=== PATIENT | male | born 1985 | race Caucasian/White ===

== ENCOUNTER 2017-02-08 09:13 | Observation (INO) | payer OTHER ==
[~2017-02-08] VITALS: Ht 195.6 cm; Wt 113.4 kg
[~2017-02-08 09:13] MED LIST: CALC200T23 PO; HYDR-2758 PO; IBUP-1027 PO; LISI40TA PO; MIRT15TA3 PO; ZIPR60CA2 PO
[2017-02-08] MEDS ORDERED: IV NORMAL SALINE 1000ML BAG 1,000 ML IV ONE ×2 (09:30→16:45)
[2017-02-08] MEDS ORDERED: PANTOPRAZOLE IV PUSH 40 MG VIAL. IVP ONE (09:30)
[2017-02-08] MEDS ORDERED: ONDANSETRON PF 4 MG/2 ML VIAL. IV ONE (09:30)
--- NOTE | 2017-02-08 09:35 | PHYS DOC ---
Past Medical History Past Medical History: Hypertension, Schizophrenia, Other Additional Past Medical Histor: PANCREATITIS, sepsis Past Surgical History: Other Additional Past Surgical Histo: ORAL SURGERY Alcohol Use: Heavy Drug Use: None Adult General Chief Complaint Chief Complaint: ABDOMINAL PAIN HPI HPI Patient is a 31 year old male presents to the emergency department stating that 3 days ago he was drinking beer. He states he develop nausea and vomiting since that time. He states within the last 24 hours he has vomited 10 times clear to green in color. He states for the last 3 days he has vomited 20+ times. He denies fever, chills, diarrhea and UTI symptoms. He does state he is having abdominal pain and discomfort that is different than his normal pancreatitis. Patient states he has hx of pancreatitis. Review of Systems Review of Systems Constitutional: Denies fever or chills [] Eyes: Denies change in visual acuity, redness, or eye pain [] HENT: Denies nasal congestion or sore throat [] Respiratory: Denies cough or shortness of breath [] Cardiovascular: No additional information not addressed in HPI [] GI: abdominal pain, nausea, vomiting, denies bloody stools or diarrhea [] : Denies dysuria or hematuria [] Musculoskeletal: Denies back pain or joint pain [] Integument: Denies rash or skin lesions [] Neurologic: Denies headache, focal weakness or sensory changes [] Endocrine: Denies polyuria or polydipsia [] Current Medications Current Medications Current Medications Medications (Trade) Dose Ordered Sig/Jamey Start Time Stop Time Status Last Admin Dose Admin Info (Do NOT chart on this entry -- for MONITORING) 1 each PRN DAILY PRN 02/08/17 09:45 02/10/17 09:44 Iohexol (Omnipaque 300 Mg/ml) 75 ml 1X ONCE 02/08/17 09:45 02/08/17 09:46 DC 02/08/17 10:04 75 ML Morphine Sulfate 4 mg PRN Q15MIN PRN 02/08/17 09:45 02/08/17 13:13 DC Ondansetron HCl (Zofran) 4 mg 1X ONCE 02/08/17 09:30 02/08/17 09:32 DC 02/08/17 09:54 4 MG Pantoprazole Sodium (Protonix Vial) 40 mg 1X ONCE 02/08/17 09:30 02/08/17 09:32 DC 02/08/17 09:54 40 MG Potassium Chloride (Klor-Con) 20 meq 1X ONCE 02/08/17 11:15 02/08/17 11:16 DC Sodium Chloride 1,000 ml @ 1,000 mls/hr 1X ONCE 02/08/17 09:30 02/08/17 10:29 DC 02/08/17 09:55 1,000 MLS/HR Allergies Allergies Allergies Coded Allergies Type Severity Reaction Last Updated Verified I S O L A T I O N *CONTACT* Allergy Unknown 07/31/15 Yes Penicillins Adverse Reaction Intermediate SEE COMMENT 07/30/15 Yes Physical Exam Physical Exam Constitutional: Well developed, well nourished, no acute distress, non-toxic appearance. [] HENT: Normocephalic, atraumatic, bilateral external ears normal, oropharynx moist, no oral exudates, nose normal. [] Eyes: PERRLA, EOMI, conjunctiva normal, no discharge. [] Neck: Normal range of motion, no tenderness, supple, no stridor. [] Cardiovascular:Heart rate regular rhythm, no murmur [] Lungs & Thorax: Bilateral breath sounds clear to auscultation [] Abdomen: Bowel sounds hypoactive, soft, generalized abdominal tenderness, no masses, no pulsatile masses. No rebound tenderness noted no guarding noted. Skin: Warm, dry, no erythema, no rash. [] Back: No tenderness Extremities: No tenderness, no cyanosis, no clubbing, ROM intact, no edema. [] Neurologic: Alert and oriented X 3, normal motor function, normal sensory function, no focal deficits noted. [] Psychologic: Affect normal, judgement normal, mood normal. [] Current Patient Data Vital Signs Vital Signs Date Time Temp Pulse Resp B/P (MAP) Pulse Ox O2 Delivery O2 Flow Rate FiO2 02/08/17 09:56 87 16 128/88 (101) 98 Room Air 02/08/17 09:25 98.1 98.1 Lab Values Laboratory Tests Test 02/08/17 09:20 02/08/17 09:30 Urine Collection Type Unknown Urine Color Yellow Urine Clarity Clear Urine pH 5.5 Urine Specific [place] 1.015 Urine Protein Negative mg/dL (NEG-TRACE) Urine Glucose (UA) Negative mg/dL (NEG) Urine Ketones (Stick) >=80 mg/dL (NEG) Urine Blood Small (NEG) Urine Nitrite Negative (NEG) Urine Bilirubin Small (NEG) Urine Urobilinogen Dipstick 0.2 mg/dL (0.2 mg/dL) Urine Leukocyte Esterase Negative (NEG) Urine RBC Occ /HPF (0-2) Urine WBC 11-20 /HPF (0-4) Urine Squamous Epithelial Cells Occ /LPF Urine Bacteria Few /HPF (0-FEW) Urine Hyaline Casts Few /HPF Urine Mucus Slight /LPF White Blood Count 8.8 x10^3/uL (4.0-11.0) Red Blood Count 5.68 x10^6/uL (4.30-5.70) Hemoglobin 17.1 g/dL (13.0-17.5) Hematocrit 47.7 % (39.0-53.0) Mean Corpuscular Volume 84 fL (79-100) Mean Corpuscular Hemoglobin 30 pg (25-35) Mean Corpuscular Hemoglobin Concent 36 g/dL (31-37) Red Cell Distribution Width 13.9 % (11.5-14.5) Platelet Count 247 x10^3/uL (140-400) Neutrophils (%) (Auto) 84 % (31-73) H Lymphocytes (%) (Auto) 10 % (24-48) L Monocytes (%) (Auto) 6 % (0-9) Eosinophils (%) (Auto) 0 % (0-3) Basophils (%) (Auto) 1 % (0-3) Neutrophils # (Auto) 7.4 x10^3uL (1.8-7.7) Lymphocytes # (Auto) 0.9 x10^3/uL (1.0-4.8) L Monocytes # (Auto) 0.5 x10^3/uL (0.0-1.1) Eosinophils # (Auto) 0.0 x10^3/uL (0.0-0.7) Basophils # (Auto) 0.1 x10^3/uL (0.0-0.2) Sodium Level 136 mmol/L (136-145) Potassium Level 3.3 mmol/L (3.5-5.1) L Chloride Level 94 mmol/L (98-107) L Carbon Dioxide Level 30 mmol/L (21-32) Anion Gap 12 (6-14) Blood Urea Nitrogen 9 mg/dL (8-26) Creatinine 1.2 mg/dL (0.7-1.3) Estimated GFR (Cockcroft-Gault) 71.1 BUN/Creatinine Ratio 8 (6-20) Glucose Level 145 mg/dL (70-99) H Calcium Level 10.2 mg/dL (8.5-10.1) H Total Bilirubin 2.1 mg/dL (0.2-1.0) H Aspartate Amino Transferase (AST) 35 U/L (15-37) Alanine Aminotransferase (ALT) 48 U/L (16-63) Alkaline Phosphatase 115 U/L (46-116) Total Protein 8.5 g/dL (6.4-8.2) H Albumin 4.7 g/dL (3.4-5.0) Albumin/Globulin Ratio 1.2 (1.0-1.7) Amylase Level 26 U/L (25-115) Lipase 101 U/L (73-393) Laboratory Tests 02/08/17 09:30 Laboratory Tests 02/08/17 09:30 EKG EKG [] Radiology/Procedures Radiology/Procedures [][facility] [address] [place] [address] IMAGING REPORT Signed PATIENT: VICENTE MONTGOMERY ACCOUNT: [id number] : 1985 LOCATION: ER AGE: 31 SEX: M EXAM STATUS: REG ER ORD. PHYSICIAN: NELSON MUÑOZ APRN REASON: abdominal pain and discomfort 3 days hx pancreatitis PROCEDURE: CT ABD PELV W/ IV CONTRST ONLY Indication abdominal pain. Nausea and vomiting. Duration of symptoms 3 days. Axial images through the abdomen and pelvis were obtained. Approximately 75 cc of Omnipaque 300 was administered intravenously. A small amount of contrast is noted in the right colon and rectosigmoid. No oral contrast was administered for this exam. Note is made of a previous examination 07/29/2015. The lung bases are clear. The liver and spleen appear unremarkable. The gallbladder appears grossly normal. No adrenal or renal anomalies are seen and the pancreas appears unremarkable. Acute finding in the abdomen is not seen. The appendix is seen in the right lower quadrant and appears normal. No acute finding is seen in the pelvis. IMPRESSION: No acute finding seen in the abdomen or pelvis DICTATED and SIGNED BY: HAYLEY NICOLE MD DATE: 02/08/17 1029 CC: NELSON MUÑOZ APRN; NO PCP ~ Course & Med Decision Making Course & Med Decision Making Pertinent Labs and Imaging studies reviewed. (See chart for details) Patients K+ 3.3 he will be provided with K+ supplement here in the emergency department. He had no vomiting here in the emergency department. Otherwise CBC, CMP amylase and lipase and CT scan normal. Patient will be sent home with Lorado , phenergan and protonix for pain. Recommended patient followup with primary care provider in 3-5 days. Signs and symptoms to return to the emergency department has been provided. Patient agrees with discharge instructions, treatment regimen and followup recommendations. After providing the patient with discharge instructions a PO challenge was given with patient vomiting. Patient will be placed in the hospital for obs status. Spoke with Dr Rosario in regards to patient being placed in the hospital as observation. [] Dragon Disclaimer Dragon Disclaimer This electronic medical record was generated, in whole or in part, using a voice recognition dictation system. Departure Departure Impression: Primary Impression: Abdominal pain Additional Impression: Intractable vomiting Disposition: ADMITTED INPATIENT Condition: STABLE Referrals: NO PCP (PCP) Patient Instructions: Abdominal Pain (Nonspecific) Problem Qualifiers NELSON MUÑOZ APRN Feb 08, 2017 09:35
[2017-02-08 09:37] LABS: BILIRUBIN,URINE SMALL (NEG); GLUCOSE,URINE NEGATIVE (NEG); NITRITE,URINE NEGATIVE (NEG); PH,URINE 5.5; PROTEIN,URINE NEGATIVE (NEG-TRACE); UROBILINOGEN,URINE 0.2 mg/dL (0.2 mg/dL)
[2017-02-08 09:42] LABS: BASO # 0.1 x10^3/uL (0.0-0.2); BASO % 1 % (0-3); EOS % 0 % (0-3); HEMATOCRIT 47.7 % (39.0-53.0); HEMOGLOBIN 17.1 g/dL (13.0-17.5); LYMPH # 0.9 x10^3/uL (1.0-4.8); LYMPH % 10 % (24-48); MEAN CORPUSCULAR HEMOGLOBIN 30 pg (25-35); MEAN CORPUSCULAR HGB CONC 36 g/dL (31-37); MEAN CORPUSCULAR VOLUME 84 fL (79-100); MONO % 6 % (0-9); NEUT % 84 % (31-73); PLATELET COUNT 247 x10^3/uL (140-400); RED BLOOD COUNT 5.68 x10^6/uL (4.30-5.70); RED CELL DISTRIBUTION WIDTH 13.9 % (11.5-14.5); WHITE BLOOD COUNT 8.8 x10^3/uL (4.0-11.0)
[2017-02-08] MEDS ORDERED: CONTRAST GIVEN MC PRN (09:45)
[2017-02-08] MEDS ORDERED: IOHEXOL 300 MG/ML 75 ML VIAL IV ONE (09:45)
[2017-02-08] MEDS ORDERED: MORPHINE SULFATE 4 MG/ML DISP.SYRIN. IV/SQ PRN (09:45)
--- NOTE | 2017-02-08 09:47 | ACF ---
Admission Forms Criteria VOMITING Clinical Indications for Admission to Inpatient Care ( Place 'X' for any and all applicable criteria): Admission is indicated for 1 or more of the following(1)(2)(3): [ ]I. Complete or partial gastrointestinal obstruction [ ]II. Vomiting due to significant metabolic derangement (eg, severe hypercalcemia, diabetic ketoacidosis) [ ]III. Other cause of vomiting requiring hospitalization (eg, poisoning, increased intracranial pressure) [X]IV. Inpatient admission required rather than observation care because of 1 or more of the following [ ]i) Hemodynamic instability [X]ii) Vomiting that is severe or persistent indicated by 1 or more of the following 1) Numerous episodes of vomiting in past 24hours (eg, every 1 to 2 hours) 2) Suggests severe underlying cause or complication (eg , projectile, feculent, bilious, coffee ground, bloody) 3) Appropriate antiemetic treatment (eg, repeated oral or parenteral dosing) does not sufficiently reduce vomiting within 12 to 24 hours of treatment 4) Treatment regimen necessary to adequately control vomiting requires inpatient level of care (eg, not immediately available in outpatient setting) [ ]iii) Severe electrolyte abnormalities requiring inpatient care [ ]iv) Severe pain requiring acute inpatient management( Continuous or frequent (eg, every 2 to 4 hours) parental analgesics or analgesic regimen that can only be performed or initiated in inpatient setting) [ ]v) High fever or infection requiring inpatient admission as indicated by 1 or more of the following(7)(8): [ ]1) Appropriate outpatient or observation care antimicrobial treatment unavailable, not effective, or not feasible [ ]2) Documented bacteremia [ ]3) Temp >104.9 degrees F (40.5 degrees C) (oral) [ ]4) Temp >103.1 degrees F (39.5 C) (oral) or <96.8 degrees F (36 C) (rectal) that does not respond to all emergency treatment measures [ ]vi) Acute renal failure [ ]vii) IV fluid required rather than oral rehydration to replace significant on going losses (greater than 3 L/m2 per day) [ ]viii) Parenteral nutrition regimen that must be implemented on inpatient basis [ ]ix) Other condition, treatment or monitoring requiring inpatient admission Extended stay beyond goal length of stay may be needed for(1)(4): [ ]a) Severe vomiting [ ]b) Persistent vomiting, vital sign changes, severe electrolyte imbalance , or diagnosed cause of vomiting that requires continued hospitalization (eg, gastrointestinal obstruction , increased intracranial pressure) [ ]c) Surgery to treat identified causes of vomiting (eg, bowel obstruction , intracranial process) [ ]d) Comorbid illness that requires inpatient care (eg, acute heart failure , renal failure) [ ]e) Need for inpatient endoscopy The original [facility] [employer] content created by [employer] has been revised. The portions of the content which have been revised are identified through the use of italic text or in bold, and [facility] has neither reviewed nor approved the modified material. All other unmodified content is copyright [facility] [employer]. Please see references footnoted in the original [facility] [employer] edition 2016 Admission Criteria Met?: Yes BLANCA SCHULTE Feb 08, 2017 09:47
[2017-02-08 09:50] LABS: CALCIUM 10.2 mg/dL (8.5-10.1); CREATININE 1.2 mg/dL (0.7-1.3); GFR 71.1; POTASSIUM 3.3 mmol/L (3.5-5.1)
[2017-02-08 09:51] LABS: RBC,URINE OCC /HPF (0-2)
[2017-02-08 09:52] LABS: BACTERIA,URINE FEW /HPF (0-FEW); SQUAMOUS EPITHELIAL CELL,UR OCC /LPF
[2017-02-08 09:56] LABS: ALBUMIN 4.7 g/dL (3.4-5.0); ALBUMIN/GLOBULIN RATIO 1.2 (1.0-1.7); TOTAL BILIRUBIN 2.1 mg/dL (0.2-1.0); TOTAL PROTEIN 8.5 g/dL (6.4-8.2)
--- NOTE | 2017-02-08 10:39 | RAD ---
Indication abdominal pain. Nausea and vomiting. Duration of symptoms 3 days. Axial images through the abdomen and pelvis were obtained. Approximately 75 cc of Omnipaque 300 was administered intravenously. A small amount of contrast is noted in the right colon and rectosigmoid. No oral contrast was administered for this exam. Note is made of a previous examination 07/29/2015. The lung bases are clear. The liver and spleen appear unremarkable. The gallbladder appears grossly normal. No adrenal or renal anomalies are seen and the pancreas appears unremarkable. Acute finding in the abdomen is not seen. The appendix is seen in the right lower quadrant and appears normal. No acute finding is seen in the pelvis. IMPRESSION: No acute finding seen in the abdomen or pelvis
[2017-02-08] MEDS ORDERED: PANT20TA2 PO (11:15)
[2017-02-08] MEDS ORDERED: ONDA4TAB7 PO (11:15)
[2017-02-08] MEDS ORDERED: POTASSIUM CHLORIDE 20 MEQ TABLET.ER. PO ONE (11:15)
[2017-02-08] MEDS ORDERED: HYDR-971 PO (11:15)
[2017-02-08] MEDS: IV NORMAL SALINE 1000ML BAG 1,000 ML IV SCH ×2 (11:39→15:28)
[2017-02-08] MEDS ORDERED: ONDANSETRON PF 4 MG/2 ML VIAL. IV PRN (11:45)
[2017-02-08] MEDS ORDERED: MORPHINE SULFATE 4 MG/ML DISP.SYRIN. IV PRN (11:45)
[2017-02-08 13:02] VITALS: BP 159/73
[2017-02-08] MEDS: fentaNYL PF VIAL 100 MCG/2 ML VIAL IV PRN ×3 (13:27→22:16)
[2017-02-08] MEDS ORDERED: TRAZ150T49 PO (14:00)
[2017-02-08] MEDS ORDERED: HYDR50TA PO (14:06)
[2017-02-08 15:00] VITALS: BP 150/103
[2017-02-08] MEDS: NICOTINE 21MG PATCH. TD SCH (15:23)
[2017-02-08] MEDS ORDERED: hydrALAZINE 20 MG/ML VIAL. IVP PRN ×2 (16:15→16:45)
--- NOTE | 2017-02-08 16:33 | PDOC1 ---
History and Physical Past Medical History Psych: Schizophrenia Past Surgical History Past Surgical History: No pertinent history Family History Family History: No Significant Social History ALCOHOL: heavy Drugs: None Current Problem List Problem List Problems Medical Problems: (1) Abdominal pain Status: Acute (2) Intractable vomiting Status: Acute Current Medications Current Medications Current Medications Medications (Trade) Dose Ordered Sig/Jamey Start Time Stop Time Status Last Admin Dose Admin Fentanyl Citrate (Fentanyl 2ml Vial) 50 mcg PRN Q4HRS PRN 02/08/17 13:15 02/08/17 13:27 50 MCG Hydralazine HCl (Apresoline) 10 mg PRN Q4HRS PRN 02/08/17 16:15 Info (Do NOT chart on this entry -- for MONITORING) 1 each PRN DAILY PRN 02/08/17 09:45 02/10/17 09:44 Iohexol (Omnipaque 300 Mg/ml) 75 ml 1X ONCE 02/08/17 09:45 02/08/17 09:46 DC 02/08/17 10:04 75 ML Morphine Sulfate 4 mg PRN Q2HR PRN 02/08/17 11:45 02/09/17 11:44 Nicotine (Nicoderm Cq 21mg) 1 patch DAILY 02/08/17 15:30 02/08/17 15:23 1 PATCH Ondansetron HCl (Zofran) 4 mg PRN Q8HRS PRN 02/08/17 11:45 02/09/17 11:44 02/08/17 15:29 4 MG Pantoprazole Sodium (Protonix Vial) 40 mg 1X ONCE 02/08/17 09:30 02/08/17 09:32 DC 02/08/17 09:54 40 MG Potassium Chloride (Klor-Con) 20 meq 1X ONCE 02/08/17 11:15 02/08/17 11:16 DC Sodium Chloride 1,000 ml @ 125 mls/hr Q8H 02/08/17 11:39 02/09/17 11:38 02/08/17 15:28 125 MLS/HR Allergies Allergies Allergies Coded Allergies Type Severity Reaction Last Updated Verified I S O L A T I O N *CONTACT* Allergy Unknown 07/31/15 Yes Penicillins Adverse Reaction Intermediate SEE COMMENT 07/30/15 Yes ROS Review of System CONSTITUTIONAL: No fever or chills EYES: No recent changes SKIN: No rash or itching CARDIOVASCULAR: No chest pain, syncope, palpitations, or edema RESPIRATORY: No SOB or cough GASTROINTESTINAL: nausea, vomiting or abdominal pain NEUROLOGICAL: No headaches or weakness ENDOCRINE: No cold or heat intolerance GENITOURINARY: No urgency or frequency of urination MUSCULOSKELETAL: No back pain or joint pain LYMPHATICS: No enlarged lymph nodes PSYCHIATRIC: No anxiety or depression Physical Exam Physical Exam GEN.: No apparent distress. Alert and oriented. HEENT: Head is normocephalic, atraumatic NECK: Supple. NO jvd LUNGS: Clear to auscultation. Normal airflow HEART: tachycardia. , S1, S2 present. Peripheral pulses intact ABDOMEN: Soft, supra pubic tenderness, BS present. EXTREMITIES: Without any cyanosis. NEUROLOGIC: Normal speech, normal tone PSYCHIATRIC: Normal affect, normal mood. SKIN: No visible. ulcerations Vitals Vitals Vital Signs Date Time Temp Pulse Resp B/P (MAP) Pulse Ox O2 Delivery O2 Flow Rate FiO2 02/08/17 15:00 100.0 107 22 150/103 (119) 96 Room Air 100.0 Labs Labs Laboratory Tests Test 02/08/17 09:20 02/08/17 09:30 Urine Collection Type Unknown Urine Color Yellow Urine Clarity Clear Urine pH 5.5 Urine Specific [place] 1.015 Urine Protein Negative mg/dL (NEG-TRACE) Urine Glucose (UA) Negative mg/dL (NEG) Urine Ketones (Stick) >=80 mg/dL (NEG) Urine Blood Small (NEG) Urine Nitrite Negative (NEG) Urine Bilirubin Small (NEG) Urine Urobilinogen Dipstick 0.2 mg/dL (0.2 mg/dL) Urine Leukocyte Esterase Negative (NEG) Urine RBC Occ /HPF (0-2) Urine WBC 11-20 /HPF (0-4) Urine Squamous Epithelial Cells Occ /LPF Urine Bacteria Few /HPF (0-FEW) Urine Hyaline Casts Few /HPF Urine Mucus Slight /LPF White Blood Count 8.8 x10^3/uL (4.0-11.0) Red Blood Count 5.68 x10^6/uL (4.30-5.70) Hemoglobin 17.1 g/dL (13.0-17.5) Hematocrit 47.7 % (39.0-53.0) Mean Corpuscular Volume 84 fL (79-100) Mean Corpuscular Hemoglobin 30 pg (25-35) Mean Corpuscular Hemoglobin Concent 36 g/dL (31-37) Red Cell Distribution Width 13.9 % (11.5-14.5) Platelet Count 247 x10^3/uL (140-400) Neutrophils (%) (Auto) 84 % (31-73) Lymphocytes (%) (Auto) 10 % (24-48) Monocytes (%) (Auto) 6 % (0-9) Eosinophils (%) (Auto) 0 % (0-3) Basophils (%) (Auto) 1 % (0-3) Neutrophils # (Auto) 7.4 x10^3uL (1.8-7.7) Lymphocytes # (Auto) 0.9 x10^3/uL (1.0-4.8) Monocytes # (Auto) 0.5 x10^3/uL (0.0-1.1) Eosinophils # (Auto) 0.0 x10^3/uL (0.0-0.7) Basophils # (Auto) 0.1 x10^3/uL (0.0-0.2) Sodium Level 136 mmol/L (136-145) Potassium Level 3.3 mmol/L (3.5-5.1) Chloride Level 94 mmol/L (98-107) Carbon Dioxide Level 30 mmol/L (21-32) Anion Gap 12 (6-14) Blood Urea Nitrogen 9 mg/dL (8-26) Creatinine 1.2 mg/dL (0.7-1.3) Estimated GFR (Cockcroft-Gault) 71.1 BUN/Creatinine Ratio 8 (6-20) Glucose Level 145 mg/dL (70-99) Calcium Level 10.2 mg/dL (8.5-10.1) Total Bilirubin 2.1 mg/dL (0.2-1.0) Aspartate Amino Transf (AST/SGOT) 35 U/L (15-37) Alanine Aminotransferase (ALT/SGPT) 48 U/L (16-63) Alkaline Phosphatase 115 U/L (46-116) Total Protein 8.5 g/dL (6.4-8.2) Albumin 4.7 g/dL (3.4-5.0) Albumin/Globulin Ratio 1.2 (1.0-1.7) Amylase Level 26 U/L (25-115) Lipase 101 U/L (73-393) Laboratory Tests Test 02/08/17 09:20 02/08/17 09:30 Urine Collection Type Unknown Urine Color Yellow Urine Clarity Clear Urine pH 5.5 Urine Specific [place] 1.015 Urine Protein Negative mg/dL (NEG-TRACE) Urine Glucose (UA) Negative mg/dL (NEG) Urine Ketones (Stick) >=80 mg/dL (NEG) Urine Blood Small (NEG) Urine Nitrite Negative (NEG) Urine Bilirubin Small (NEG) Urine Urobilinogen Dipstick 0.2 mg/dL (0.2 mg/dL) Urine Leukocyte Esterase Negative (NEG) Urine RBC Occ /HPF (0-2) Urine WBC 11-20 /HPF (0-4) Urine Squamous Epithelial Cells Occ /LPF Urine Bacteria Few /HPF (0-FEW) Urine Hyaline Casts Few /HPF Urine Mucus Slight /LPF White Blood Count 8.8 x10^3/uL (4.0-11.0) Red Blood Count 5.68 x10^6/uL (4.30-5.70) Hemoglobin 17.1 g/dL (13.0-17.5) Hematocrit 47.7 % (39.0-53.0) Mean Corpuscular Volume 84 fL (79-100) Mean Corpuscular Hemoglobin 30 pg (25-35) Mean Corpuscular Hemoglobin Concent 36 g/dL (31-37) Red Cell Distribution Width 13.9 % (11.5-14.5) Platelet Count 247 x10^3/uL (140-400) Neutrophils (%) (Auto) 84 % (31-73) Lymphocytes (%) (Auto) 10 % (24-48) Monocytes (%) (Auto) 6 % (0-9) Eosinophils (%) (Auto) 0 % (0-3) Basophils (%) (Auto) 1 % (0-3) Neutrophils # (Auto) 7.4 x10^3uL (1.8-7.7) Lymphocytes # (Auto) 0.9 x10^3/uL (1.0-4.8) Monocytes # (Auto) 0.5 x10^3/uL (0.0-1.1) Eosinophils # (Auto) 0.0 x10^3/uL (0.0-0.7) Basophils # (Auto) 0.1 x10^3/uL (0.0-0.2) Sodium Level 136 mmol/L (136-145) Potassium Level 3.3 mmol/L (3.5-5.1) Chloride Level 94 mmol/L (98-107) Carbon Dioxide Level 30 mmol/L (21-32) Anion Gap 12 (6-14) Blood Urea Nitrogen 9 mg/dL (8-26) Creatinine 1.2 mg/dL (0.7-1.3) Estimated GFR (Cockcroft-Gault) 71.1 BUN/Creatinine Ratio 8 (6-20) Glucose Level 145 mg/dL (70-99) Calcium Level 10.2 mg/dL (8.5-10.1) Total Bilirubin 2.1 mg/dL (0.2-1.0) Aspartate Amino Transf (AST/SGOT) 35 U/L (15-37) Alanine Aminotransferase (ALT/SGPT) 48 U/L (16-63) Alkaline Phosphatase 115 U/L (46-116) Total Protein 8.5 g/dL (6.4-8.2) Albumin 4.7 g/dL (3.4-5.0) Albumin/Globulin Ratio 1.2 (1.0-1.7) Amylase Level 26 U/L (25-115) Lipase 101 U/L (73-393) VTE Prophylaxis Ordered VTE Prophylaxis Devices: No VTE Pharmacological Prophylaxi: Yes SHIRLEY NAPOLES MD Feb 08, 2017 16:33
[2017-02-08] MEDS ORDERED: ACETAMINOPHEN 325 MG TABLET. PO PRN (16:45)
[2017-02-08] MEDS ORDERED: ALBUTEROL SULFATE 2.5 MG/3 ML NEBU. NEB PRN (16:45)
[2017-02-08] MEDS ORDERED: HYDROcodone/APAP 5/325MG 1 TAB TABLET PO PRN (16:45)
[2017-02-08] MEDS: ENOXAPARIN 40 MG/0.4 ML SYRINGE. SQ SCH (17:00)
[2017-02-08] MEDS ORDERED: VANCOMYCIN PER PHARMACY MC PRN (17:00)
[2017-02-08] MEDS ORDERED: VANCOMYCIN 2 GM in IV NORMAL SALINE 500ML BAG 500 ML IV ONE (17:30)
[2017-02-08 19:48] VITALS: BP 134/85
[2017-02-08] MEDS ORDERED: HALO5TAB PO (22:14)
[2017-02-08] MEDS ORDERED: BENZ2AMP4 PO (22:14)
[2017-02-08] MEDS: ONDANSETRON PF 4 MG/2 ML VIAL. IV PRN (22:16)
[2017-02-08] MEDS ORDERED: BENZTROPINE 2 MG/2 ML AMPUL. IV SCH (22:30)
[2017-02-08] MEDS: HALOPERIDOL 5 MG TABLET. PO SCH (22:49)
[2017-02-08] MEDS ORDERED: traZODone 100 MG TABLET. PO SCH ×2 (23:00)
[2017-02-08] MEDS ORDERED: HALOPERIDOL 5 MG TABLET. PO SCH (23:00)
[2017-02-08] MEDS ORDERED: hydrOXYzine PAMOATE 25 MG CAPSULE PO SCH (23:00)
[2017-02-08 23:08] VITALS: BP 139/87
--- NOTE | 2017-02-08 23:32 | HP ---
ADMIT DATE: 02/08/2017 CHIEF COMPLAINT: Abdominal pain, nausea, and vomiting. HISTORY OF THE PRESENT ILLNESS: A 31-year-old male patient with prior history of alcoholic pancreatitis who presents to the ER with complaints of nausea, vomiting, and abdominal pain. Symptoms started last couple of days, maybe 3 days, ago. The patient was abstaining from alcohol for a while. However, he drank alcohol intermittently for the last one month. He vomited several times yesterday, nearly 10 times. I had seen his vomitus in the hospital. He states his abdominal pain is located just below his umbilicus and denies any radiation, not able to keep anything down. The patient denies any sick contacts or travel history. He is running some fevers in the hospital. PAST MEDICAL HISTORY: Hypertension, schizophrenia, and pancreatitis. SURGICAL HISTORY: Oral surgery. PERSONAL HISTORY: Alcoholism - heavy. FAMILY HISTORY: No GI cancers. REVIEW OF SYSTEMS: Please see my electronic H and P. PHYSICAL EXAMINATION: Please see my electronic H and P. ALLERGIES: PENICILLIN. HOME MEDICATIONS: Reviewed and reconciled. Please see the MRAD. LABORATORY FINDINGS: CBC: WBC is 8.8, hemoglobin 17.1, MCV is 84, and platelets 247. Chemistry: Sodium is 136, potassium is 3.3, chloride is 94, anion gap is 12, creatinine is 1.2, total bilirubin 2.1, AST and ALT 35 and 48. Coagulation Panel: Coagulation panel: PT is 15.8, INR is 1.3. Urine: Leukocyte esterase is negative, ketones present more than 80. Toxicology: Not done. IMAGING STUDIES: CT of the abdomen and pelvis showed no acute findings in the abdomen and pelvis. ASSESSMENT AND PLAN: 1. Acute nausea, vomiting, or abdominal pain. Possible differentials are infectious process versus pancreatitis. 2. History of alcoholism, recurrent. 3. Hypokalemia. 4. History of seizures. 5. Schizophrenia. 6. Excessive alcohol intake. 7. Fevers. PLAN: 1. The patient has been running fevers. I will obtain some blood cultures and start him on IV Rocephin and Flagyl for now. Consult Infectious Disease if the patient continues to show any signs of worsening clinical scenario. 2. I will give 1 L bolus now and continue IV hydration 125 mL per hour. 3. Monitor CBC, BMP, ESR, and CRP. 4. Old records reviewed. The patient has a history of MRSA in the past. 5. Blood cultures have been ordered. 6. CT abdomen did not show any signs of infectious process at this time. 7. Alcohol withdrawal prevention and treatment. 8. N.p.o. 9. P.r.n. hydralazine for hypertension. 10. Potassium has been replaced. 11. Prognosis guarded. Plan was explained to the patient. SHIRLEY NAPOLES MD DR: NEW/shaw JOB#: [id number] / [id number] JOE
[2017-02-09] MEDS: VANCOMYCIN 1.75 GM in IV NORMAL SALINE 500ML BAG 500 ML IV SCH ×2 (00:49→09:36)
[2017-02-09 03:00] VITALS: BP 133/73
[2017-02-09] MEDS: IV NORMAL SALINE 1000ML BAG 1,000 ML IV SCH (05:18)
[2017-02-09] MEDS: ONDANSETRON PF 4 MG/2 ML VIAL. IV PRN ×2 (05:58→12:58)
[2017-02-09 05:59] LABS: BASO % 0 % (0-3); EOS % 2 % (0-3); HEMATOCRIT 40.9 % (39.0-53.0); HEMOGLOBIN 14.3 g/dL (13.0-17.5); LYMPH # 1.6 x10^3/uL (1.0-4.8); LYMPH % 16 % (24-48); MEAN CORPUSCULAR HEMOGLOBIN 30 pg (25-35); MEAN CORPUSCULAR HGB CONC 35 g/dL (31-37); MEAN CORPUSCULAR VOLUME 85 fL (79-100); MONO % 9 % (0-9); NEUT % 73 % (31-73); PLATELET COUNT 204 x10^3/uL (140-400); RED BLOOD COUNT 4.84 x10^6/uL (4.30-5.70); RED CELL DISTRIBUTION WIDTH 13.7 % (11.5-14.5); WHITE BLOOD COUNT 10.5 x10^3/uL (4.0-11.0)
[2017-02-09] MEDS: fentaNYL PF VIAL 100 MCG/2 ML VIAL IV PRN (05:59)
[2017-02-09 06:18] LABS: CALCIUM 8.1 mg/dL (8.5-10.1); CREATININE 0.9 mg/dL (0.7-1.3); GFR 99.1
[2017-02-09 06:32] LABS: POTASSIUM 2.7 mmol/L (3.5-5.1)
[2017-02-09 07:00] VITALS: BP 146/93
[2017-02-09] MEDS: POTASSIUM CHLORIDE 10MEQ 100 ML IV SCH ×4 (07:05→10:00)
[2017-02-09] MEDS: HALOPERIDOL 5 MG TABLET. PO SCH (08:29)
[2017-02-09] MEDS: NICOTINE 21MG PATCH. TD SCH (08:30)
--- NOTE | 2017-02-09 09:33 | PDOC ---
PROGRESS NOTES Chief Complaint Chief Complaint Abd pain N/V/D ASSESSMENT AND PLAN: 1. Abd pain/N/V/D: resolved. ?viral gastroenteritis vs EtOH excess. trial of clear liquids; if tolerated, advance to reg (bland) diet 2, Fever: resolved. hold Abx. 2. Hypolkalemia: replete PO/IV 3. EtOH abuse: no drug screen done in ER. CIWA 4. Hx sz: no on meds at home; ? EtOH related 5. Schizophrenia, paranoid: cont home meds. 6. HTN: restart home meds 7. HAWLEY: excedrin 8. Dispo: home later today if tolerating PO History of Present Illness History of Present Illness feels much better today. sx all resolved. helped himself to some apple juice Vitals Vitals Vital Signs Date Time Temp Pulse Resp B/P (MAP) Pulse Ox O2 Delivery O2 Flow Rate FiO2 02/09/17 07:00 98.4 97 18 146/93 (110) 92 Room Air 98.4 Physical Exam General: Alert, Oriented X3, Cooperative Heart: Regular rate Lungs: Clear Abdomen: Normal bowel sounds, Soft, No tenderness Extremities: No edema Skin: No rashes Labs LABS Laboratory Tests Test 02/08/17 09:30 02/09/17 05:15 White Blood Count 8.8 x10^3/uL (4.0-11.0) 10.5 x10^3/uL (4.0-11.0) Red Blood Count 5.68 x10^6/uL (4.30-5.70) 4.84 x10^6/uL (4.30-5.70) Hemoglobin 17.1 g/dL (13.0-17.5) 14.3 g/dL (13.0-17.5) Hematocrit 47.7 % (39.0-53.0) 40.9 % (39.0-53.0) Mean Corpuscular Volume 84 fL (79-100) 85 fL (79-100) Mean Corpuscular Hemoglobin 30 pg (25-35) 30 pg (25-35) Mean Corpuscular Hemoglobin Concent 36 g/dL (31-37) 35 g/dL (31-37) Red Cell Distribution Width 13.9 % (11.5-14.5) 13.7 % (11.5-14.5) Platelet Count 247 x10^3/uL (140-400) 204 x10^3/uL (140-400) Neutrophils (%) (Auto) 84 % (31-73) 73 % (31-73) Lymphocytes (%) (Auto) 10 % (24-48) 16 % (24-48) Monocytes (%) (Auto) 6 % (0-9) 9 % (0-9) Eosinophils (%) (Auto) 0 % (0-3) 2 % (0-3) Basophils (%) (Auto) 1 % (0-3) 0 % (0-3) Neutrophils # (Auto) 7.4 x10^3uL (1.8-7.7) 7.6 x10^3uL (1.8-7.7) Lymphocytes # (Auto) 0.9 x10^3/uL (1.0-4.8) 1.6 x10^3/uL (1.0-4.8) Monocytes # (Auto) 0.5 x10^3/uL (0.0-1.1) 1.0 x10^3/uL (0.0-1.1) Eosinophils # (Auto) 0.0 x10^3/uL (0.0-0.7) 0.2 x10^3/uL (0.0-0.7) Basophils # (Auto) 0.1 x10^3/uL (0.0-0.2) 0.0 x10^3/uL (0.0-0.2) Sodium Level 136 mmol/L (136-145) 140 mmol/L (136-145) Potassium Level 3.3 mmol/L (3.5-5.1) 2.7 mmol/L (3.5-5.1) Chloride Level 94 mmol/L (98-107) 101 mmol/L (98-107) Carbon Dioxide Level 30 mmol/L (21-32) 32 mmol/L (21-32) Anion Gap 12 (6-14) 7 (6-14) Blood Urea Nitrogen 9 mg/dL (8-26) 7 mg/dL (8-26) Creatinine 1.2 mg/dL (0.7-1.3) 0.9 mg/dL (0.7-1.3) Estimated GFR (Cockcroft-Gault) 71.1 99.1 BUN/Creatinine Ratio 8 (6-20) Glucose Level 145 mg/dL (70-99) 104 mg/dL (70-99) Calcium Level 10.2 mg/dL (8.5-10.1) 8.1 mg/dL (8.5-10.1) Total Bilirubin 2.1 mg/dL (0.2-1.0) Aspartate Amino Transf (AST/SGOT) 35 U/L (15-37) Alanine Aminotransferase (ALT/SGPT) 48 U/L (16-63) Alkaline Phosphatase 115 U/L (46-116) Total Protein 8.5 g/dL (6.4-8.2) Albumin 4.7 g/dL (3.4-5.0) Albumin/Globulin Ratio 1.2 (1.0-1.7) Amylase Level 26 U/L (25-115) Lipase 101 U/L (73-393) FIDELINA MCKNIGHT MD Feb 09, 2017 09:33
[2017-02-09] MEDS: POTASSIUM CHLORIDE 20 MEQ TABLET.ER. PO SCH ×2 (10:00→12:57)
[2017-02-09] MEDS ORDERED: ASA/APAP/CAFFEINE 250/250/65MG TABLET. PO PRN (10:00)
[2017-02-09] MEDS ORDERED: LISINOPRIL 40 MG TABLET. PO SCH (10:30)
[2017-02-09 11:00] VITALS: BP 113/71
[2017-02-09 15:00] VITALS: BP 121/76
[2017-02-09] MEDS ORDERED: ONDA4TAB10 SL (16:11)
[2017-02-09] MEDS: ENOXAPARIN 40 MG/0.4 ML SYRINGE. SQ SCH (16:24)
[2017-02-09] MEDS ORDERED: MIRTAZAPINE 15 MG TABLET PO SCH (21:00)
[2017-02-09] MEDS ORDERED: ZIPRASIDONE 60 MG CAPSULE. PO SCH (21:00)
[2017-02-09] MEDS ORDERED: HYDROXYZINE HCL PO SCH (21:00)
== END 2017-02-09 18:00 | disposition home or self-care (01) ==
LOC: ER 09:13 → 4 NORTH 11:20 → INTOOBSV 11:20 → 4 NORTH 11:57
PROVIDERS: ADMIT Internal Medicine; ATTEND Internal Medicine
DX: R10.9 Unspecified abdominal pain (principal); R11.0 Nausea; R11.10 Vomiting, unspecified; F10.10 Alcohol abuse, uncomplicated; E87.6 Hypokalemia; I10 Essential (primary) hypertension; F20.0 Paranoid schizophrenia; Z87.19 Personal history of other diseases of the digestive system
CPT/HCPCS: 36415; 74177; 80048; 80053; 81001; 82150; 83690; 85027; 87086; 94640; 96361; 96365; 96366; 96367; 96368; 96375; 96376; 99285; C9113; G0378; J0360; J0696; J2405; J3010; J3370; J3480; J7030; J7040; Q0177; Q9967; G0379

== ENCOUNTER 2017-03-10 02:39 | Inpatient (IN) | payer OTHER ==
[2017-03-10] VITALS (8 sets, daily range): BP systolic 141–154; BP diastolic 64–110
[~2017-03-10] VITALS: Ht 195.6 cm; Wt 110.7 kg
[~2017-03-10 02:39] MED LIST changes: +BENZ2AMP4 PO; +HALO5TAB PO; +HYDR-971 PO; +HYDR50TA PO; +ONDA4TAB10 SL; +ONDA4TAB7 PO; +PANT20TA2 PO; +TRAZ150T49 PO
[2017-03-10] MEDS ORDERED: ONDANSETRON PF 4 MG/2 ML VIAL. ONE (03:00)
[2017-03-10] MEDS ORDERED: IV NORMAL SALINE 500ML BAG 500 ML IV ONE (03:00)
[2017-03-10] MEDS: HYDROmorphone 2 MG/ML VIAL IV PRN ×9 (03:09→23:08)
[2017-03-10 03:14] LABS: BASO # 0.1 x10^3/uL (0.0-0.2); BASO % 0 % (0-3); EOS % 0 % (0-3); HEMATOCRIT 51.8 % (39.0-53.0); HEMOGLOBIN 17.6 g/dL (13.0-17.5); LYMPH # 1.5 x10^3/uL (1.0-4.8); LYMPH % 8 % (24-48); MEAN CORPUSCULAR HEMOGLOBIN 29 pg (25-35); MEAN CORPUSCULAR HGB CONC 34 g/dL (31-37); MEAN CORPUSCULAR VOLUME 86 fL (79-100); MONO % 6 % (0-9); NEUT % 85 % (31-73); PLATELET COUNT 205 x10^3/uL (140-400); RED BLOOD COUNT 6.04 x10^6/uL (4.30-5.70); WHITE BLOOD COUNT 17.9 x10^3/uL (4.0-11.0)
[2017-03-10 03:15] LABS: BILIRUBIN,URINE NEGATIVE (NEG); GLUCOSE,URINE NEGATIVE (NEG); NITRITE,URINE NEGATIVE (NEG); PH,URINE 7.5; PROTEIN,URINE NEGATIVE (NEG-TRACE); UROBILINOGEN,URINE 0.2 mg/dL (0.2 mg/dL)
[2017-03-10 03:23] LABS: BARBITURATES NEG (NEG); BENZODIAZEPINES NEG (NEG); CANNABINOIDS POS (NEG); COCAINE NEG (NEG); METHADONE NEG (NEG); OPIATES NEG (NEG); PHENCYCLIDINE NEG (NEG); RBC,URINE OCC /HPF (0-2)
[2017-03-10 03:24] LABS: BACTERIA,URINE 0 /HPF (0-FEW); SQUAMOUS EPITHELIAL CELL,UR OCC /LPF
[2017-03-10 03:30] LABS: CALCIUM 11.2 mg/dL (8.5-10.1); CREATININE 1.3 mg/dL (0.7-1.3); GFR 64.8; POTASSIUM 3.3 mmol/L (3.5-5.1)
[2017-03-10] MEDS ORDERED: ONDANSETRON PF 4 MG/2 ML VIAL. IV ONE (03:30)
[2017-03-10] MEDS ORDERED: ONDANSETRON ODT 4 MG TAB.RAPDIS. PO ONE (03:30)
[2017-03-10] MEDS ORDERED: IV NORMAL SALINE 1000ML BAG 1,000 ML IV ONE ×2 (03:30→04:30)
[2017-03-10 03:31] LABS: ALBUMIN 4.8 g/dL (3.4-5.0); DIRECT BILIRUBIN 0.7 mg/dL (0.0-0.2); TOTAL BILIRUBIN 2.9 mg/dL (0.2-1.0); TOTAL PROTEIN 8.2 g/dL (6.4-8.2)
[2017-03-10] MEDS ORDERED: KETOROLAC 15 MG/ML VIAL. ONE (04:14)
[2017-03-10] MEDS ORDERED: ASPIRIN CHEWABLE 81 MG TABLET. PO ONE (04:30)
[2017-03-10] MEDS ORDERED: KETOROLAC 15 MG/ML VIAL. IV ONE (04:30)
[2017-03-10] MEDS ORDERED: ASPIRIN 325 MG TABLET PO ONE (04:30)
--- NOTE | 2017-03-10 04:55 | PHYS DOC ---
Past Medical History Past Medical History: Hypertension, Pancreatitis, Schizophrenia, Other Additional Past Medical Histor: sepsis Past Surgical History: Other Additional Past Surgical Histo: ORAL SURGERY Additional Information: eCig Alcohol Use: Heavy Drug Use: None Adult General Chief Complaint Chief Complaint: ABDOMINAL PAIN HPI HPI 31-year-old male presenting to the emergency department with left lower quadrant abdominal pain that is sharp moderate intermittent nonradiating and associated with nausea with vomiting. He denies blood in his vomit. It is nonbilious. He denies fevers or chills. He denies chest pain or shortness of breath. Review of systems is negative for fevers chills headache numbness weakness or tingling. All other review of systems is negative unless otherwise noted in history of present illness. ED course: 31-year-old gentleman presenting to the emergency department today with left lower quadrant abdominal pain. Afebrile here in the emergency department with tachycardia. Likely secondary to dehydration. IV fluids nausea and pain medication administered. Labs sent. White blood cell count elevated. Urinalysis unremarkable. Total bilirubin elevated along with alkaline phosphatase and mild elevation in ALT and AST. Troponin elevated just above the reference range of normal. Lipase elevated. On reexamination the patient's symptoms had improved mildly. Given his lab abnormalities patient was then admitted for further evaluation workup and care including GI consultation. Patient was placed nothing by mouth and IV fluids administered. Review of Systems Review of Systems SEE ABOVE. Current Medications Current Medications Current Medications Medications (Trade) Dose Ordered Sig/Jamey Start Time Stop Time Status Last Admin Dose Admin Hydromorphone HCl (Dilaudid) 0.5 mg PRN Q30MIN PRN 03/10/17 03:00 03/10/17 09:14 DC 03/10/17 09:14 0.5 MG Ketorolac Tromethamine (Toradol) 15 mg STK-MED ONCE 03/10/17 04:14 03/10/17 04:15 DC Ondansetron HCl (Zofran Odt) 4 mg 1X ONCE 03/10/17 03:30 03/10/17 03:31 DC 03/10/17 03:08 4 MG Ondansetron HCl (Zofran) 4 mg 1X ONCE 03/10/17 03:30 03/10/17 03:31 DC 03/10/17 03:09 4 MG Sodium Chloride 1,000 ml @ 1,000 mls/hr 1X ONCE 03/10/17 03:30 03/10/17 04:29 DC 03/10/17 03:08 1,000 MLS/HR Allergies Allergies Allergies Coded Allergies Type Severity Reaction Last Updated Verified I S O L A T I O N *CONTACT* Allergy Unknown 07/31/15 Yes Penicillins Adverse Reaction Intermediate SEE COMMENT 07/30/15 Yes Physical Exam Physical Exam SEE ABOVE Constitutional: Well developed, well nourished, no acute distress, non-toxic appearance. [] HENT: Normocephalic, atraumatic, bilateral external ears normal, oropharynx moist, no oral exudates, nose normal. [] Eyes: PERRLA, EOMI, conjunctiva normal, no discharge. Neck: Normal range of motion, no tenderness, supple, no stridor. [] Cardiovascular:Heart rate regular rhythm, no murmur [] Lungs & Thorax: Bilateral breath sounds clear to auscultation [] Abdomen: Abdomen is soft and nontender. No rebound tenderness or guarding is present. Negative Drew sign. Negative McBurney's point. Skin: Warm, dry, no erythema, no rash. [] Back: No tenderness, no CVA tenderness. Extremities: No tenderness, no cyanosis, no clubbing, ROM intact, no edema. Neurologic: Alert and oriented X 3, normal motor function, normal sensory function, no focal deficits noted. Psychologic: Affect normal, judgement normal, mood normal. Current Patient Data Vital Signs Vital Signs Date Time Temp Pulse Resp B/P (MAP) Pulse Ox O2 Delivery O2 Flow Rate FiO2 03/10/17 04:08 108 20 163/104 (123) 97 Room Air 03/10/17 03:00 97.8 97.8 Lab Values Laboratory Tests Test 03/10/17 03:00 03/10/17 03:04 Urine Collection Type Unknown Urine Color [place] Urine Clarity Cloudy Urine pH 7.5 Urine Specific [place] 1.020 Urine Protein Negative mg/dL (NEG-TRACE) Urine Glucose (UA) Negative mg/dL (NEG) Urine Ketones (Stick) Trace mg/dL (NEG) Urine Blood Negative (NEG) Urine Nitrite Negative (NEG) Urine Bilirubin Negative (NEG) Urine Urobilinogen Dipstick 0.2 mg/dL (0.2 mg/dL) Urine Leukocyte Esterase Trace (NEG) Urine RBC Occ /HPF (0-2) Urine WBC 11-20 /HPF (0-4) Urine Squamous Epithelial Cells Occ /LPF Urine Amorphous Sediment Present /HPF Urine Bacteria 0 /HPF (0-FEW) Urine Hyaline Casts Few /HPF Urine Mucus Mod /LPF Urine Opiates Screen Neg (NEG) Urine Methadone Screen Neg (NEG) Urine Barbiturates Neg (NEG) Urine Phencyclidine Screen Neg (NEG) Urine Amphetamine/Methamphetamine Neg (NEG) Urine Benzodiazepines Screen Neg (NEG) Urine Cocaine Screen Neg (NEG) Urine Cannabinoids Screen Pos (NEG) Urine Ethyl Alcohol Neg (NEG) White Blood Count 17.9 x10^3/uL (4.0-11.0) H Red Blood Count 6.04 x10^6/uL (4.30-5.70) H Hemoglobin 17.6 g/dL (13.0-17.5) H Hematocrit 51.8 % (39.0-53.0) Mean Corpuscular Volume 86 fL (79-100) Mean Corpuscular Hemoglobin 29 pg (25-35) Mean Corpuscular Hemoglobin Concent 34 g/dL (31-37) Red Cell Distribution Width 14.0 % (11.5-14.5) Platelet Count 205 x10^3/uL (140-400) Neutrophils (%) (Auto) 85 % (31-73) H Lymphocytes (%) (Auto) 8 % (24-48) L Monocytes (%) (Auto) 6 % (0-9) Eosinophils (%) (Auto) 0 % (0-3) Basophils (%) (Auto) 0 % (0-3) Neutrophils # (Auto) 15.2 x10^3uL (1.8-7.7) H Lymphocytes # (Auto) 1.5 x10^3/uL (1.0-4.8) Monocytes # (Auto) 1.1 x10^3/uL (0.0-1.1) Eosinophils # (Auto) 0.0 x10^3/uL (0.0-0.7) Basophils # (Auto) 0.1 x10^3/uL (0.0-0.2) Segmented Neutrophils % 86 % (35-66) H Band Neutrophils % 1 % (0-9) Lymphocytes % 11 % (24-48) L Monocytes % 2 % (0-10) Platelet Estimate Adequate (ADEQUATE) Sodium Level 135 mmol/L (136-145) L Potassium Level 3.3 mmol/L (3.5-5.1) L Chloride Level 88 mmol/L (98-107) L Carbon Dioxide Level 28 mmol/L (21-32) Anion Gap 19 (6-14) H Blood Urea Nitrogen 8 mg/dL (8-26) Creatinine 1.3 mg/dL (0.7-1.3) Estimated GFR (Cockcroft-Gault) 64.8 Glucose Level 219 mg/dL (70-99) H Calcium Level 11.2 mg/dL (8.5-10.1) H Magnesium Level 1.7 mg/dL (1.8-2.4) L Total Bilirubin 2.9 mg/dL (0.2-1.0) H Direct Bilirubin 0.7 mg/dL (0.0-0.2) H Aspartate Amino Transferase (AST) 89 U/L (15-37) H Alanine Aminotransferase (ALT) 122 U/L (16-63) H Alkaline Phosphatase 125 U/L (46-116) H Troponin I Quantitative 0.074 ng/mL (0.000-0.055) Total Protein 8.2 g/dL (6.4-8.2) Albumin 4.8 g/dL (3.4-5.0) Lipase 941 U/L (73-393) H Ethyl Alcohol Level < 10 mg/dL (0-10) Laboratory Tests 03/10/17 03:04 Laboratory Tests 03/10/17 03:04 EKG EKG [] Radiology/Procedures Radiology/Procedures [] Course & Med Decision Making Course & Med Decision Making Pertinent Labs and Imaging studies reviewed. (See chart for details) [] Dragon Disclaimer Dragon Disclaimer This electronic medical record was generated, in whole or in part, using a voice recognition dictation system. Departure Departure Impression: Primary Impression: Abdominal pain Additional Impression: Pancreatitis Disposition: 09 ADMITTED INPATIENT Admitting Physician: Agustin Rosario Condition: STABLE Referrals: NO PCP (PCP) Problem Qualifiers CHRIS HUERTA MD Mar 10, 2017 04:55
[2017-03-10 05:17] LABS: PLT ESTIMATE ADEQUATE (ADEQUATE)
--- NOTE | 2017-03-10 05:44 | RAD ---
INDICATION: epigastric pain abd pain COMPARISON: April 07, 2016 TECHNIQUE: Grayscale and color ultrasound images obtained through the abdomen. FINDINGS: Aorta/IVC: Poorly visualized Pancreas: Obscured. Liver: Echogenic. Gallbladder: Somewhat distended with fold in lumen. No definite stones seen. Common Bile Duct: 5 mm Right Kidney: No hydronephrosis. IMPRESSION: Liver is echogenic. Nonspecific but can be seen with fatty infiltration. The gallbladder is distended measuring up to 10 cm but no definite gallstones are seen. Electronically signed by: Pradeep Goldman MD (03/10/2017 5:40 AM) [facility]
[2017-03-10] MEDS: fentaNYL PF VIAL 100 MCG/2 ML VIAL IV PRN ×3 (06:23→11:19)
[2017-03-10] MEDS ORDERED: BENZ1TAB5 PO (06:49)
[2017-03-10] MEDS ORDERED: TRAZ150T49 PO (06:49)
--- NOTE | 2017-03-10 09:28 | PDOC2 ---
GI CONSULT Reason For Consult: Pancreatitis, transaminitis HPI: HPI: 31 y/o male admitted through the ER. LLQ and upper back pain began yesterday, similar to previous episodes of pancreatitis which have been attributed to alcohol. He continues to drink heavily, 10-12 beers 3-4 times weekly. He was drinking on this occasion before pain began. Associated w/ n/v. No hematemesis , hematochezia, melena. No diarrhea or constipation. Daily acid reflux, takes Tums. Occasional NSAID (ibuprofen) use - not daily. No previous EGD or colonoscopy. Significant labs: WBC 17.9, bili 2.9, AST 89, ALT 122, Alk Phos 125, lipase 941 , troponin 0.074. Abd US showed echogenic liver w/ distended gallbladder (w/o stones). CT A/P on 02/08/17 (for slightly different symptoms, normal lipase at that time) was unrevealing. Hepatitis serology was negative in 2014. Has been kept NPO, cardiology has been asked to see. PMH: PMH: HTN, alcoholic pancreatitis, schizophrenia, anxiety/depression, suicide attempt , previous sepsis w/ seizure, HPV, rib fractures FH: Family History: No pertinent hx (denies GI cancers, pancreatitis) Social History: Smoke: <1 pack per day (e cigarette) ALCOHOL: heavy (10-12 beers 3-4 times weekly) Drugs: Marijuana ROS: GEN: Denies fevers, chills, sweats HEENT: Denies blurred vision, sore throat CV: Denies chest pain RESP: Denies shortness of air, cough GI: Per HPI : Denies hematuria, dysuria ENDO: Denies weight changes NEURO: Denies confusion, dizziness MSK: Denies weakness, joint pain/swelling SKIN: Denies jaundice, pruritus Vitals: Vitals: Vital Signs Date Time Temp Pulse Resp B/P (MAP) Pulse Ox O2 Delivery O2 Flow Rate FiO2 03/10/17 08:15 18 03/10/17 07:45 97 Room Air 03/10/17 07:00 97.7 102 144/104 (117) 97.7 Labs: Labs: Laboratory Tests Test 03/10/17 03:00 03/10/17 03:04 Urine Collection Type Unknown Urine Color [place] Urine Clarity Cloudy Urine pH 7.5 Urine Specific [place] 1.020 Urine Protein Negative mg/dL (NEG-TRACE) Urine Glucose (UA) Negative mg/dL (NEG) Urine Ketones (Stick) Trace mg/dL (NEG) Urine Blood Negative (NEG) Urine Nitrite Negative (NEG) Urine Bilirubin Negative (NEG) Urine Urobilinogen Dipstick 0.2 mg/dL (0.2 mg/dL) Urine Leukocyte Esterase Trace (NEG) Urine RBC Occ /HPF (0-2) Urine WBC 11-20 /HPF (0-4) Urine Squamous Epithelial Cells Occ /LPF Urine Amorphous Sediment Present /HPF Urine Bacteria 0 /HPF (0-FEW) Urine Hyaline Casts Few /HPF Urine Mucus Mod /LPF Urine Opiates Screen Neg (NEG) Urine Methadone Screen Neg (NEG) Urine Barbiturates Neg (NEG) Urine Phencyclidine Screen Neg (NEG) Urine Amphetamine/Methamphetamine Neg (NEG) Urine Benzodiazepines Screen Neg (NEG) Urine Cocaine Screen Neg (NEG) Urine Cannabinoids Screen Pos (NEG) Urine Ethyl Alcohol Neg (NEG) White Blood Count 17.9 x10^3/uL (4.0-11.0) Red Blood Count 6.04 x10^6/uL (4.30-5.70) Hemoglobin 17.6 g/dL (13.0-17.5) Hematocrit 51.8 % (39.0-53.0) Mean Corpuscular Volume 86 fL (79-100) Mean Corpuscular Hemoglobin 29 pg (25-35) Mean Corpuscular Hemoglobin Concent 34 g/dL (31-37) Red Cell Distribution Width 14.0 % (11.5-14.5) Platelet Count 205 x10^3/uL (140-400) Neutrophils (%) (Auto) 85 % (31-73) Lymphocytes (%) (Auto) 8 % (24-48) Monocytes (%) (Auto) 6 % (0-9) Eosinophils (%) (Auto) 0 % (0-3) Basophils (%) (Auto) 0 % (0-3) Neutrophils # (Auto) 15.2 x10^3uL (1.8-7.7) Lymphocytes # (Auto) 1.5 x10^3/uL (1.0-4.8) Monocytes # (Auto) 1.1 x10^3/uL (0.0-1.1) Eosinophils # (Auto) 0.0 x10^3/uL (0.0-0.7) Basophils # (Auto) 0.1 x10^3/uL (0.0-0.2) Segmented Neutrophils % 86 % (35-66) Band Neutrophils % 1 % (0-9) Lymphocytes % 11 % (24-48) Monocytes % 2 % (0-10) Platelet Estimate Adequate (ADEQUATE) Sodium Level 135 mmol/L (136-145) Potassium Level 3.3 mmol/L (3.5-5.1) Chloride Level 88 mmol/L (98-107) Carbon Dioxide Level 28 mmol/L (21-32) Anion Gap 19 (6-14) Blood Urea Nitrogen 8 mg/dL (8-26) Creatinine 1.3 mg/dL (0.7-1.3) Estimated GFR (Cockcroft-Gault) 64.8 Glucose Level 219 mg/dL (70-99) Calcium Level 11.2 mg/dL (8.5-10.1) Total Bilirubin 2.9 mg/dL (0.2-1.0) Direct Bilirubin 0.7 mg/dL (0.0-0.2) Aspartate Amino Transf (AST/SGOT) 89 U/L (15-37) Alanine Aminotransferase (ALT/SGPT) 122 U/L (16-63) Alkaline Phosphatase 125 U/L (46-116) Troponin I Quantitative 0.074 ng/mL (0.000-0.055) Total Protein 8.2 g/dL (6.4-8.2) Albumin 4.8 g/dL (3.4-5.0) Lipase 941 U/L (73-393) Ethyl Alcohol Level < 10 mg/dL (0-10) Allergies: Coded Allergies: I S O L A T I O N *CONTACT* (Verified Allergy, Unknown, 07/31/15) mrsa + Penicillins (Verified Adverse Reaction, Intermediate, SEE COMMENT, ) Discussed allergies with Dr Sullivan: patient nor any family member has ever had Penicillin per discussion with pt's father. Pt tolerated Cefepime. Medications: Current Medications Medications (Trade) Dose Ordered Sig/Jamey Route PRN Reason Start Time Stop Time Status Last Admin Dose Admin Sodium Chloride 500 ml @ 500 mls/hr 1X ONCE IV 03/10/17 03:00 03/10/17 03:59 DC 03/10/17 04:00 Sodium Chloride 1,000 ml @ 1,000 mls/hr 1X ONCE IV 03/10/17 03:30 03/10/17 04:29 DC 03/10/17 03:08 Ondansetron HCl (Zofran Odt) 4 mg 1X ONCE PO 03/10/17 03:30 03/10/17 03:31 DC 03/10/17 03:08 Hydromorphone HCl (Dilaudid) 0.5 mg PRN Q30MIN PRN IV SEVERE PAIN 03/10/17 03:00 03/10/17 03:45 Ondansetron HCl (Zofran) 4 mg 1X ONCE IV 03/10/17 03:30 03/10/17 03:31 DC 03/10/17 03:09 Ketorolac Tromethamine (Toradol) 15 mg 1X ONCE IV 03/10/17 04:30 03/10/17 04:31 DC 03/10/17 04:20 Sodium Chloride 1,000 ml @ 100 mls/hr 1X ONCE IV 03/10/17 04:30 03/10/17 14:29 03/10/17 07:45 Aspirin (Children'S Aspirin) 324 mg 1X ONCE PO 03/10/17 04:30 03/10/17 04:31 DC 03/10/17 04:21 Fentanyl Citrate (Fentanyl 2ml Vial) 50 mcg PRN Q1HR PRN IV SEVERE PAIN 03/10/17 04:30 03/11/17 04:29 03/10/17 07:45 Imaging: Imaging: RUQ US 03/10/17 IMPRESSION: Liver is echogenic. Nonspecific but can be seen with fatty infiltration. The gallbladder is distended measuring up to 10 cm but no definite gallstones are seen. CT A/P 02/08/17 IMPRESSION: No acute finding seen in the abdomen or pelvis, unremarkable pancreas. PE: GEN: NAD HEENT: Atraumatic, PERRL LUNGS: clear anteriorly HEART: tachycardic ABD: BS+, LLQ tenderness EXTREMITY: No edema SKIN: No rashes, no jaundice NEURO/PSYCH: A & O 3 A/P: A/P: Abd pain w/ n/v, alcohol abuse, elevated lipase and LFTs, h/o alcoholic pancreatitis -pain (LLQ/back) recurred yesterday, likely precipitated by drinking alcohol -reports 5-6 previous episodes of pancreatitis -distended gallbladder on US, no stones, last CT in 01/2017 w/ unremarkable pancreas -note Hepatitis panel negative in 2014 GERD -daily symptoms, takes Tums only -no previous EGD -occasional NSAID use Tachycardia, elevated troponin -cardiology asked to see Leukocytosis -- Continue medical therapy/NPO for what seems to be recurrent alcoholic pancreatitis. Consider PIPIDA scan at some point. Will add H2 maria eugenia (IV PPI on backorder/unavailable) considering daily GERD symptoms. Await cardiology eval. Abstinence from alcohol encouraged. JIMMY CLAY Mar 10, 2017 09:28
--- NOTE | 2017-03-10 10:49 | EKG ---
[facility] [address] [place] [address] Test Date: 2017-03-10 Test Time: 04:09:44 Pat Name: VICENTE MONTGOMERY Department: Room: 211 1 Gender: M Senior Electrical Controls Engineer: : 1985 Requested By: SHIRLEY NAPOLES Order Number: [id number] Reading MD: Winsome Reid Measurements Intervals [place] Rate: 109 P: 69 CA: 168 QRS: 51 QRSD: 86 T: 39 QT: 378 QTc: 511 Interpretive Statements SINUS TACHYCARDIA QRS(T) CONTOUR ABNORMALITY CONSIDER ANTEROSEPTAL MYOCARDIAL DAMAGE Electronically Signed On 03-13-2017 21:18:38 CDT by Winsome Reid
--- NOTE | 2017-03-10 11:57 | PDOC2 ---
CARDIAC CONSULT DATE OF CONSULT Date of Consult DATE: 03/10/17 TIME: 11:38 REASON FOR CONSULT Reason for Consult: Elevated troponin REFERRING PHYSICIAN Referring Physician: Dr. Serrano SOURCE Source: Chart review, Patient HISTORY OF PRESENT ILLNESS HISTORY OF PRESENT ILLNESS This is a 31 yo male, with a history of HTN, pancreatitis, and schizophrenia, who presented with complaints of abdominal pain and nausea and vomiting. Troponin level noted at 0.074, which prompted this consult. Denies any chest pain, palpitations, dizziness, SOA, or diaphoresis. H/o HTN previously on Atenolol, but has not taken for "some time." PAST MEDICAL HISTORY Cardiovascular: HTN Pulmonary: No pertinent hx GI: GERD, Other (pancreatitis ) Psych: Anxiety, Addictions (ETOH), Depression, Schizophrenia FAMILY HISTORY Family History: Hypertension SOCIAL HISTORY Smoke: <1 pack per day (e cigarette) ALCOHOL: heavy (12 beers every other day) Drugs: Marijuana Lives: Alone CURRENT MEDICATIONS CURRENT MEDICATIONS Current Medications Medications (Trade) Dose Ordered Sig/Jamey Route PRN Reason Start Time Stop Time Status Last Admin Dose Admin Sodium Chloride 500 ml @ 500 mls/hr 1X ONCE IV 03/10/17 03:00 03/10/17 03:59 DC 03/10/17 04:00 Sodium Chloride 1,000 ml @ 1,000 mls/hr 1X ONCE IV 03/10/17 03:30 03/10/17 04:29 DC 03/10/17 03:08 Ondansetron HCl (Zofran Odt) 4 mg 1X ONCE PO 03/10/17 03:30 03/10/17 03:31 DC 03/10/17 03:08 Hydromorphone HCl (Dilaudid) 0.5 mg PRN Q30MIN PRN IV SEVERE PAIN 03/10/17 03:00 03/10/17 09:14 DC 03/10/17 09:14 Ondansetron HCl (Zofran) 4 mg 1X ONCE IV 03/10/17 03:30 03/10/17 03:31 DC 03/10/17 03:09 Ketorolac Tromethamine (Toradol) 15 mg 1X ONCE IV 03/10/17 04:30 03/10/17 04:31 DC 03/10/17 04:20 Sodium Chloride 1,000 ml @ 100 mls/hr 1X ONCE IV 03/10/17 04:30 03/10/17 14:29 03/10/17 07:45 Aspirin (Children'S Aspirin) 324 mg 1X ONCE PO 03/10/17 04:30 03/10/17 04:31 DC 03/10/17 04:21 Fentanyl Citrate (Fentanyl 2ml Vial) 50 mcg PRN Q1HR PRN IV SEVERE PAIN 03/10/17 04:30 03/11/17 04:29 03/10/17 11:19 ALLERGIES ALLERGIES: Coded Allergies: I S O L A T I O N *CONTACT* (Verified Allergy, Unknown, 07/31/15) mrsa + Penicillins (Verified Adverse Reaction, Intermediate, SEE COMMENT, ) Discussed allergies with Dr Sullivan: patient nor any family member has ever had Penicillin per discussion with pt's father. Pt tolerated Cefepime. ROS Review of System 14 point ROS conducted with pertinent positives noted above in HPI. PHYSICAL EXAM General: Alert, Oriented X3, Cooperative, No acute distress HEENT: Atraumatic, Mucous membr. moist/pink Lungs: Clear to auscultation, Normal air movement Heart: Regular rate, Normal S1, Normal S2 Abdomen: Soft, Other (LLQ tenderness ) Extremities: No edema, Normal pulses Skin: No breakdown, No significant lesion Neuro: Normal speech, Sensation intact Psych/Mental Status: Mental status NL, Other (flat affect ) MUSCULOSKELETAL: No joint tenderness VITALS VITALS Vital Signs Date Time Temp Pulse Resp B/P (MAP) Pulse Ox O2 Delivery O2 Flow Rate FiO2 03/10/17 11:19 18 97 Room Air 03/10/17 07:00 97.7 102 144/104 (117) 97.7 LABS Lab: Laboratory Tests Test 03/10/17 03:00 03/10/17 03:04 Urine Collection Type Unknown Urine Color [place]lee Urine Clarity Cloudy Urine pH 7.5 Urine Specific [place] 1.020 Urine Protein Negative mg/dL (NEG-TRACE) Urine Glucose (UA) Negative mg/dL (NEG) Urine Ketones (Stick) Trace mg/dL (NEG) Urine Blood Negative (NEG) Urine Nitrite Negative (NEG) Urine Bilirubin Negative (NEG) Urine Urobilinogen Dipstick 0.2 mg/dL (0.2 mg/dL) Urine Leukocyte Esterase Trace (NEG) Urine RBC Occ /HPF (0-2) Urine WBC 11-20 /HPF (0-4) Urine Squamous Epithelial Cells Occ /LPF Urine Amorphous Sediment Present /HPF Urine Bacteria 0 /HPF (0-FEW) Urine Hyaline Casts Few /HPF Urine Mucus Mod /LPF Urine Opiates Screen Neg (NEG) Urine Methadone Screen Neg (NEG) Urine Barbiturates Neg (NEG) Urine Phencyclidine Screen Neg (NEG) Urine Amphetamine/Methamphetamine Neg (NEG) Urine Benzodiazepines Screen Neg (NEG) Urine Cocaine Screen Neg (NEG) Urine Cannabinoids Screen Pos (NEG) Urine Ethyl Alcohol Neg (NEG) White Blood Count 17.9 x10^3/uL (4.0-11.0) Red Blood Count 6.04 x10^6/uL (4.30-5.70) Hemoglobin 17.6 g/dL (13.0-17.5) Hematocrit 51.8 % (39.0-53.0) Mean Corpuscular Volume 86 fL (79-100) Mean Corpuscular Hemoglobin 29 pg (25-35) Mean Corpuscular Hemoglobin Concent 34 g/dL (31-37) Red Cell Distribution Width 14.0 % (11.5-14.5) Platelet Count 205 x10^3/uL (140-400) Neutrophils (%) (Auto) 85 % (31-73) Lymphocytes (%) (Auto) 8 % (24-48) Monocytes (%) (Auto) 6 % (0-9) Eosinophils (%) (Auto) 0 % (0-3) Basophils (%) (Auto) 0 % (0-3) Neutrophils # (Auto) 15.2 x10^3uL (1.8-7.7) Lymphocytes # (Auto) 1.5 x10^3/uL (1.0-4.8) Monocytes # (Auto) 1.1 x10^3/uL (0.0-1.1) Eosinophils # (Auto) 0.0 x10^3/uL (0.0-0.7) Basophils # (Auto) 0.1 x10^3/uL (0.0-0.2) Segmented Neutrophils % 86 % (35-66) Band Neutrophils % 1 % (0-9) Lymphocytes % 11 % (24-48) Monocytes % 2 % (0-10) Platelet Estimate Adequate (ADEQUATE) Sodium Level 135 mmol/L (136-145) Potassium Level 3.3 mmol/L (3.5-5.1) Chloride Level 88 mmol/L (98-107) Carbon Dioxide Level 28 mmol/L (21-32) Anion Gap 19 (6-14) Blood Urea Nitrogen 8 mg/dL (8-26) Creatinine 1.3 mg/dL (0.7-1.3) Estimated GFR (Cockcroft-Gault) 64.8 Glucose Level 219 mg/dL (70-99) Calcium Level 11.2 mg/dL (8.5-10.1) Total Bilirubin 2.9 mg/dL (0.2-1.0) Direct Bilirubin 0.7 mg/dL (0.0-0.2) Aspartate Amino Transf (AST/SGOT) 89 U/L (15-37) Alanine Aminotransferase (ALT/SGPT) 122 U/L (16-63) Alkaline Phosphatase 125 U/L (46-116) Troponin I Quantitative 0.074 ng/mL (0.000-0.055) Total Protein 8.2 g/dL (6.4-8.2) Albumin 4.8 g/dL (3.4-5.0) Lipase 941 U/L (73-393) Ethyl Alcohol Level < 10 mg/dL (0-10) ASSESSMENT/PLAN ASSESSMENT/PLAN 1. Mildly elevated troponin 2. Hypertension; remains mildly elevated 3. Tachycardia; likely pain-induced 4. Pancreatitis: per GI. 5. Hypokalemia 6. Transaminitis 7. ETOH 8. Schizophrenia/depression/anxiety Recommendations Obtain 2nd troponin level Echo to assess LV function. Suspect mild troponin elevation is demand ischemia acute pancreatitis. Replace K, check Mg Monitor BP trends. If remains elevated when pain better controlled/resolved, would recommend addition of ACEi. Supportive care Problems: BRANDO MORALES APRN Mar 10, 2017 11:57
--- NOTE | 2017-03-10 12:05 | ACF ---
CHRISTEN VALLECILLO 03/10/17 1205: Admit Criteria Forms Admit Criteria Forms Admit Criteria Forms ABDOMINAL PAIN Clinical Indications for Admission to Inpatient Care (Place 'X' for any and all applicable criteria): Admission is indicated for ANY ONE of the following(1)(2)(3)(4)(5): [X ]I. Inpatient admission required rather than observation care (Also use Abdominal Pain: Observation Care, as appropriate) because of ANY ONE of the following: [ ]a) Severe pain requiring acute inpatient management [X]b) Identification of etiology/finding that requires inpatient care (eg, aortic dissection, free air) [ ]c) Absent bowel sounds with complete ileus(6) [ ]d) Suspected toxic megacolon [ ]e) Severe electrolyte abnormalities requiring inpatient care [ ]f) High fever or infection requiring inpatient admission as indicated by ANY ONE of following(7)(8): [ ] i) Appropriate outpatient or observational care antimicrobial treatment unavailable, not effective, or not feasible [ ] ii) Documented bacteremia [ ] iii) Temperature > 104.9 degrees F (oral) [ ] iv) T >103.1 F (oral) or < 96.8 F(rectal) that does not respond to all emergency treatment measures [ ]g) Signs of intestinal obstruction [B] [ ]h) Hemodynamic instability [ ]i) IV fluid to replace significant ongoing losses (greater than 3 L/m2 per day) (12)(13) [ ]j) Percutaneous or open drainage (eg, abscess, biliary tract ) procedures [ ]k) Parenteral nutrition regimen that must be implemented on inpatient basis [ ]l) Other condition,treatment or monitoring requiring inpatient admission. [ ]II. Peritoneal signs present [ ]III. Surgery needed that cannot be performed on an ambulatory basis. [ ]IV. Evaluation requires patient to not eat or drink for extended period ( eg, more than 24 hours). [ ]V. Contraindications and/or Inappropriate clinical situations for Observational Care in patients with abdominal pain, when ANY ONE of the following is required: [ ]a) Thorough evaluation is required to prevent catastrophic events due to delays in diagnosing (e.g.Mesenteric ischemia) 1,3 [ ]b) Patient with severe pathology or with chronic symptoms unlikely to improve in the ED stay (3) [ ]. General contraindications and/or Inappropriate clinical situations for Observational Care in patients with abdominal pain, when ANY ONE of the following is required: [ ]a) Prediction of prolongation of LOS based on ANY ONE of the following may be considered as a contraindication for observational care 2, 3, 4, 5, 6, 7, 8, 9, 10, 11 [ ]i) Age > 65 yrs. [ ]ii) Patient arriving by ambulance [ ]iii) Patient with high acuity [ ]iv) Patient requiring vital sign monitoring [ ]v) Patient on IV medication [ ]b) Systolic blood pressures 180mmHg 3,12 [ ]c) Patient with altered mental status including delirium and other alteration of consciousness, (3) [ ]d) Patient whose discharge disposition will be to a retirement home or rehabilitation home should not be managed in Emergency Department Observation Unit. CMS rule requires 3 days hospital stay before such placement.3,13 [ ]e) Patient with failure to thrive due to broad array of etiologies 3,16,17 [ ]f) Inability to ambulate 3,14 Extended stay beyond goal length of stay may be needed for(2)(3): [ ]a) Persistent abdominal pain with suspected intra-abdominal process [ ]b) Diagnosed condition requiring continued stay (e.g., pancreatitis, complicated diverticulitis) [ ]c) Surgery (e.g., colectomy) The original [employer] content created by [employer] has been revised. The portions of the content which have been revised are identified through the use of italic text or in bold, and [facility] [employer] has neither reviewed nor approved the modified material.All other unmodified content is copyright [facility]. Please see references footnoted in the original [employer] edition 2016 CHRIS HUERTA MD 03/11/17 0358: Admit Criteria Forms Admit Criteria Forms Admit Criteria Forms I am unable to edit this form. This patient was placed as observation status. This is the only avenue in our electronic medical record for me to document this. All of the above information is not my professional medical opinion. CHRISTEN VALLECILLO Mar 10, 2017 12:05 CHRIS HUERTA MD Mar 11, 2017 03:58
--- NOTE | 2017-03-10 12:05 | PDOC1 ---
History and Physical Date of Admission Date of Admission DATE: 03/10/17 TIME: 09:00 Identification/Chief Complaint Chief Complaint Pancreatitis Problems: Source Source: Patient History of Present Illness History of Present Illness Mr Reyes is 31 y/o man with chronic alcohol abuse who presented to the ER with LLQ and upper back pain began yesterday. He relates that this was similar to previous episodes of pancreatitis, which have been attributed to alcohol. He continues to drink heavily, 10-12 beers 3-4 times weekly. He endorses N/V without hematemesis, hematochezia, melena. Takes TUMS for daily GERD symptoms. No diarrhea or constipation. In [facility] ER, he was found with elevated lipase c/w pancreatitis Past Medical History Cardiovascular: HTN GI: GERD, Other (pancreatitis, recurrent) Psych: Anxiety, Addictions (ETOH), Depression, Schizophrenia Past Surgical History Past Surgical History: No pertinent history Family History Family History: Hypertension Social History Smoke: <1 pack per day (e cigarette) ALCOHOL: heavy (12 beers every other day) Drugs: Marijuana Current Problem List Problem List Problems Medical Problems: (1) Abdominal pain Status: Acute (2) Pancreatitis Status: Acute Problems: Current Medications Current Medications Active Scripts Active Reported Trazodone Hcl 150 Mg Tablet 1 Tab PO QHS Benztropine Mesylate 1 Mg Tablet 1 Tab PO BID Haloperidol 5 Mg Tablet 7.5 Mg PO BID Hydroxyzine Hcl 50 Mg Tablet 200 Mg PO HS Trazodone Hcl 150 Mg Tablet 150 Mg PO HS Allergies Allergies: Coded Allergies: I S O L A T I O N *CONTACT* (Verified Allergy, Unknown, 07/31/15) mrsa + Penicillins (Verified Adverse Reaction, Intermediate, SEE COMMENT, ) Discussed allergies with Dr Sullivan: patient nor any family member has ever had Penicillin per discussion with pt's father. Pt tolerated Cefepime. ROS General: YES: Fatigue, Malaise, No: Chills, Night Sweats PSYCHOLOGICAL ROS: YES: Behavioral Disorder Eyes: Yes Blurry vision HEENT: No: Heacaches ALLERGY AND IMMUNOLOGY: No: Nasal Congestion Hematological and Lymphatic: No: Bleeding Problems Respiratory: No: Cough, Hemoptysis Cardiovascular: No Chest Pain, No Palpitations Gastrointestinal: Yes Nausea, Yes Abdominal Pain, No Vomiting, No Diarrhea, No Constipation Genitourinary: No Dysuria Musculoskeletal: Yes Gait Disturbance Neurological: No Confusion Skin: Yes Dry Skin Physical Exam General: Alert, Oriented X3, Cooperative, No acute distress HEENT: Atraumatic, EOMI Lungs: Clear to auscultation Heart: RRR Abdomen: Normal bowel sounds, Soft, Other (TTP LLQ) Extremities: No clubbing, No edema Skin: No rashes Neuro: Normal gait, Normal speech Vitals Vitals Vital Signs Date Time Temp Pulse Resp B/P (MAP) Pulse Ox O2 Delivery O2 Flow Rate FiO2 03/10/17 11:19 18 97 Room Air 03/10/17 11:00 98.0 107 153/108 (123) 98.0 Labs Labs Laboratory Tests Test 03/10/17 03:00 03/10/17 03:04 Urine Collection Type Unknown Urine Color [place] Urine Clarity Cloudy Urine pH 7.5 Urine Specific [place] 1.020 Urine Protein Negative mg/dL (NEG-TRACE) Urine Glucose (UA) Negative mg/dL (NEG) Urine Ketones (Stick) Trace mg/dL (NEG) Urine Blood Negative (NEG) Urine Nitrite Negative (NEG) Urine Bilirubin Negative (NEG) Urine Urobilinogen Dipstick 0.2 mg/dL (0.2 mg/dL) Urine Leukocyte Esterase Trace (NEG) Urine RBC Occ /HPF (0-2) Urine WBC 11-20 /HPF (0-4) Urine Squamous Epithelial Cells Occ /LPF Urine Amorphous Sediment Present /HPF Urine Bacteria 0 /HPF (0-FEW) Urine Hyaline Casts Few /HPF Urine Mucus Mod /LPF Urine Opiates Screen Neg (NEG) Urine Methadone Screen Neg (NEG) Urine Barbiturates Neg (NEG) Urine Phencyclidine Screen Neg (NEG) Urine Amphetamine/Methamphetamine Neg (NEG) Urine Benzodiazepines Screen Neg (NEG) Urine Cocaine Screen Neg (NEG) Urine Cannabinoids Screen Pos (NEG) Urine Ethyl Alcohol Neg (NEG) White Blood Count 17.9 x10^3/uL (4.0-11.0) Red Blood Count 6.04 x10^6/uL (4.30-5.70) Hemoglobin 17.6 g/dL (13.0-17.5) Hematocrit 51.8 % (39.0-53.0) Mean Corpuscular Volume 86 fL (79-100) Mean Corpuscular Hemoglobin 29 pg (25-35) Mean Corpuscular Hemoglobin Concent 34 g/dL (31-37) Red Cell Distribution Width 14.0 % (11.5-14.5) Platelet Count 205 x10^3/uL (140-400) Neutrophils (%) (Auto) 85 % (31-73) Lymphocytes (%) (Auto) 8 % (24-48) Monocytes (%) (Auto) 6 % (0-9) Eosinophils (%) (Auto) 0 % (0-3) Basophils (%) (Auto) 0 % (0-3) Neutrophils # (Auto) 15.2 x10^3uL (1.8-7.7) Lymphocytes # (Auto) 1.5 x10^3/uL (1.0-4.8) Monocytes # (Auto) 1.1 x10^3/uL (0.0-1.1) Eosinophils # (Auto) 0.0 x10^3/uL (0.0-0.7) Basophils # (Auto) 0.1 x10^3/uL (0.0-0.2) Segmented Neutrophils % 86 % (35-66) Band Neutrophils % 1 % (0-9) Lymphocytes % 11 % (24-48) Monocytes % 2 % (0-10) Platelet Estimate Adequate (ADEQUATE) Sodium Level 135 mmol/L (136-145) Potassium Level 3.3 mmol/L (3.5-5.1) Chloride Level 88 mmol/L (98-107) Carbon Dioxide Level 28 mmol/L (21-32) Anion Gap 19 (6-14) Blood Urea Nitrogen 8 mg/dL (8-26) Creatinine 1.3 mg/dL (0.7-1.3) Estimated GFR (Cockcroft-Gault) 64.8 Glucose Level 219 mg/dL (70-99) Calcium Level 11.2 mg/dL (8.5-10.1) Total Bilirubin 2.9 mg/dL (0.2-1.0) Direct Bilirubin 0.7 mg/dL (0.0-0.2) Aspartate Amino Transf (AST/SGOT) 89 U/L (15-37) Alanine Aminotransferase (ALT/SGPT) 122 U/L (16-63) Alkaline Phosphatase 125 U/L (46-116) Troponin I Quantitative 0.074 ng/mL (0.000-0.055) Total Protein 8.2 g/dL (6.4-8.2) Albumin 4.8 g/dL (3.4-5.0) Lipase 941 U/L (73-393) Ethyl Alcohol Level < 10 mg/dL (0-10) Laboratory Tests Test 03/10/17 03:00 03/10/17 03:04 Urine Collection Type Unknown Urine Color [place] Urine Clarity Cloudy Urine pH 7.5 Urine Specific [place] 1.020 Urine Protein Negative mg/dL (NEG-TRACE) Urine Glucose (UA) Negative mg/dL (NEG) Urine Ketones (Stick) Trace mg/dL (NEG) Urine Blood Negative (NEG) Urine Nitrite Negative (NEG) Urine Bilirubin Negative (NEG) Urine Urobilinogen Dipstick 0.2 mg/dL (0.2 mg/dL) Urine Leukocyte Esterase Trace (NEG) Urine RBC Occ /HPF (0-2) Urine WBC 11-20 /HPF (0-4) Urine Squamous Epithelial Cells Occ /LPF Urine Amorphous Sediment Present /HPF Urine Bacteria 0 /HPF (0-FEW) Urine Hyaline Casts Few /HPF Urine Mucus Mod /LPF Urine Opiates Screen Neg (NEG) Urine Methadone Screen Neg (NEG) Urine Barbiturates Neg (NEG) Urine Phencyclidine Screen Neg (NEG) Urine Amphetamine/Methamphetamine Neg (NEG) Urine Benzodiazepines Screen Neg (NEG) Urine Cocaine Screen Neg (NEG) Urine Cannabinoids Screen Pos (NEG) Urine Ethyl Alcohol Neg (NEG) White Blood Count 17.9 x10^3/uL (4.0-11.0) Red Blood Count 6.04 x10^6/uL (4.30-5.70) Hemoglobin 17.6 g/dL (13.0-17.5) Hematocrit 51.8 % (39.0-53.0) Mean Corpuscular Volume 86 fL (79-100) Mean Corpuscular Hemoglobin 29 pg (25-35) Mean Corpuscular Hemoglobin Concent 34 g/dL (31-37) Red Cell Distribution Width 14.0 % (11.5-14.5) Platelet Count 205 x10^3/uL (140-400) Neutrophils (%) (Auto) 85 % (31-73) Lymphocytes (%) (Auto) 8 % (24-48) Monocytes (%) (Auto) 6 % (0-9) Eosinophils (%) (Auto) 0 % (0-3) Basophils (%) (Auto) 0 % (0-3) Neutrophils # (Auto) 15.2 x10^3uL (1.8-7.7) Lymphocytes # (Auto) 1.5 x10^3/uL (1.0-4.8) Monocytes # (Auto) 1.1 x10^3/uL (0.0-1.1) Eosinophils # (Auto) 0.0 x10^3/uL (0.0-0.7) Basophils # (Auto) 0.1 x10^3/uL (0.0-0.2) Segmented Neutrophils % 86 % (35-66) Band Neutrophils % 1 % (0-9) Lymphocytes % 11 % (24-48) Monocytes % 2 % (0-10) Platelet Estimate Adequate (ADEQUATE) Sodium Level 135 mmol/L (136-145) Potassium Level 3.3 mmol/L (3.5-5.1) Chloride Level 88 mmol/L (98-107) Carbon Dioxide Level 28 mmol/L (21-32) Anion Gap 19 (6-14) Blood Urea Nitrogen 8 mg/dL (8-26) Creatinine 1.3 mg/dL (0.7-1.3) Estimated GFR (Cockcroft-Gault) 64.8 Glucose Level 219 mg/dL (70-99) Calcium Level 11.2 mg/dL (8.5-10.1) Total Bilirubin 2.9 mg/dL (0.2-1.0) Direct Bilirubin 0.7 mg/dL (0.0-0.2) Aspartate Amino Transf (AST/SGOT) 89 U/L (15-37) Alanine Aminotransferase (ALT/SGPT) 122 U/L (16-63) Alkaline Phosphatase 125 U/L (46-116) Troponin I Quantitative 0.074 ng/mL (0.000-0.055) Total Protein 8.2 g/dL (6.4-8.2) Albumin 4.8 g/dL (3.4-5.0) Lipase 941 U/L (73-393) Ethyl Alcohol Level < 10 mg/dL (0-10) VTE Prophylaxis Ordered VTE Prophylaxis Devices: Yes VTE Pharmacological Prophylaxi: Yes Assessment/Plan Assessment/Plan Mr Reyes is a 31 y/o alcoholic with recurrent pancreatitis. He has been admitted for further treatment. He is on NPO status (save for psych meds), receiving IV fluids. lipase and LFTs will be monitored. While NPO, he has dilaudid assailable for pain control. He is walking around on the floor without any impediment. suspect his request for pain meds is part narcotic dependent. Continue his medications for psychiatric D/O. Prophylaxis with lovenox and H2 blockers. FIDELINA MCKNIGHT MD Mar 10, 2017 12:05
[2017-03-10] MEDS: HALOPERIDOL 5 MG TABLET. PO SCH ×2 (12:13→20:26)
[2017-03-10] MEDS: BENZTROPINE MESYLATE 1 MG TABLET. PO SCH ×2 (12:14→20:25)
[2017-03-10] MEDS ORDERED: POTASSIUM CHLORIDE 20 MEQ TABLET.ER. PO ONE (12:15)
[2017-03-10] MEDS ORDERED: DEXTROSE 50% 25 GM / 50ML DISP.SYRIN. IV PRN (12:15)
[2017-03-10] MEDS: ONDANSETRON PF 4 MG/2 ML VIAL. IV PRN ×2 (12:15→20:24)
[2017-03-10] MEDS: POTASSIUM CHLORIDE 30 MEQ in IV 1/2 NORMAL SALINE 1,000 ML IV SCH (12:47)
[2017-03-10] MEDS: KETOROLAC TROMETHAMINE 30 MG/ML INJ. IV PRN (14:54)
--- NOTE | 2017-03-10 16:12 | CARD ---
APPROVED REPORT EXAM: Two-dimensional and M-mode echocardiogram with Doppler and color Doppler. Other Information Quality : Average Rhythm : NSR INDICATION Elevated troponin level 2D DIMENSIONS RVDd3.4 (2.9-3.5cm)Left Atrium(2D)3.5 (1.6-4.0cm) IVSd1.3 (0.7-1.1cm)Aortic Root(2D)3.3 (2.0-3.7cm) LVDd5.2 (3.9-5.9cm)LVOT Diameter2.3 (1.8-2.4cm) PWd1.3 (0.7-1.1cm)LVDs3.2 (2.5-4.0cm) FS (%) 38.9 %SV88.4 ml LVEF(%)69.0 (>50%) Aortic Valve AoV Peak Josh.134.0cm/sAoV VTI22.7cm AO Peak GR.7.2mmHgLVOT Peak Josh.119.8cm/s LVOT VTI 23.33cmAO Mean GR.4mmHg DELFINO (VMAX)3.67cz6SJZ (VTI)4.10cm2 Mitral Valve MV E [place]ul44.4cm/sMV DECEL PQJD428ef MV A Dxarpclu25.0cm/sMV SNX71qr E/A Ratio0.8MV A Fsjqldtk81wc MVA (PHT)5.20cm2 TDI E/Lateral E'6.2E/Medial E'6.9 Pulmonary Valve PV Peak Uhsyxpae753.2cm/sPV Peak Grad.6mmHg RVOT VTI20.0cm Tricuspid Valve TR P. [id number]/sRAP AAFXSHZZ5itUm TR Peak Gr.30voLtHMZI63ntId LEFT VENTRICLE The left ventricle is normal size. There is borderline concentric left ventricular hypertrophy. Left ventricle systolic function is normal. The Ejection Fraction is 65-70%. There is normal LV segmental wall motion. Tissue Doppler imaging reveals mild left ventricular diastolic dysfunction. There is no ventricular septal defect visualized. RIGHT VENTRICLE The right ventricle is normal size. The right ventricular systolic function is normal. ATRIA The left atrium size is normal. The right atrium size is normal. The interatrial septum is intact wit h no evidence for an atrial septal defect or patent foramen ovale as noted on 2-D or Doppler imaging. AORTIC VALVE The aortic valve is normal in structure and function. The aortic valve is trileaflet. Doppler and Col or Flow revealed no significant aortic regurgitation. There is no significant aortic valvular stenosi s. MITRAL VALVE The mitral valve is normal in structure and function. There is no mitral valve stenosis. Doppler and Color Flow revealed no mitral valve regurgitation noted. TRICUSPID VALVE The tricuspid valve is normal in structure. Doppler and Color Flow revealed trace tricuspid regurgita tion. The PA pressure was estimated at 27 mmHg. There is no tricuspid valve stenosis. PULMONIC VALVE The pulmonic valve is not well visualized. Doppler and Color Flow revealed no pulmonic valvular regur gitation. There is no pulmonic valvular stenosis. GREAT VESSELS The aortic root is normal in size. Normal pulmonary venous flow (Doppler). The IVC is normal in size and collapses >50% with inspiration. PERICARDIAL EFFUSION There is no evidence of significant pericardial effusion. Critical Notification Critical Value: No <Conclusion> Left ventricle systolic function is normal. The Ejection Fraction is 65-70%. There is normal LV segmental wall motion. Tissue Doppler imaging reveals mild left ventricular diastolic dysfunction.
[2017-03-10] MEDS: INSULIN ASPART 300 UNITS/3 ML INSULN.PEN SQ SCH (16:44)
[2017-03-10] MEDS: NICOTINE 21MG PATCH. TD SCH (19:03)
[2017-03-10] MEDS: traZODone 50 MG TABLET. PO SCH (20:25)
[2017-03-10] MEDS: hydrOXYzine PAMOATE 25 MG CAPSULE PO SCH (20:25)
[2017-03-10] MEDS ORDERED: FAMOTIDINE 20 MG/2 ML VIAL IVP SCH (21:00)
[2017-03-11] MEDS: KETOROLAC TROMETHAMINE 30 MG/ML INJ. IV PRN ×2 (00:54→20:45)
[2017-03-11 03:00] VITALS: BP 144/99
[2017-03-11] MEDS: POTASSIUM CHLORIDE 30 MEQ in IV 1/2 NORMAL SALINE 1,000 ML IV SCH ×2 (03:19→16:32)
[2017-03-11] MEDS: HYDROmorphone 2 MG/ML VIAL IV PRN ×6 (03:19→18:14)
[2017-03-11 04:45] LABS: BASO % 0 % (0-3); EOS % 0 % (0-3); HEMATOCRIT 42.5 % (39.0-53.0); HEMOGLOBIN 14.3 g/dL (13.0-17.5); LYMPH # 1.5 x10^3/uL (1.0-4.8); LYMPH % 8 % (24-48); MEAN CORPUSCULAR HEMOGLOBIN 29 pg (25-35); MEAN CORPUSCULAR HGB CONC 34 g/dL (31-37); MEAN CORPUSCULAR VOLUME 87 fL (79-100); MONO % 9 % (0-9); NEUT % 83 % (31-73); PLATELET COUNT 143 x10^3/uL (140-400); WHITE BLOOD COUNT 18.1 x10^3/uL (4.0-11.0)
[2017-03-11 05:23] LABS: CALCIUM 8.6 mg/dL (8.5-10.1); CREATININE 0.8 mg/dL (0.7-1.3); GFR 113.5; POTASSIUM 3.1 mmol/L (3.5-5.1)
[2017-03-11 07:00] VITALS: BP 149/107
[2017-03-11] MEDS: ONDANSETRON PF 4 MG/2 ML VIAL. IV PRN ×2 (07:44→12:31)
[2017-03-11] MEDS ORDERED: CALCIUM CARBONATE 500 MG TAB.CHEW PO PRN (08:30)
[2017-03-11] MEDS: HALOPERIDOL 5 MG TABLET. PO SCH ×2 (08:56→20:17)
[2017-03-11] MEDS: BENZTROPINE MESYLATE 1 MG TABLET. PO SCH ×2 (08:58→20:19)
[2017-03-11] MEDS ORDERED: MAGNESIUM SULFATE 2GM 50 ML IV ONE (09:00)
[2017-03-11] MEDS ORDERED: HYDROmorphone 2 MG/ML VIAL IVP ONE (09:00)
[2017-03-11] MEDS: INSULIN ASPART 300 UNITS/3 ML INSULN.PEN SQ SCH ×3 (09:04→18:16)
[2017-03-11] MEDS: NICOTINE 21MG PATCH. TD SCH (09:41)
[2017-03-11 10:34] VITALS: BP 157/116
--- NOTE | 2017-03-11 13:17 | PDOC ---
Subjective: Subjective: Maybe a little better, still has lower abd pain to back, no n/v. Says needing pain meds frequently. Tolerating clear liquids earlier. Objective: Objective: Reviewed RN notes. Vital Signs: Vital Signs Date Time Temp Pulse Resp B/P (MAP) Pulse Ox O2 Delivery O2 Flow Rate FiO2 03/11/17 12:59 16 92 Room Air 03/11/17 10:34 98.2 106 157/116 (130) 98.2 Labs: Laboratory Tests Test 03/10/17 16:42 03/10/17 20:40 03/11/17 07:11 03/11/17 11:10 Glucose (Fingerstick) 158 mg/dL (70-99) 189 mg/dL (70-99) 156 mg/dL (70-99) 214 mg/dL (70-99) PE: GEN: NAD, sitting up in bed LUNGS:clear HEART: tachycardic ABD: LLQ/periumbilical pain NEURO/PSYCH: A & O 3 A/P: Abd/back pain, elevated lipase (a little worse) and LFTs, leukocytosis (stable) , h/o alcoholic pancreatitis -distended gallbladder on US, no stones, last CT in 01/2017 w/ unremarkable pancreas -ordered recheck of lipase this afternoon, some worse (from 941 to 973) -Hepatitis panel negative in 2014 GERD -has been on IV H2 maria eugenia -- Was advanced to clear liquids earlier today which he tolerated, but ongoing pain. Since taking clears, will change to PO PPI. Recheck CBC and lipase tomorrow. JIMMY CLAY Mar 11, 2017 13:17
[2017-03-11 14:55] VITALS: BP 157/111
--- NOTE | 2017-03-11 15:21 | PDOC ---
PROGRESS NOTES Chief Complaint Chief Complaint recurrent pancreatitis. acute abd pain EtOH abuse . lipase and LFTs will be monitored. History of Present Illness History of Present Illness pain control better with large dose dilaudid, clear liquids, advance as deysi, try to transition to PO pain meds if able to deysi PO, plan DC soon Vitals Vitals Vital Signs Date Time Temp Pulse Resp B/P (MAP) Pulse Ox O2 Delivery O2 Flow Rate FiO2 03/11/17 14:55 97.9 109 18 157/111 (126) 96 Room Air 97.9 Physical Exam General: Alert, Oriented X3, Cooperative, No acute distress Heart: Regular rate, Normal S1, Normal S2 Lungs: Clear Abdomen: Normal bowel sounds, Soft, Other (TTP LLQ) Extremities: No clubbing, No edema Skin: No rashes Labs LABS Laboratory Tests Test 03/10/17 16:42 03/10/17 20:40 03/11/17 04:10 03/11/17 07:11 Glucose (Fingerstick) 158 mg/dL (70-99) 189 mg/dL (70-99) 156 mg/dL (70-99) White Blood Count 18.1 x10^3/uL (4.0-11.0) Red Blood Count 4.90 x10^6/uL (4.30-5.70) Hemoglobin 14.3 g/dL (13.0-17.5) Hematocrit 42.5 % (39.0-53.0) Mean Corpuscular Volume 87 fL (79-100) Mean Corpuscular Hemoglobin 29 pg (25-35) Mean Corpuscular Hemoglobin Concent 34 g/dL (31-37) Red Cell Distribution Width 14.0 % (11.5-14.5) Platelet Count 143 x10^3/uL (140-400) Neutrophils (%) (Auto) 83 % (31-73) Lymphocytes (%) (Auto) 8 % (24-48) Monocytes (%) (Auto) 9 % (0-9) Eosinophils (%) (Auto) 0 % (0-3) Basophils (%) (Auto) 0 % (0-3) Neutrophils # (Auto) 15.0 x10^3uL (1.8-7.7) Lymphocytes # (Auto) 1.5 x10^3/uL (1.0-4.8) Monocytes # (Auto) 1.6 x10^3/uL (0.0-1.1) Eosinophils # (Auto) 0.0 x10^3/uL (0.0-0.7) Basophils # (Auto) 0.0 x10^3/uL (0.0-0.2) Sodium Level 137 mmol/L (136-145) Potassium Level 3.1 mmol/L (3.5-5.1) Chloride Level 96 mmol/L (98-107) Carbon Dioxide Level 33 mmol/L (21-32) Anion Gap 8 (6-14) Blood Urea Nitrogen 7 mg/dL (8-26) Creatinine 0.8 mg/dL (0.7-1.3) Estimated GFR (Cockcroft-Gault) 113.5 Glucose Level 158 mg/dL (70-99) Calcium Level 8.6 mg/dL (8.5-10.1) Lipase 973 U/L (73-393) Test 03/11/17 11:10 Glucose (Fingerstick) 214 mg/dL (70-99) Review of Systems Review of Systems abd pain and nausea pain 02/08 Assessment and Plan Assessmemt and Plan Problems Medical Problems: (1) Abdominal pain Status: Acute (2) Pancreatitis Status: Acute Problems: Comment Review of Relevant I have reviewed the following items patricia (where applicable) has been applied. Labs Laboratory Tests Test 03/10/17 03:00 03/10/17 03:04 03/10/17 11:55 03/10/17 14:40 Urine Collection Type Unknown Urine Color [place] Urine Clarity Cloudy Urine pH 7.5 Urine Specific [place] 1.020 Urine Protein Negative mg/dL (NEG-TRACE) Urine Glucose (UA) Negative mg/dL (NEG) Urine Ketones (Stick) Trace mg/dL (NEG) Urine Blood Negative (NEG) Urine Nitrite Negative (NEG) Urine Bilirubin Negative (NEG) Urine Urobilinogen Dipstick 0.2 mg/dL (0.2 mg/dL) Urine Leukocyte Esterase Trace (NEG) Urine RBC Occ /HPF (0-2) Urine WBC 11-20 /HPF (0-4) Urine Squamous Epithelial Cells Occ /LPF Urine Amorphous Sediment Present /HPF Urine Bacteria 0 /HPF (0-FEW) Urine Hyaline Casts Few /HPF Urine Mucus Mod /LPF Urine Opiates Screen Neg (NEG) Urine Methadone Screen Neg (NEG) Urine Barbiturates Neg (NEG) Urine Phencyclidine Screen Neg (NEG) Urine Amphetamine/Methamphetamine Neg (NEG) Urine Benzodiazepines Screen Neg (NEG) Urine Cocaine Screen Neg (NEG) Urine Cannabinoids Screen Pos (NEG) Urine Ethyl Alcohol Neg (NEG) White Blood Count 17.9 x10^3/uL (4.0-11.0) Red Blood Count 6.04 x10^6/uL (4.30-5.70) Hemoglobin 17.6 g/dL (13.0-17.5) Hematocrit 51.8 % (39.0-53.0) Mean Corpuscular Volume 86 fL (79-100) Mean Corpuscular Hemoglobin 29 pg (25-35) Mean Corpuscular Hemoglobin Concent 34 g/dL (31-37) Red Cell Distribution Width 14.0 % (11.5-14.5) Platelet Count 205 x10^3/uL (140-400) Neutrophils (%) (Auto) 85 % (31-73) Lymphocytes (%) (Auto) 8 % (24-48) Monocytes (%) (Auto) 6 % (0-9) Eosinophils (%) (Auto) 0 % (0-3) Basophils (%) (Auto) 0 % (0-3) Neutrophils # (Auto) 15.2 x10^3uL (1.8-7.7) Lymphocytes # (Auto) 1.5 x10^3/uL (1.0-4.8) Monocytes # (Auto) 1.1 x10^3/uL (0.0-1.1) Eosinophils # (Auto) 0.0 x10^3/uL (0.0-0.7) Basophils # (Auto) 0.1 x10^3/uL (0.0-0.2) Segmented Neutrophils % 86 % (35-66) Band Neutrophils % 1 % (0-9) Lymphocytes % 11 % (24-48) Monocytes % 2 % (0-10) Platelet Estimate Adequate (ADEQUATE) Sodium Level 135 mmol/L (136-145) Potassium Level 3.3 mmol/L (3.5-5.1) Chloride Level 88 mmol/L (98-107) Carbon Dioxide Level 28 mmol/L (21-32) Anion Gap 19 (6-14) Blood Urea Nitrogen 8 mg/dL (8-26) Creatinine 1.3 mg/dL (0.7-1.3) Estimated GFR (Cockcroft-Gault) 64.8 Glucose Level 219 mg/dL (70-99) Calcium Level 11.2 mg/dL (8.5-10.1) Magnesium Level 1.7 mg/dL (1.8-2.4) Total Bilirubin 2.9 mg/dL (0.2-1.0) Direct Bilirubin 0.7 mg/dL (0.0-0.2) Aspartate Amino Transf (AST/SGOT) 89 U/L (15-37) Alanine Aminotransferase (ALT/SGPT) 122 U/L (16-63) Alkaline Phosphatase 125 U/L (46-116) Troponin I Quantitative 0.074 ng/mL (0.000-0.055) < 0.017 ng/mL (0.000-0.055) Total Protein 8.2 g/dL (6.4-8.2) Albumin 4.8 g/dL (3.4-5.0) Lipase 941 U/L (73-393) Ethyl Alcohol Level < 10 mg/dL (0-10) Nasal Screen MRSA (PCR) Negative (Negative) Test 03/10/17 16:42 03/10/17 20:40 03/11/17 04:10 03/11/17 07:11 Glucose (Fingerstick) 158 mg/dL (70-99) 189 mg/dL (70-99) 156 mg/dL (70-99) White Blood Count 18.1 x10^3/uL (4.0-11.0) Red Blood Count 4.90 x10^6/uL (4.30-5.70) Hemoglobin 14.3 g/dL (13.0-17.5) Hematocrit 42.5 % (39.0-53.0) Mean Corpuscular Volume 87 fL (79-100) Mean Corpuscular Hemoglobin 29 pg (25-35) Mean Corpuscular Hemoglobin Concent 34 g/dL (31-37) Red Cell Distribution Width 14.0 % (11.5-14.5) Platelet Count 143 x10^3/uL (140-400) Neutrophils (%) (Auto) 83 % (31-73) Lymphocytes (%) (Auto) 8 % (24-48) Monocytes (%) (Auto) 9 % (0-9) Eosinophils (%) (Auto) 0 % (0-3) Basophils (%) (Auto) 0 % (0-3) Neutrophils # (Auto) 15.0 x10^3uL (1.8-7.7) Lymphocytes # (Auto) 1.5 x10^3/uL (1.0-4.8) Monocytes # (Auto) 1.6 x10^3/uL (0.0-1.1) Eosinophils # (Auto) 0.0 x10^3/uL (0.0-0.7) Basophils # (Auto) 0.0 x10^3/uL (0.0-0.2) Sodium Level 137 mmol/L (136-145) Potassium Level 3.1 mmol/L (3.5-5.1) Chloride Level 96 mmol/L (98-107) Carbon Dioxide Level 33 mmol/L (21-32) Anion Gap 8 (6-14) Blood Urea Nitrogen 7 mg/dL (8-26) Creatinine 0.8 mg/dL (0.7-1.3) Estimated GFR (Cockcroft-Gault) 113.5 Glucose Level 158 mg/dL (70-99) Calcium Level 8.6 mg/dL (8.5-10.1) Lipase 973 U/L (73-393) Test 03/11/17 11:10 Glucose (Fingerstick) 214 mg/dL (70-99) Laboratory Tests Test 03/10/17 16:42 03/10/17 20:40 03/11/17 04:10 03/11/17 07:11 Glucose (Fingerstick) 158 mg/dL (70-99) 189 mg/dL (70-99) 156 mg/dL (70-99) White Blood Count 18.1 x10^3/uL (4.0-11.0) Red Blood Count 4.90 x10^6/uL (4.30-5.70) Hemoglobin 14.3 g/dL (13.0-17.5) Hematocrit 42.5 % (39.0-53.0) Mean Corpuscular Volume 87 fL (79-100) Mean Corpuscular Hemoglobin 29 pg (25-35) Mean Corpuscular Hemoglobin Concent 34 g/dL (31-37) Red Cell Distribution Width 14.0 % (11.5-14.5) Platelet Count 143 x10^3/uL (140-400) Neutrophils (%) (Auto) 83 % (31-73) Lymphocytes (%) (Auto) 8 % (24-48) Monocytes (%) (Auto) 9 % (0-9) Eosinophils (%) (Auto) 0 % (0-3) Basophils (%) (Auto) 0 % (0-3) Neutrophils # (Auto) 15.0 x10^3uL (1.8-7.7) Lymphocytes # (Auto) 1.5 x10^3/uL (1.0-4.8) Monocytes # (Auto) 1.6 x10^3/uL (0.0-1.1) Eosinophils # (Auto) 0.0 x10^3/uL (0.0-0.7) Basophils # (Auto) 0.0 x10^3/uL (0.0-0.2) Sodium Level 137 mmol/L (136-145) Potassium Level 3.1 mmol/L (3.5-5.1) Chloride Level 96 mmol/L (98-107) Carbon Dioxide Level 33 mmol/L (21-32) Anion Gap 8 (6-14) Blood Urea Nitrogen 7 mg/dL (8-26) Creatinine 0.8 mg/dL (0.7-1.3) Estimated GFR (Cockcroft-Gault) 113.5 Glucose Level 158 mg/dL (70-99) Calcium Level 8.6 mg/dL (8.5-10.1) Lipase 973 U/L (73-393) Test 03/11/17 11:10 Glucose (Fingerstick) 214 mg/dL (70-99) Microbiology 03/10/17 Urine Culture - Preliminary, Resulted 03/10/17 Urine Culture Result 1 (DINA) - Preliminary, Resulted Medications Current Medications Sodium Chloride 500 ml @ 500 mls/hr 1X ONCE IV Last administered on 04:00; Start 03/10/17 at 03:00; Stop 03/10/17 at 03:59; Status DC Sodium Chloride 1,000 ml @ 1,000 mls/hr 1X ONCE IV Last administered on 03:08; Start 03/10/17 at 03:30; Stop 03/10/17 at 04:29; Status DC Ondansetron HCl (Zofran Odt) 4 mg 1X ONCE PO Last administered on 03/10/17 03 :08; Start 03/10/17 at 03:30; Stop 03/10/17 at 03:31; Status DC Hydromorphone HCl (Dilaudid) 0.5 mg PRN Q30MIN PRN IV SEVERE PAIN Last administered on 03/10/17 09:14; Start 03/10/17 at 03:00; Stop 03/10/17 at 09:14 ; Status DC Ondansetron HCl (Zofran) 4 mg STK-MED ONCE .ROUTE ; Start 03/10/17 at 03:00; Stop 03/10/17 at 03:01; Status DC Ondansetron HCl (Zofran) 4 mg 1X ONCE IV Last administered on 03/10/17 03:09 ; Start 03/10/17 at 03:30; Stop 03/10/17 at 03:31; Status DC Ketorolac Tromethamine (Toradol) 15 mg STK-MED ONCE .ROUTE ; Start 03/10/17 at 04:14; Stop 03/10/17 at 04:15; Status DC Ketorolac Tromethamine (Toradol) 15 mg 1X ONCE IV Last administered on 04:20; Start 03/10/17 at 04:30; Stop 03/10/17 at 04:31; Status DC Sodium Chloride 1,000 ml @ 100 mls/hr 1X ONCE IV Last administered on 07:45; Start 03/10/17 at 04:30; Stop 03/10/17 at 14:29; Status DC Aspirin (Brandon Aspirin) 325 mg 1X ONCE PO ; Start 03/10/17 at 04:30; Stop 03/10 at 04:31; Status DC Aspirin (Children'S Aspirin) 324 mg 1X ONCE PO Last administered on 03/10/17 04:21; Start 03/10/17 at 04:30; Stop 03/10/17 at 04:31; Status DC Ondansetron HCl (Zofran) 4 mg PRN Q8HRS PRN IV NAUSEA/VOMITING Last administered on 03/10/17 20:24; Start 03/10/17 at 04:30; Stop 03/10/17 at 21:00 ; Status DC Fentanyl Citrate (Fentanyl 2ml Vial) 50 mcg PRN Q1HR PRN IV SEVERE PAIN Last administered on 03/10/17 11:19; Start 03/10/17 at 04:30; Stop 03/11/17 at 04:30 ; Status DC Famotidine (Pepcid) 20 mg QHS IVP Last administered on 03/10/17 20:25; Start 03/10/17 at 21:00; Stop 03/11/17 at 13:14; Status DC Potassium Chloride (Klor-Con) 40 meq 1X ONCE PO ; Start 03/10/17 at 12:15; Stop 03/10/17 at 12:16; Status DC Benztropine Mesylate (Cogentin) 1 mg BID PO Last administered on 03/11/17 08: 58; Start 03/10/17 at 13:00 Haloperidol (Haldol) 7.5 mg BID PO Last administered on 03/11/17 08:56; Start 03/10/17 at 13:00 Hydroxyzine Pamoate (Vistaril) 200 mg QHS PO Last administered on 03/10/17 20: 25; Start 03/10/17 at 21:00 Trazodone HCl (Desyrel) 150 mg QHS PO Last administered on 03/10/17 20:25; Start 03/10/17 at 21:00 Hydromorphone HCl (Dilaudid) 0.5 mg Q2H PRN IV pain Last administered on 07:43; Start 03/10/17 at 12:15; Stop 03/11/17 at 08:56; Status DC Ketorolac Tromethamine (Toradol) 30 mg PRN Q8HRS PRN IV PAIN/INFLAMMATION Last administered on 03/11/17 00:54; Start 03/10/17 at 12:15; Stop 03/13/17 at 10:00 Insulin Aspart (NovoLOG) 0-5 UNITS TIDWMEALS SQ Last administered on 03/11/17 12:38; Start 03/10/17 at 17:00 Dextrose (Dextrose 50%-Water Syringe) 12.5 gm PRN Q15MIN PRN IV SEE COMMENTS; Start 03/10/17 at 12:15 Potassium Chloride 30 meq/ Sodium Chloride 1,015 ml @ 75 mls/hr [id number] IV Last administered on 03/11/17 03:19; Start 03/10/17 at 13:00 Nicotine (Nicoderm Cq 21mg) 1 patch DAILY TD Last administered on 03/11/17 09: 41; Start 03/10/17 at 19:00 Ondansetron HCl (Zofran) 4 mg PRN Q6HRS PRN IV NAUSEA/VOMITING Last administered on 03/11/17 12:31; Start 03/10/17 at 21:00 Calcium Carbonate/ Glycine (Tums) 500 mg PRN AFTMEALHC PRN PO INDIGESTION; Start 03/11/17 at 08:30 Magnesium Sulfate/ Dextrose 50 ml @ 25 mls/hr 1X ONCE IV Last administered on 03/11/17 09:38; Start 03/11/17 at 09:00; Stop 03/11/17 at 10:59; Status DC Hydromorphone HCl (Dilaudid) 1 mg PRN Q2HRS PRN IV PAIN Last administered on 14:32; Start 03/11/17 at 10:15 Hydromorphone HCl (Dilaudid) 1 mg 1X ONCE IVP Last administered on 03/11/17 09:34; Start 03/11/17 at 09:00; Stop 03/11/17 at 09:04; Status DC Pantoprazole Sodium (Protonix) 40 mg DAILYAC PO ; Start 03/11/17 at 16:30 Active Scripts Active Reported Trazodone Hcl 150 Mg Tablet 1 Tab PO QHS Benztropine Mesylate 1 Mg Tablet 1 Tab PO BID Haloperidol 5 Mg Tablet 7.5 Mg PO BID Hydroxyzine Hcl 50 Mg Tablet 200 Mg PO HS Trazodone Hcl 150 Mg Tablet 150 Mg PO HS Vitals/I & O Vital Sign - Last 24 Hours 03/10/17 03/10/17 03/10/17 03/10/17 15:47 18:00 18:15 19:00 B/P (MAP) 147/92 (110) O2 Delivery Room Air Room Air Room Air 03/10/17 03/10/17 03/10/17 03/10/17 19:00 20:25 23:00 23:08 Temp 98.1 98.8 98.1 98.8 Pulse 109 102 Resp 18 16 18 16 B/P (MAP) 141/64 (89) 154/110 (125) Pulse Ox 96 96 98 96 O2 Delivery Room Air Room Air Room Air Room Air 03/10/17 03/11/17 03/11/17 03/11/17 23:30 03:00 03:19 05:22 Temp 99.5 99.5 Pulse 103 114 Resp 18 16 18 B/P (MAP) 150/92 (111) 144/99 (114) Pulse Ox 98 96 96 O2 Delivery Room Air Room Air Room Air 03/11/17 03/11/17 03/11/17 03/11/17 07:00 07:43 08:00 08:13 Temp 98.2 98.2 Pulse 120 Resp 18 18 B/P (MAP) 149/107 (121) Pulse Ox 96 96 96 O2 Delivery Room Air Room Air Room Air Room Air 03/11/17 03/11/17 03/11/17 03/11/17 09:34 10:04 10:34 12:29 Temp 98.2 98.2 Pulse 106 Resp 16 18 16 B/P (MAP) 157/116 (130) Pulse Ox 96 92 92 92 O2 Delivery Room Air Room Air Room Air Room Air 03/11/17 03/11/17 03/11/17 12:59 14:32 14:55 Temp 97.9 97.9 Pulse 109 Resp 16 16 18 B/P (MAP) 157/111 (126) Pulse Ox 92 92 96 O2 Delivery Room Air Room Air Room Air Intake and Output 03/10/17 03/10/17 03/11/17 15:00 23:00 07:00 Intake Total 0 ml 1015 ml Balance 0 ml 1015 ml MIKE FERGUSON MD Mar 11, 2017 15:21
[2017-03-11] MEDS: PANTOPRAZOLE 40 MG TABLET.DR. PO SCH (16:30)
[2017-03-11] MEDS ORDERED: LORazepam 1 MG TABLET PO ONE (18:30)
[2017-03-11 19:00] VITALS: BP 163/116
[2017-03-11] MEDS: LORazepam 1 MG TABLET PO SCH (20:19)
[2017-03-11] MEDS: traZODone 50 MG TABLET. PO SCH (20:20)
[2017-03-11] MEDS: hydrOXYzine PAMOATE 25 MG CAPSULE PO SCH (20:21)
[2017-03-11 22:34] VITALS: BP 149/103
[2017-03-12] MEDS: HYDROmorphone 2 MG/ML VIAL IV PRN ×6 (00:47→21:47)
[2017-03-12] MEDS: ONDANSETRON PF 4 MG/2 ML VIAL. IV PRN ×3 (03:58→18:30)
[2017-03-12] MEDS: POTASSIUM CHLORIDE 30 MEQ in IV 1/2 NORMAL SALINE 1,000 ML IV SCH ×3 (05:29→20:35)
[2017-03-12 06:39] LABS: BASO % 0 % (0-3); EOS % 0 % (0-3); HEMATOCRIT 40.5 % (39.0-53.0); HEMOGLOBIN 13.9 g/dL (13.0-17.5); LYMPH # 1.5 x10^3/uL (1.0-4.8); LYMPH % 9 % (24-48); MEAN CORPUSCULAR HEMOGLOBIN 29 pg (25-35); MEAN CORPUSCULAR HGB CONC 34 g/dL (31-37); MEAN CORPUSCULAR VOLUME 86 fL (79-100); MONO % 9 % (0-9); NEUT % 81 % (31-73); PLATELET COUNT 124 x10^3/uL (140-400); RED BLOOD COUNT 4.73 x10^6/uL (4.30-5.70); RED CELL DISTRIBUTION WIDTH 13.6 % (11.5-14.5); WHITE BLOOD COUNT 15.8 x10^3/uL (4.0-11.0)
[2017-03-12 07:00] VITALS: BP 149/109
[2017-03-12] MEDS: BENZTROPINE MESYLATE 1 MG TABLET. PO SCH ×2 (08:18→21:44)
[2017-03-12] MEDS: PANTOPRAZOLE 40 MG TABLET.DR. PO SCH (08:18)
[2017-03-12] MEDS: LORazepam 1 MG TABLET PO SCH ×2 (08:19→21:44)
[2017-03-12] MEDS: HALOPERIDOL 5 MG TABLET. PO SCH ×2 (08:19→21:44)
[2017-03-12] MEDS: NICOTINE 21MG PATCH. TD SCH (08:20)
[2017-03-12] MEDS: INSULIN ASPART 300 UNITS/3 ML INSULN.PEN SQ SCH ×3 (08:35→17:00)
--- NOTE | 2017-03-12 08:44 | PDOC ---
PROGRESS NOTES Chief Complaint Chief Complaint recurrent pancreatitis. acute abd pain EtOH abuse hypokalemia History of Present Illness History of Present Illness pain control better - but not willing to try full liquid diet, some pain cont clear liquids, advance as deysi, try to transition to PO pain meds increase IV fluid rate at pt request' Vitals Vitals Vital Signs Date Time Temp Pulse Resp B/P (MAP) Pulse Ox O2 Delivery O2 Flow Rate FiO2 03/12/17 08:20 Room Air 03/12/17 07:00 99.3 116 20 149/109 (122) 93 99.3 Physical Exam General: Alert, Oriented X3, Cooperative, No acute distress Heart: Regular rate, Normal S1, Normal S2 Lungs: Clear Abdomen: Normal bowel sounds, Soft, Other (TTP LLQ) Extremities: No clubbing, No edema Skin: No rashes Labs LABS Laboratory Tests Test 03/11/17 11:10 03/11/17 18:03 03/11/17 20:01 03/12/17 06:05 Glucose (Fingerstick) 214 mg/dL (70-99) 199 mg/dL (70-99) 165 mg/dL (70-99) White Blood Count 15.8 x10^3/uL (4.0-11.0) Red Blood Count 4.73 x10^6/uL (4.30-5.70) Hemoglobin 13.9 g/dL (13.0-17.5) Hematocrit 40.5 % (39.0-53.0) Mean Corpuscular Volume 86 fL (79-100) Mean Corpuscular Hemoglobin 29 pg (25-35) Mean Corpuscular Hemoglobin Concent 34 g/dL (31-37) Red Cell Distribution Width 13.6 % (11.5-14.5) Platelet Count 124 x10^3/uL (140-400) Neutrophils (%) (Auto) 81 % (31-73) Lymphocytes (%) (Auto) 9 % (24-48) Monocytes (%) (Auto) 9 % (0-9) Eosinophils (%) (Auto) 0 % (0-3) Basophils (%) (Auto) 0 % (0-3) Neutrophils # (Auto) 12.9 x10^3uL (1.8-7.7) Lymphocytes # (Auto) 1.5 x10^3/uL (1.0-4.8) Monocytes # (Auto) 1.4 x10^3/uL (0.0-1.1) Eosinophils # (Auto) 0.1 x10^3/uL (0.0-0.7) Basophils # (Auto) 0.0 x10^3/uL (0.0-0.2) Lipase 310 U/L (73-393) Test 03/12/17 07:23 Glucose (Fingerstick) 166 mg/dL (70-99) Review of Systems Review of Systems abd pain, some with clears, he does not want to advance diet Assessment and Plan Assessmemt and Plan Problems Medical Problems: (1) Abdominal pain Status: Acute (2) Pancreatitis Status: Acute Problems: Comment Review of Relevant I have reviewed the following items patricia (where applicable) has been applied. Labs Laboratory Tests Test 03/10/17 11:55 03/10/17 14:40 03/10/17 16:42 03/10/17 20:40 Troponin I Quantitative < 0.017 ng/mL (0.000-0.055) Nasal Screen MRSA (PCR) Negative (Negative) Glucose (Fingerstick) 158 mg/dL (70-99) 189 mg/dL (70-99) Test 03/11/17 04:10 03/11/17 07:11 03/11/17 11:10 03/11/17 18:03 White Blood Count 18.1 x10^3/uL (4.0-11.0) Red Blood Count 4.90 x10^6/uL (4.30-5.70) Hemoglobin 14.3 g/dL (13.0-17.5) Hematocrit 42.5 % (39.0-53.0) Mean Corpuscular Volume 87 fL (79-100) Mean Corpuscular Hemoglobin 29 pg (25-35) Mean Corpuscular Hemoglobin Concent 34 g/dL (31-37) Red Cell Distribution Width 14.0 % (11.5-14.5) Platelet Count 143 x10^3/uL (140-400) Neutrophils (%) (Auto) 83 % (31-73) Lymphocytes (%) (Auto) 8 % (24-48) Monocytes (%) (Auto) 9 % (0-9) Eosinophils (%) (Auto) 0 % (0-3) Basophils (%) (Auto) 0 % (0-3) Neutrophils # (Auto) 15.0 x10^3uL (1.8-7.7) Lymphocytes # (Auto) 1.5 x10^3/uL (1.0-4.8) Monocytes # (Auto) 1.6 x10^3/uL (0.0-1.1) Eosinophils # (Auto) 0.0 x10^3/uL (0.0-0.7) Basophils # (Auto) 0.0 x10^3/uL (0.0-0.2) Sodium Level 137 mmol/L (136-145) Potassium Level 3.1 mmol/L (3.5-5.1) Chloride Level 96 mmol/L (98-107) Carbon Dioxide Level 33 mmol/L (21-32) Anion Gap 8 (6-14) Blood Urea Nitrogen 7 mg/dL (8-26) Creatinine 0.8 mg/dL (0.7-1.3) Estimated GFR (Cockcroft-Gault) 113.5 Glucose Level 158 mg/dL (70-99) Calcium Level 8.6 mg/dL (8.5-10.1) Lipase 973 U/L (73-393) Glucose (Fingerstick) 156 mg/dL (70-99) 214 mg/dL (70-99) 199 mg/dL (70-99) Test 03/11/17 20:01 03/12/17 06:05 03/12/17 07:23 Glucose (Fingerstick) 165 mg/dL (70-99) 166 mg/dL (70-99) White Blood Count 15.8 x10^3/uL (4.0-11.0) Red Blood Count 4.73 x10^6/uL (4.30-5.70) Hemoglobin 13.9 g/dL (13.0-17.5) Hematocrit 40.5 % (39.0-53.0) Mean Corpuscular Volume 86 fL (79-100) Mean Corpuscular Hemoglobin 29 pg (25-35) Mean Corpuscular Hemoglobin Concent 34 g/dL (31-37) Red Cell Distribution Width 13.6 % (11.5-14.5) Platelet Count 124 x10^3/uL (140-400) Neutrophils (%) (Auto) 81 % (31-73) Lymphocytes (%) (Auto) 9 % (24-48) Monocytes (%) (Auto) 9 % (0-9) Eosinophils (%) (Auto) 0 % (0-3) Basophils (%) (Auto) 0 % (0-3) Neutrophils # (Auto) 12.9 x10^3uL (1.8-7.7) Lymphocytes # (Auto) 1.5 x10^3/uL (1.0-4.8) Monocytes # (Auto) 1.4 x10^3/uL (0.0-1.1) Eosinophils # (Auto) 0.1 x10^3/uL (0.0-0.7) Basophils # (Auto) 0.0 x10^3/uL (0.0-0.2) Lipase 310 U/L (73-393) Laboratory Tests Test 03/11/17 11:10 03/11/17 18:03 03/11/17 20:01 03/12/17 06:05 Glucose (Fingerstick) 214 mg/dL (70-99) 199 mg/dL (70-99) 165 mg/dL (70-99) White Blood Count 15.8 x10^3/uL (4.0-11.0) Red Blood Count 4.73 x10^6/uL (4.30-5.70) Hemoglobin 13.9 g/dL (13.0-17.5) Hematocrit 40.5 % (39.0-53.0) Mean Corpuscular Volume 86 fL (79-100) Mean Corpuscular Hemoglobin 29 pg (25-35) Mean Corpuscular Hemoglobin Concent 34 g/dL (31-37) Red Cell Distribution Width 13.6 % (11.5-14.5) Platelet Count 124 x10^3/uL (140-400) Neutrophils (%) (Auto) 81 % (31-73) Lymphocytes (%) (Auto) 9 % (24-48) Monocytes (%) (Auto) 9 % (0-9) Eosinophils (%) (Auto) 0 % (0-3) Basophils (%) (Auto) 0 % (0-3) Neutrophils # (Auto) 12.9 x10^3uL (1.8-7.7) Lymphocytes # (Auto) 1.5 x10^3/uL (1.0-4.8) Monocytes # (Auto) 1.4 x10^3/uL (0.0-1.1) Eosinophils # (Auto) 0.1 x10^3/uL (0.0-0.7) Basophils # (Auto) 0.0 x10^3/uL (0.0-0.2) Lipase 310 U/L (73-393) Test 03/12/17 07:23 Glucose (Fingerstick) 166 mg/dL (70-99) Microbiology 03/10/17 Urine Culture - Preliminary, Resulted 03/10/17 Urine Culture Result 1 (DINA) - Preliminary, Resulted Medications Current Medications Sodium Chloride 500 ml @ 500 mls/hr 1X ONCE IV Last administered on 04:00; Start 03/10/17 at 03:00; Stop 03/10/17 at 03:59; Status DC Sodium Chloride 1,000 ml @ 1,000 mls/hr 1X ONCE IV Last administered on 03:08; Start 03/10/17 at 03:30; Stop 03/10/17 at 04:29; Status DC Ondansetron HCl (Zofran Odt) 4 mg 1X ONCE PO Last administered on 03/10/17 03 :08; Start 03/10/17 at 03:30; Stop 03/10/17 at 03:31; Status DC Hydromorphone HCl (Dilaudid) 0.5 mg PRN Q30MIN PRN IV SEVERE PAIN Last administered on 03/10/17 09:14; Start 03/10/17 at 03:00; Stop 03/10/17 at 09:14 ; Status DC Ondansetron HCl (Zofran) 4 mg STK-MED ONCE .ROUTE ; Start 03/10/17 at 03:00; Stop 03/10/17 at 03:01; Status DC Ondansetron HCl (Zofran) 4 mg 1X ONCE IV Last administered on 03/10/17 03:09 ; Start 03/10/17 at 03:30; Stop 03/10/17 at 03:31; Status DC Ketorolac Tromethamine (Toradol) 15 mg STK-MED ONCE .ROUTE ; Start 03/10/17 at 04:14; Stop 03/10/17 at 04:15; Status DC Ketorolac Tromethamine (Toradol) 15 mg 1X ONCE IV Last administered on 04:20; Start 03/10/17 at 04:30; Stop 03/10/17 at 04:31; Status DC Sodium Chloride 1,000 ml @ 100 mls/hr 1X ONCE IV Last administered on 07:45; Start 03/10/17 at 04:30; Stop 03/10/17 at 14:29; Status DC Aspirin (Brandon Aspirin) 325 mg 1X ONCE PO ; Start 03/10/17 at 04:30; Stop 03/10 at 04:31; Status DC Aspirin (Children'S Aspirin) 324 mg 1X ONCE PO Last administered on 03/10/17 04:21; Start 03/10/17 at 04:30; Stop 03/10/17 at 04:31; Status DC Ondansetron HCl (Zofran) 4 mg PRN Q8HRS PRN IV NAUSEA/VOMITING Last administered on 03/10/17 20:24; Start 03/10/17 at 04:30; Stop 03/10/17 at 21:00 ; Status DC Fentanyl Citrate (Fentanyl 2ml Vial) 50 mcg PRN Q1HR PRN IV SEVERE PAIN Last administered on 03/10/17 11:19; Start 03/10/17 at 04:30; Stop 03/11/17 at 04:30 ; Status DC Famotidine (Pepcid) 20 mg QHS IVP Last administered on 03/10/17 20:25; Start 03/10/17 at 21:00; Stop 03/11/17 at 13:14; Status DC Potassium Chloride (Klor-Con) 40 meq 1X ONCE PO ; Start 03/10/17 at 12:15; Stop 03/10/17 at 12:16; Status DC Benztropine Mesylate (Cogentin) 1 mg BID PO Last administered on 03/12/17 08: 18; Start 03/10/17 at 13:00 Haloperidol (Haldol) 7.5 mg BID PO Last administered on 03/12/17 08:19; Start 03/10/17 at 13:00 Hydroxyzine Pamoate (Vistaril) 200 mg QHS PO Last administered on 03/11/17 20: 21; Start 03/10/17 at 21:00 Trazodone HCl (Desyrel) 150 mg QHS PO Last administered on 03/11/17 20:20; Start 03/10/17 at 21:00 Hydromorphone HCl (Dilaudid) 0.5 mg Q2H PRN IV pain Last administered on 07:43; Start 03/10/17 at 12:15; Stop 03/11/17 at 08:56; Status DC Ketorolac Tromethamine (Toradol) 30 mg PRN Q8HRS PRN IV PAIN/INFLAMMATION Last administered on 03/11/17 20:45; Start 03/10/17 at 12:15; Stop 03/13/17 at 10:00 Insulin Aspart (NovoLOG) 0-5 UNITS TIDWMEALS SQ Last administered on 03/12/17 08:35; Start 03/10/17 at 17:00 Dextrose (Dextrose 50%-Water Syringe) 12.5 gm PRN Q15MIN PRN IV SEE COMMENTS; Start 03/10/17 at 12:15 Potassium Chloride 30 meq/ Sodium Chloride 1,015 ml @ 75 mls/hr [id number] IV Last administered on 03/12/17 05:29; Start 03/10/17 at 13:00 Nicotine (Nicoderm Cq 21mg) 1 patch DAILY TD Last administered on 03/12/17 08: 20; Start 03/10/17 at 19:00 Ondansetron HCl (Zofran) 4 mg PRN Q6HRS PRN IV NAUSEA/VOMITING Last administered on 03/12/17 03:58; Start 03/10/17 at 21:00 Calcium Carbonate/ Glycine (Tums) 500 mg PRN AFTMEALHC PRN PO INDIGESTION; Start 03/11/17 at 08:30 Magnesium Sulfate/ Dextrose 50 ml @ 25 mls/hr 1X ONCE IV Last administered on 03/11/17 09:38; Start 03/11/17 at 09:00; Stop 03/11/17 at 10:59; Status DC Hydromorphone HCl (Dilaudid) 1 mg PRN Q2HRS PRN IV PAIN Last administered on 08:20; Start 03/11/17 at 10:15 Hydromorphone HCl (Dilaudid) 1 mg 1X ONCE IVP Last administered on 03/11/17 09:34; Start 03/11/17 at 09:00; Stop 03/11/17 at 09:04; Status DC Pantoprazole Sodium (Protonix) 40 mg DAILYAC PO Last administered on 03/12/17 08:18; Start 03/11/17 at 16:30 Lorazepam (Ativan) 1 mg 1X ONCE PO Last administered on 03/11/17 18:32; Start 03/11/17 at 18:30; Stop 03/11/17 at 18:31; Status DC Lorazepam (Ativan) 1 mg BID PO Last administered on 03/12/17 08:19; Start 07/18 at 21:00 Active Scripts Active Reported Trazodone Hcl 150 Mg Tablet 1 Tab PO QHS Benztropine Mesylate 1 Mg Tablet 1 Tab PO BID Haloperidol 5 Mg Tablet 7.5 Mg PO BID Hydroxyzine Hcl 50 Mg Tablet 200 Mg PO HS Trazodone Hcl 150 Mg Tablet 150 Mg PO HS Vitals/I & O Vital Sign - Last 24 Hours 03/11/17 03/11/17 03/11/17 03/11/17 09:34 10:04 10:34 12:29 Temp 98.2 98.2 Pulse 106 Resp 16 18 16 B/P (MAP) 157/116 (130) Pulse Ox 96 92 92 92 O2 Delivery Room Air Room Air Room Air Room Air 03/11/17 03/11/17 03/11/17 03/11/17 14:32 14:55 15:02 18:14 Temp 97.9 97.9 Pulse 109 Resp 16 18 B/P (MAP) 157/111 (126) Pulse Ox 92 96 96 96 O2 Delivery Room Air Room Air Room Air 03/11/17 03/11/17 03/11/17 03/12/17 19:00 20:00 22:34 00:47 Temp 98.7 98.9 98.7 98.9 Pulse 107 109 Resp 18 18 18 B/P (MAP) 163/116 (132) 149/103 (118) Pulse Ox 98 98 O2 Delivery Room Air Room Air Room Air Room Air 03/12/17 03/12/17 03/12/17 03/12/17 01:17 03:57 07:00 08:20 Temp 99.3 99.3 Pulse 116 Resp 18 18 20 B/P (MAP) 149/109 (122) Pulse Ox 93 O2 Delivery Room Air Room Air Room Air Room Air Intake and Output 03/11/17 03/11/17 03/12/17 15:00 23:00 07:00 Intake Total 360 ml 1715 ml Balance 360 ml 1715 ml MIKE FERGUSON MD Mar 12, 2017 08:44
[2017-03-12] MEDS: MULTIVIT INFUSN,ADULT 4,VIT K 10 ML, THIAMINE 100 MG, FOLIC ACID 1 MG in IV NORMAL SALI... IV SCH (09:58)
[2017-03-12 11:00] VITALS: BP 149/107
--- NOTE | 2017-03-12 12:51 | PDOC ---
Subjective: Subjective: Less pain. No n/v. Wants to advance diet. Objective: Objective: Reviewed other notes - didn't want to advance diet earlier. Per RN - sweaty earlier. Vital Signs: Vital Signs Date Time Temp Pulse Resp B/P (MAP) Pulse Ox O2 Delivery O2 Flow Rate FiO2 03/12/17 12:13 Room Air 03/12/17 11:00 98.7 103 20 149/107 (121) 95 98.7 Labs: Laboratory Tests Test 03/11/17 18:03 03/11/17 20:01 03/12/17 07:23 03/12/17 11:40 Glucose (Fingerstick) 199 mg/dL (70-99) 165 mg/dL (70-99) 166 mg/dL (70-99) 163 mg/dL (70-99) PE: GEN: NAD LUNGS: clear HEART: RRR ABD: less tender NEURO/PSYCH: A & O 3 A/P: Abd/back pain (better) H/o alcoholic pancreatitis, alcohol abuse -distended gallbladder on US, no stones, last CT in 01/2017 w/ unremarkable pancreas Elevated lipase (resolved) and LFTs -Hepatitis panel negative in 2014 Leukocytosis (improved) -- Resolving pancreatitis. Now wants to try advancing diet - d/w RN. JIMMY CLAY Mar 12, 2017 12:51
[2017-03-12] MEDS ORDERED: POLYETHYLENE GLYCOL 3350 17 GM PACKET. PO PRN (13:00)
[2017-03-12 15:00] VITALS: BP 147/102
[2017-03-12] MEDS: KETOROLAC TROMETHAMINE 30 MG/ML INJ. IV PRN (15:21)
[2017-03-12 19:00] VITALS: BP 137/89
[2017-03-12] MEDS: traZODone 50 MG TABLET. PO SCH (21:44)
[2017-03-12] MEDS: hydrOXYzine PAMOATE 25 MG CAPSULE PO SCH (21:46)
[2017-03-12 23:00] VITALS: BP 140/90
[2017-03-12] MEDS ORDERED: NICOTINE POLACRILEX 2MG GUM PACKAGE of 12. BC PRN (23:30)
[2017-03-13 03:00] VITALS: BP 144/100
[2017-03-13] MEDS: ONDANSETRON PF 4 MG/2 ML VIAL. IV PRN ×2 (03:14→11:09)
[2017-03-13] MEDS: HYDROmorphone 2 MG/ML VIAL IV PRN ×3 (03:15→14:32)
[2017-03-13] MEDS: POTASSIUM CHLORIDE 30 MEQ in IV 1/2 NORMAL SALINE 1,000 ML IV SCH (03:21)
[2017-03-13 06:58] LABS: BASO # 0.1 x10^3/uL (0.0-0.2); BASO % 1 % (0-3); EOS % 2 % (0-3); HEMOGLOBIN 12.6 g/dL (13.0-17.5); LYMPH # 1.9 x10^3/uL (1.0-4.8); LYMPH % 23 % (24-48); MEAN CORPUSCULAR HEMOGLOBIN 30 pg (25-35); MEAN CORPUSCULAR HGB CONC 34 g/dL (31-37); MEAN CORPUSCULAR VOLUME 87 fL (79-100); MONO % 15 % (0-9); NEUT % 59 % (31-73); PLATELET COUNT 134 x10^3/uL (140-400); RED BLOOD COUNT 4.27 x10^6/uL (4.30-5.70); RED CELL DISTRIBUTION WIDTH 13.3 % (11.5-14.5); WHITE BLOOD COUNT 8.2 x10^3/uL (4.0-11.0)
[2017-03-13 07:00] VITALS: BP 146/104
[2017-03-13 07:16] LABS: CALCIUM 8.8 mg/dL (8.5-10.1); CREATININE 0.7 mg/dL (0.7-1.3); GFR 132.4; MAGNESIUM 1.9 mg/dL (1.8-2.4); POTASSIUM 3.3 mmol/L (3.5-5.1)
[2017-03-13] MEDS ORDERED: oxyCODONE/APAP 5/325 1 TAB TABLET PO PRN (07:30)
[2017-03-13] MEDS: INSULIN ASPART 300 UNITS/3 ML INSULN.PEN SQ SCH ×2 (08:00→12:00)
[2017-03-13] MEDS ORDERED: POTASSIUM CHLORIDE 20 MEQ TABLET.ER. PO ONE (08:00)
--- NOTE | 2017-03-13 08:23 | PDOC3 ---
Discharge Summary Visit Information Date of Admission: Mar 11, 2017 Date of Discharge: Mar 13, 2017 Admitting Diagnosis Comment: recurrent pancreatitis. acute abd pain EtOH abuse hypokalemia Final Diagnosis Problems Medical Problems: (1) Abdominal pain Status: Acute (2) Pancreatitis Status: Acute Brief Hospital Course Allergies Allergies Coded Allergies Type Severity Reaction Last Updated Verified I S O L A T I O N *CONTACT* Allergy Unknown 07/31/15 Yes Penicillins Adverse Reaction Intermediate SEE COMMENT 07/30/15 Yes Vital Signs Vital Signs Date Time Temp Pulse Resp B/P (MAP) Pulse Ox O2 Delivery O2 Flow Rate FiO2 03/13/17 07:00 99.0 94 18 146/104 (118) 94 Room Air 99.0 Lab Results Laboratory Tests Test 03/11/17 11:10 03/11/17 18:03 03/11/17 20:01 03/12/17 06:05 Glucose (Fingerstick) 214 mg/dL (70-99) 199 mg/dL (70-99) 165 mg/dL (70-99) White Blood Count 15.8 x10^3/uL (4.0-11.0) Red Blood Count 4.73 x10^6/uL (4.30-5.70) Hemoglobin 13.9 g/dL (13.0-17.5) Hematocrit 40.5 % (39.0-53.0) Mean Corpuscular Volume 86 fL (79-100) Mean Corpuscular Hemoglobin 29 pg (25-35) Mean Corpuscular Hemoglobin Concent 34 g/dL (31-37) Red Cell Distribution Width 13.6 % (11.5-14.5) Platelet Count 124 x10^3/uL (140-400) Neutrophils (%) (Auto) 81 % (31-73) Lymphocytes (%) (Auto) 9 % (24-48) Monocytes (%) (Auto) 9 % (0-9) Eosinophils (%) (Auto) 0 % (0-3) Basophils (%) (Auto) 0 % (0-3) Neutrophils # (Auto) 12.9 x10^3uL (1.8-7.7) Lymphocytes # (Auto) 1.5 x10^3/uL (1.0-4.8) Monocytes # (Auto) 1.4 x10^3/uL (0.0-1.1) Eosinophils # (Auto) 0.1 x10^3/uL (0.0-0.7) Basophils # (Auto) 0.0 x10^3/uL (0.0-0.2) Lipase 310 U/L (73-393) Test 03/12/17 07:23 03/12/17 11:40 03/12/17 17:09 03/13/17 06:40 Glucose (Fingerstick) 166 mg/dL (70-99) 163 mg/dL (70-99) 137 mg/dL (70-99) White Blood Count 8.2 x10^3/uL (4.0-11.0) Red Blood Count 4.27 x10^6/uL (4.30-5.70) Hemoglobin 12.6 g/dL (13.0-17.5) Hematocrit 37.0 % (39.0-53.0) Mean Corpuscular Volume 87 fL (79-100) Mean Corpuscular Hemoglobin 30 pg (25-35) Mean Corpuscular Hemoglobin Concent 34 g/dL (31-37) Red Cell Distribution Width 13.3 % (11.5-14.5) Platelet Count 134 x10^3/uL (140-400) Neutrophils (%) (Auto) 59 % (31-73) Lymphocytes (%) (Auto) 23 % (24-48) Monocytes (%) (Auto) 15 % (0-9) Eosinophils (%) (Auto) 2 % (0-3) Basophils (%) (Auto) 1 % (0-3) Neutrophils # (Auto) 4.9 x10^3uL (1.8-7.7) Lymphocytes # (Auto) 1.9 x10^3/uL (1.0-4.8) Monocytes # (Auto) 1.3 x10^3/uL (0.0-1.1) Eosinophils # (Auto) 0.1 x10^3/uL (0.0-0.7) Basophils # (Auto) 0.1 x10^3/uL (0.0-0.2) Sodium Level 136 mmol/L (136-145) Potassium Level 3.3 mmol/L (3.5-5.1) Chloride Level 97 mmol/L (98-107) Carbon Dioxide Level 32 mmol/L (21-32) Anion Gap 7 (6-14) Blood Urea Nitrogen 5 mg/dL (8-26) Creatinine 0.7 mg/dL (0.7-1.3) Estimated GFR (Cockcroft-Gault) 132.4 Glucose Level 126 mg/dL (70-99) Calcium Level 8.8 mg/dL (8.5-10.1) Magnesium Level 1.9 mg/dL (1.8-2.4) Test 03/13/17 07:12 Glucose (Fingerstick) 148 mg/dL (70-99) Laboratory Tests Test 03/12/17 11:40 03/12/17 17:09 03/13/17 06:40 03/13/17 07:12 Glucose (Fingerstick) 163 mg/dL (70-99) 137 mg/dL (70-99) 148 mg/dL (70-99) White Blood Count 8.2 x10^3/uL (4.0-11.0) Red Blood Count 4.27 x10^6/uL (4.30-5.70) Hemoglobin 12.6 g/dL (13.0-17.5) Hematocrit 37.0 % (39.0-53.0) Mean Corpuscular Volume 87 fL (79-100) Mean Corpuscular Hemoglobin 30 pg (25-35) Mean Corpuscular Hemoglobin Concent 34 g/dL (31-37) Red Cell Distribution Width 13.3 % (11.5-14.5) Platelet Count 134 x10^3/uL (140-400) Neutrophils (%) (Auto) 59 % (31-73) Lymphocytes (%) (Auto) 23 % (24-48) Monocytes (%) (Auto) 15 % (0-9) Eosinophils (%) (Auto) 2 % (0-3) Basophils (%) (Auto) 1 % (0-3) Neutrophils # (Auto) 4.9 x10^3uL (1.8-7.7) Lymphocytes # (Auto) 1.9 x10^3/uL (1.0-4.8) Monocytes # (Auto) 1.3 x10^3/uL (0.0-1.1) Eosinophils # (Auto) 0.1 x10^3/uL (0.0-0.7) Basophils # (Auto) 0.1 x10^3/uL (0.0-0.2) Sodium Level 136 mmol/L (136-145) Potassium Level 3.3 mmol/L (3.5-5.1) Chloride Level 97 mmol/L (98-107) Carbon Dioxide Level 32 mmol/L (21-32) Anion Gap 7 (6-14) Blood Urea Nitrogen 5 mg/dL (8-26) Creatinine 0.7 mg/dL (0.7-1.3) Estimated GFR (Cockcroft-Gault) 132.4 Glucose Level 126 mg/dL (70-99) Calcium Level 8.8 mg/dL (8.5-10.1) Magnesium Level 1.9 mg/dL (1.8-2.4) Brief Hospital Course Mr. Reyes is a 31 old admitted for another episode of acute pancreatitis, rather mild flare. Alcohol related, Lipase normal on dc, was 941 on admit,. TOlerating PO diet, REady for home, Advised on his etoh, CO managed with GI ,. NO further recs Pt seen and examined, Dc 31 mins > 50 % counseling Rx in chart Dw [pt and RN and GI Discharge Information Condition at Discharge: Improved, Stable Disposition/Orders: D/C to Home Scheduled Benztropine Mesylate (Benztropine Mesylate), 1 TAB PO BID, (Reported) Haloperidol (Haloperidol), 7.5 MG PO BID, (Reported) Hydroxyzine Hcl (Hydroxyzine Hcl), 200 MG PO HS, (Reported) Trazodone Hcl (Trazodone Hcl), 150 MG PO HS, (Reported) Trazodone Hcl (Trazodone Hcl), 1 TAB PO QHS, (Reported) CHALINO DASILVA MD Mar 13, 2017 08:23
--- NOTE | 2017-03-13 09:12 | PDOC ---
Subjective: Subjective: Feeling better, tolerating PO w/ less abd pain. Says hopeful to quit drinking, doesn't want help/AA, wants to try on his own. Objective: Objective: D/w Dr. Boyd. Vital Signs: Vital Signs Date Time Temp Pulse Resp B/P (MAP) Pulse Ox O2 Delivery O2 Flow Rate FiO2 03/13/17 07:00 99.0 94 18 146/104 (118) 94 Room Air 99.0 Labs: Laboratory Tests Test 03/12/17 11:40 03/12/17 17:09 03/13/17 06:40 03/13/17 07:12 Glucose (Fingerstick) 163 mg/dL 137 mg/dL 148 mg/dL White Blood Count 8.2 x10^3/uL Red Blood Count 4.27 x10^6/uL Hemoglobin 12.6 g/dL Hematocrit 37.0 % Mean Corpuscular Volume 87 fL Mean Corpuscular Hemoglobin 30 pg Mean Corpuscular Hemoglobin Concent 34 g/dL Red Cell Distribution Width 13.3 % Platelet Count 134 x10^3/uL Neutrophils (%) (Auto) 59 % Lymphocytes (%) (Auto) 23 % Monocytes (%) (Auto) 15 % Eosinophils (%) (Auto) 2 % Basophils (%) (Auto) 1 % Neutrophils # (Auto) 4.9 x10^3uL Lymphocytes # (Auto) 1.9 x10^3/uL Monocytes # (Auto) 1.3 x10^3/uL Eosinophils # (Auto) 0.1 x10^3/uL Basophils # (Auto) 0.1 x10^3/uL Sodium Level 136 mmol/L Potassium Level 3.3 mmol/L Chloride Level 97 mmol/L Carbon Dioxide Level 32 mmol/L Anion Gap 7 Blood Urea Nitrogen 5 mg/dL Creatinine 0.7 mg/dL Estimated GFR (Cockcroft-Gault) 132.4 Glucose Level 126 mg/dL Calcium Level 8.8 mg/dL Magnesium Level 1.9 mg/dL PE: GEN: NAD, sitting up in bed w/ tray of pancakes and sausage LUNGS: CTAB HEART: tachycardic ABD: S/ND/NT NEURO/PSYCH: A & O 3 A/P: Alcoholic pancreatitis, alcohol abuse/withdrawal -lipase now normal, abd pain improved, tolerating PO -distended gallbladder on US, no stones, last CT in 01/2017 w/ unremarkable pancreas -elevated LFTs probably 2/2 alcohol, neg Hep panel in 2014 -leukocytosis resolved -- Plans to DC today - okay per GI. Encouraged abstinence. JIMMY CLAY Mar 13, 2017 09:12
[2017-03-13] MEDS: HALOPERIDOL 5 MG TABLET. PO SCH (09:24)
[2017-03-13] MEDS: BENZTROPINE MESYLATE 1 MG TABLET. PO SCH (09:26)
[2017-03-13] MEDS: LORazepam 1 MG TABLET PO SCH (09:26)
[2017-03-13] MEDS: MULTIVIT INFUSN,ADULT 4,VIT K 10 ML, THIAMINE 100 MG, FOLIC ACID 1 MG in IV NORMAL SALI... IV SCH (09:26)
[2017-03-13] MEDS: PANTOPRAZOLE 40 MG TABLET.DR. PO SCH (09:26)
[2017-03-13 10:39] VITALS: BP 158/106
[2017-03-13 15:03] VITALS: BP 137/95
== END 2017-03-13 15:00 | disposition home or self-care (01) | DRG 439 ==
LOC: ER 02:39 → 2 NORTH 04:18 → OBSVTOIN 11:58 → 5 NORTH 14:30
PROVIDERS: ADMIT Internal Medicine; ATTEND Internal Medicine
DX: K85.20 Alcohol induced acute pancreatitis without necrosis or infection (principal); F10.239 Alcohol dependence with withdrawal, unspecified; F17.210 Nicotine dependence, cigarettes, uncomplicated; F32.9 Major depressive disorder, single episode, unspecified; F20.9 Schizophrenia, unspecified; E87.6 Hypokalemia; F41.9 Anxiety disorder, unspecified; E86.0 Dehydration; I10 Essential (primary) hypertension; K21.9 Gastro-esophageal reflux disease without esophagitis; Y90.9 Presence of alcohol in blood, level not specified; K82.8 Other specified diseases of gallbladder; Z82.49 Family history of ischemic heart disease and other diseases of the circulatory system; Z87.81 Personal history of (healed) traumatic fracture; Z86.19 Personal history of other infectious and parasitic diseases; Z87.898 Personal history of other specified conditions; Z91.5 Personal history of self-harm; Z79.899 Other long term (current) drug therapy; Z79.1 Long term (current) use of non-steroidal anti-inflammatories (NSAID); Z79.2 Long term (current) use of antibiotics; Z88.0 Allergy status to penicillin
CPT/HCPCS: 36415; 76705; 80048; 80076; 81001; 82962; 83690; 83735; 84484; 85007; 85027; 87086; 87641; 93005; 93306; 96361; 96374; 96375; G0378; G0379; G0480; G0481; J1170; J1815; J1885; J2060; J2405; J3010; J7030; J7040; J7060; Q0162; Q0177; S0028; 99285-25

== ENCOUNTER 2017-11-20 09:37 | Inpatient (IN) | payer OTHER ==
[2017-11-20] MEDS: IV NORMAL SALINE 1000ML BAG 1,000 ML IV ×3 (10:01→16:24)
[2017-11-20 10:02] LABS: BILIRUBIN,URINE NEGATIVE (NEG); CLARITY,URINE CLEAR; COLOR,URINE YELLOW; GLUCOSE,URINE >=1000 mg/dL (NEG); NITRITE,URINE NEGATIVE (NEG); PROTEIN,URINE NEGATIVE (NEG-TRACE); UROBILINOGEN,URINE 0.2 mg/dL (0.2 mg/dL)
[2017-11-20] MEDS: fentaNYL PF VIAL 100 MCG/2 ML VIAL IV ×6 (10:02→19:29)
[2017-11-20] MEDS: FAMOTIDINE 20 MG/2 ML VIAL IVP ×3 (10:02→20:45)
[2017-11-20] MEDS: ONDANSETRON PF 4 MG/2 ML VIAL. IV ×3 (10:02→19:31)
[2017-11-20 10:09] LABS: BARBITURATES NEG (NEG); BENZODIAZEPINES NEG (NEG); CANNABINOIDS NEG (NEG); COCAINE NEG (NEG); METHADONE NEG (NEG); OPIATES NEG (NEG); PHENCYCLIDINE NEG (NEG)
[2017-11-20 10:12] LABS: ADD MAN DIFF? NO
[2017-11-20 10:14] LABS: BASO # 0.1 x10^3/uL (0.0-0.2); BASO % 1 % (0-3); EOS % 1 % (0-3); HEMATOCRIT 43.6 % (39.0-53.0); LYMPH # 1.8 x10^3/uL (1.0-4.8); LYMPH % 18 % (24-48); MEAN CORPUSCULAR HEMOGLOBIN 29 pg (25-35); MEAN CORPUSCULAR HGB CONC 34 g/dL (31-37); MEAN CORPUSCULAR VOLUME 86 fL (79-100); MONO # 0.7 x10^3/uL (0.0-1.1); MONO % 7 % (0-9); NEUT # 7.4 x10^3uL (1.8-7.7); NEUT % 74 % (31-73); PLATELET COUNT 196 x10^3/uL (140-400); RED CELL DISTRIBUTION WIDTH 15.4 % (11.5-14.5); WHITE BLOOD COUNT 9.9 x10^3/uL (4.0-11.0)
[2017-11-20 10:16] LABS: SQUAMOUS EPITHELIAL CELL,UR OCC /LPF
[2017-11-20 10:17] LABS: BACTERIA,URINE FEW /HPF (0-FEW); RBC,URINE OCC /HPF (0-2); WBC,URINE OCC /HPF (0-4)
[2017-11-20 10:23] LABS: AMPHETAMINE/METHAMPHETAMINE NEG (NEG); ETHANOL, URINE NEG (NEG)
[2017-11-20 10:26] LABS: ANION GAP 11 (6-14); BLOOD UREA NITROGEN 8 mg/dL (8-26); BUN/CREATININE RATIO 7 (6-20); CALCIUM 9.3 mg/dL (8.5-10.1); CARBON DIOXIDE 29 mmol/L (21-32); CHLORIDE 91 mmol/L (98-107); CREATININE 1.1 mg/dL (0.7-1.3); GFR 78.1; GLUCOSE 447 mg/dL (70-99); POTASSIUM 3.6 mmol/L (3.5-5.1); SODIUM 131 mmol/L (136-145)
[2017-11-20] MEDS ORDERED: CONTRAST GIVEN MC (10:30)
[2017-11-20 10:36] LABS: ALBUMIN 3.6 g/dL (3.4-5.0); ALBUMIN/GLOBULIN RATIO 1.1 (1.0-1.7); ALK PHOS 132 U/L (46-116); ALT (SGPT) 65 U/L (16-63); AST (SGOT) 43 U/L (15-37); LIPASE 1373 U/L (73-393); TOTAL BILIRUBIN 2.4 mg/dL (0.2-1.0)
[2017-11-20] MEDS: IOHEXOL 300 MG/ML 100ML VIAL. IV (10:54)
[2017-11-20] MEDS ORDERED: ONDANSETRON PF 4 MG/2 ML VIAL. IV (12:15)
[2017-11-20] MEDS ORDERED: fentaNYL PF VIAL 100 MCG/2 ML VIAL IV (12:15)
[2017-11-20] MEDS: HALOPERIDOL 5 MG TABLET. PO ×2 (13:00→20:45)
[2017-11-20 15:09] LABS: POC GLUCOSE 314 mg/dL (70-99)
[2017-11-20] MEDS: PROCHLORPERAZINE 10 MG/2 ML VIAL. IV ×2 (15:19→22:46)
[2017-11-20] MEDS: IV 1/2 NORMAL SALINE 1,000 ML IV (16:24)
[2017-11-20 17:02] LABS: POC GLUCOSE 310 mg/dL (70-99)
[2017-11-20] MEDS: MULTIVIT INFUSN,ADULT 4,VIT K 10 ML, THIAMINE 100 MG, FOLIC ACID 1 MG in IV DEXTROSE 5 ... IV (17:16)
[2017-11-20] MEDS: NICOTINE POLACRILEX 2MG GUM PACKAGE of 12. BC ×2 (17:16→20:45)
[2017-11-20] MEDS: INSULIN ASPART 300 UNITS/3 ML INSULN.PEN SQ ×2 (17:24→17:25)
[2017-11-20 20:36] LABS: POC GLUCOSE 368 mg/dL (70-99)
[2017-11-20] MEDS: oxyCODONE/APAP 5/325 1 TAB TABLET PO (20:45)
[2017-11-20] MEDS: traZODone 50 MG TABLET. PO (20:46)
[2017-11-20] MEDS: INSULIN DETEMIR 300 UNITS/3 ML INSULN.PEN. SQ (20:54)
[2017-11-20] MEDS ORDERED: traZODone 50 MG TABLET. PO (21:00)
[2017-11-20] MEDS ORDERED: BENZTROPINE MESYLATE 1 MG TABLET. PO (21:00)
[2017-11-20] MEDS ORDERED: hydrOXYzine PAMOATE 25 MG CAPSULE PO (21:00)
[2017-11-20] MEDS: MORPHINE SULFATE 4 MG/ML DISP.SYRIN. IV (22:45)
[2017-11-21] MEDS: fentaNYL PF VIAL 100 MCG/2 ML VIAL IV ×4 (01:36→16:43)
[2017-11-21] MEDS: oxyCODONE/APAP 5/325 1 TAB TABLET PO ×3 (03:28→13:30)
[2017-11-21 04:54] LABS: ADD MAN DIFF? NO
[2017-11-21 05:08] LABS: BASO # 0.1 x10^3/uL (0.0-0.2); BASO % 1 % (0-3); EOS % 1 % (0-3); HEMATOCRIT 42.2 % (39.0-53.0); HEMOGLOBIN 14.1 g/dL (13.0-17.5); LYMPH # 2.6 x10^3/uL (1.0-4.8); LYMPH % 41 % (24-48); MEAN CORPUSCULAR HEMOGLOBIN 29 pg (25-35); MEAN CORPUSCULAR HGB CONC 34 g/dL (31-37); MEAN CORPUSCULAR VOLUME 87 fL (79-100); MONO # 0.5 x10^3/uL (0.0-1.1); MONO % 8 % (0-9); NEUT # 3.2 x10^3uL (1.8-7.7); NEUT % 50 % (31-73); PLATELET COUNT 177 x10^3/uL (140-400); RED BLOOD COUNT 4.85 x10^6/uL (4.30-5.70); RED CELL DISTRIBUTION WIDTH 15.1 % (11.5-14.5); WHITE BLOOD COUNT 6.4 x10^3/uL (4.0-11.0)
[2017-11-21 05:24] LABS: LIPASE 436 U/L (73-393)
[2017-11-21 05:30] LABS: ALBUMIN 3.3 g/dL (3.4-5.0); ALBUMIN/GLOBULIN RATIO 1.1 (1.0-1.7); ALK PHOS 104 U/L (46-116); ALT (SGPT) 46 U/L (16-63); ANION GAP 11 (6-14); AST (SGOT) 22 U/L (15-37); BLOOD UREA NITROGEN 3 mg/dL (8-26); BUN/CREATININE RATIO 3 (6-20); CALCIUM 8.8 mg/dL (8.5-10.1); CARBON DIOXIDE 28 mmol/L (21-32); CHLORIDE 101 mmol/L (98-107); CREATININE 0.9 mg/dL (0.7-1.3); GFR 98.4; GLUCOSE 98 mg/dL (70-99); POTASSIUM 3.6 mmol/L (3.5-5.1); SODIUM 140 mmol/L (136-145); TOTAL BILIRUBIN 2.1 mg/dL (0.2-1.0); TOTAL PROTEIN 6.3 g/dL (6.4-8.2)
[2017-11-21] MEDS: ACETAMINOPHEN 325 MG TABLET. PO (06:09)
[2017-11-21 07:57] LABS: POC GLUCOSE 214 mg/dL (70-99)
[2017-11-21] MEDS: MULTIVIT INFUSN,ADULT 4,VIT K 10 ML, THIAMINE 100 MG, FOLIC ACID 1 MG in IV DEXTROSE 5 ... IV (08:38)
[2017-11-21] MEDS: NICOTINE POLACRILEX 2MG GUM PACKAGE of 12. BC ×2 (08:38→16:43)
[2017-11-21] MEDS: HALOPERIDOL 5 MG TABLET. PO ×3 (08:38→22:36)
[2017-11-21] MEDS: FAMOTIDINE 20 MG/2 ML VIAL IVP (08:38)
[2017-11-21] MEDS: INSULIN ASPART 300 UNITS/3 ML INSULN.PEN SQ ×6 (08:45→16:56)
[2017-11-21] MEDS ORDERED: MULTIVIT INFUSN,ADULT 4,VIT K 10 ML, THIAMINE 100 MG, FOLIC ACID 1 MG in IV DEXTROSE 5 ... IV (09:00)
[2017-11-21] MEDS ORDERED: INSULIN ASPART 300 UNITS/3 ML INSULN.PEN SQ (11:30)
[2017-11-21 11:38] LABS: POC GLUCOSE 86 mg/dL (70-99)
[2017-11-21] MEDS: ONDANSETRON PF 4 MG/2 ML VIAL. IV ×2 (11:41→19:54)
[2017-11-21 15:43] LABS: POC GLUCOSE 153 mg/dL (70-99)
[2017-11-21 16:34] LABS: POC GLUCOSE 186 mg/dL (70-99)
[2017-11-21] MEDS: oxyCODONE IR 5 MG TABLET PO (19:53)
[2017-11-21 21:11] LABS: POC GLUCOSE 189 mg/dL (70-99)
[2017-11-21] MEDS: traZODone 50 MG TABLET. PO (21:20)
[2017-11-21] MEDS: INSULIN DETEMIR 300 UNITS/3 ML INSULN.PEN. SQ (21:30)
[2017-11-21] MEDS ORDERED: LORazepam 1 MG TABLET PO (22:30)
[2017-11-21] MEDS: diphenhydrAMINE HCL 25 MG CAPSULE PO (22:35)
[2017-11-21] MEDS: LORazepam 1 MG TABLET PO (22:36)
[2017-11-22] MEDS: fentaNYL PF VIAL 100 MCG/2 ML VIAL IV (01:09)
[2017-11-22] MEDS: diphenhydrAMINE 50 MG/ML VIAL IVP ×2 (03:42→06:19)
[2017-11-22 07:24] LABS: POC GLUCOSE 73 mg/dL (70-99)
[2017-11-22] MEDS: INSULIN ASPART 300 UNITS/3 ML INSULN.PEN SQ ×6 (07:26→17:33)
[2017-11-22] MEDS: PANTOPRAZOLE 40 MG TABLET.DR. PO (08:02)
[2017-11-22] MEDS: HALOPERIDOL 5 MG TABLET. PO ×2 (08:02→21:04)
[2017-11-22] MEDS: oxyCODONE IR 5 MG TABLET PO ×2 (08:03→18:00)
[2017-11-22] MEDS: MULTIVIT INFUSN,ADULT 4,VIT K 10 ML, THIAMINE 100 MG, FOLIC ACID 1 MG in IV DEXTROSE 5 ... IV (09:27)
[2017-11-22 11:54] LABS: POC GLUCOSE 189 mg/dL (70-99)
[2017-11-22] MEDS: ACETAMINOPHEN 325 MG TABLET. PO (12:02)
[2017-11-22] MEDS: LORazepam 1 MG TABLET PO (14:27)
[2017-11-22] MEDS: oxyCODONE/APAP 5/325 1 TAB TABLET PO ×2 (14:27→21:05)
[2017-11-22] MEDS: ONDANSETRON PF 4 MG/2 ML VIAL. IV ×2 (14:27→21:05)
[2017-11-22 16:56] LABS: POC GLUCOSE 113 mg/dL (70-99)
[2017-11-22] MEDS: chlordiazePOXIDE HCL 25 MG CAPSULE PO (19:33)
[2017-11-22 20:28] LABS: POC GLUCOSE 93 mg/dL (70-99)
[2017-11-22] MEDS: INSULIN DETEMIR 300 UNITS/3 ML INSULN.PEN. SQ (21:00)
[2017-11-22] MEDS: traZODone 50 MG TABLET. PO (21:05)
[2017-11-22] MEDS: CALCIUM CARBONATE 500 MG TAB.CHEW PO (21:28)
[2017-11-23] MEDS: oxyCODONE/APAP 5/325 1 TAB TABLET PO ×3 (03:53→18:06)
[2017-11-23] MEDS: NICOTINE POLACRILEX 2MG GUM PACKAGE of 12. BC (03:57)
[2017-11-23 05:34] LABS: ADD MAN DIFF? NO
[2017-11-23 06:01] LABS: ANION GAP 9 (6-14); BLOOD UREA NITROGEN 6 mg/dL (8-26); CALCIUM 8.6 mg/dL (8.5-10.1); CARBON DIOXIDE 29 mmol/L (21-32); CHLORIDE 98 mmol/L (98-107); CREATININE 0.9 mg/dL (0.7-1.3); GFR 98.4; GLUCOSE 270 mg/dL (70-99); POTASSIUM 3.5 mmol/L (3.5-5.1); SODIUM 136 mmol/L (136-145)
[2017-11-23 06:18] LABS: BASO % 1 % (0-3); EOS # 0.1 x10^3/uL (0.0-0.7); EOS % 2 % (0-3); HEMATOCRIT 35.1 % (39.0-53.0); HEMOGLOBIN 11.9 g/dL (13.0-17.5); LYMPH # 1.9 x10^3/uL (1.0-4.8); LYMPH % 34 % (24-48); MEAN CORPUSCULAR HEMOGLOBIN 30 pg (25-35); MEAN CORPUSCULAR HGB CONC 34 g/dL (31-37); MEAN CORPUSCULAR VOLUME 88 fL (79-100); MONO # 0.5 x10^3/uL (0.0-1.1); MONO % 10 % (0-9); NEUT % 54 % (31-73); PLATELET COUNT 172 x10^3/uL (140-400); RED BLOOD COUNT 3.98 x10^6/uL (4.30-5.70); RED CELL DISTRIBUTION WIDTH 15.4 % (11.5-14.5); WHITE BLOOD COUNT 5.6 x10^3/uL (4.0-11.0)
[2017-11-23 07:34] LABS: POC GLUCOSE 299 mg/dL (70-99)
[2017-11-23] MEDS: PANTOPRAZOLE 40 MG TABLET.DR. PO (08:16)
[2017-11-23] MEDS: HALOPERIDOL 5 MG TABLET. PO ×2 (08:16→21:12)
[2017-11-23] MEDS: ONDANSETRON PF 4 MG/2 ML VIAL. IV (08:17)
[2017-11-23] MEDS: INSULIN ASPART 300 UNITS/3 ML INSULN.PEN SQ ×7 (08:21→17:27)
[2017-11-23] MEDS: MULTIVIT INFUSN,ADULT 4,VIT K 10 ML, THIAMINE 100 MG, FOLIC ACID 1 MG in IV DEXTROSE 5 ... IV (08:54)
[2017-11-23] MEDS ORDERED: POLYETHYLENE GLYCOL 3350 17 GM PACKET. PO (09:15)
[2017-11-23] MEDS ORDERED: DOCUSATE SODIUM 100 MG CAPSULE. PO (09:15)
[2017-11-23] MEDS: MAGNESIUM HYDROXIDE 2,400 MG/30 ML ORAL.SUSP. PO (09:57)
[2017-11-23] MEDS: DOCUSATE SODIUM 100 MG CAPSULE. PO (09:57)
[2017-11-23] MEDS: POLYETHYLENE GLYCOL 3350 17 GM PACKET. PO (09:57)
[2017-11-23 11:45] LABS: POC GLUCOSE 78 mg/dL (70-99)
[2017-11-23 16:29] LABS: POC GLUCOSE 344 mg/dL (70-99)
[2017-11-23 20:07] LABS: POC GLUCOSE 68 mg/dL (70-99)
[2017-11-23] MEDS: DEXTROSE 50% 25 GM / 50ML DISP.SYRIN. IV (20:07)
[2017-11-23 20:46] LABS: POC GLUCOSE 140 mg/dL (70-99)
[2017-11-23] MEDS ORDERED: INSULIN DETEMIR 300 UNITS/3 ML INSULN.PEN. SQ (21:00)
[2017-11-23] MEDS: traZODone 50 MG TABLET. PO (21:12)
[2017-11-24] MEDS: NICOTINE POLACRILEX 2MG GUM PACKAGE of 12. BC ×3 (03:57→11:06)
[2017-11-24 07:58] LABS: POC GLUCOSE 343 mg/dL (70-99)
[2017-11-24 08:31] LABS: ADD MAN DIFF? NO
[2017-11-24 08:36] LABS: BASO % 1 % (0-3); EOS # 0.1 x10^3/uL (0.0-0.7); EOS % 2 % (0-3); HEMATOCRIT 36.7 % (39.0-53.0); HEMOGLOBIN 12.3 g/dL (13.0-17.5); LYMPH # 2.1 x10^3/uL (1.0-4.8); LYMPH % 32 % (24-48); MEAN CORPUSCULAR HEMOGLOBIN 30 pg (25-35); MEAN CORPUSCULAR HGB CONC 34 g/dL (31-37); MEAN CORPUSCULAR VOLUME 89 fL (79-100); MONO # 0.6 x10^3/uL (0.0-1.1); MONO % 9 % (0-9); NEUT # 3.7 x10^3uL (1.8-7.7); NEUT % 56 % (31-73); PLATELET COUNT 203 x10^3/uL (140-400); RED BLOOD COUNT 4.15 x10^6/uL (4.30-5.70); RED CELL DISTRIBUTION WIDTH 15.5 % (11.5-14.5); WHITE BLOOD COUNT 6.6 x10^3/uL (4.0-11.0)
[2017-11-24 08:47] LABS: INR 0.9 (0.8-1.1); PROTHROMBIN TIME PATIENT 12.1 SEC (11.7-14.0)
[2017-11-24] MEDS: PANTOPRAZOLE 40 MG TABLET.DR. PO (08:56)
[2017-11-24] MEDS: MULTIVIT INFUSN,ADULT 4,VIT K 10 ML, THIAMINE 100 MG, FOLIC ACID 1 MG in IV DEXTROSE 5 ... IV (08:56)
[2017-11-24] MEDS: HALOPERIDOL 5 MG TABLET. PO (08:57)
[2017-11-24] MEDS: DOCUSATE SODIUM 100 MG CAPSULE. PO (08:57)
[2017-11-24] MEDS: oxyCODONE/APAP 5/325 1 TAB TABLET PO (08:58)
[2017-11-24 09:06] LABS: ALK PHOS 115 U/L (46-116); ALT (SGPT) 28 U/L (16-63); ANION GAP 5 (6-14); AST (SGOT) 17 U/L (15-37); BLOOD UREA NITROGEN 6 mg/dL (8-26); CALCIUM 8.4 mg/dL (8.5-10.1); CARBON DIOXIDE 29 mmol/L (21-32); CHLORIDE 97 mmol/L (98-107); CREATININE 0.9 mg/dL (0.7-1.3); DIRECT BILIRUBIN 0.1 mg/dL (0.0-0.2); GFR 98.4; GLUCOSE 382 mg/dL (70-99); LIPASE 281 U/L (73-393); POTASSIUM 4.3 mmol/L (3.5-5.1); SODIUM 131 mmol/L (136-145); TOTAL BILIRUBIN 0.3 mg/dL (0.2-1.0); TOTAL PROTEIN 6.4 g/dL (6.4-8.2)
[2017-11-24] MEDS: INSULIN ASPART 300 UNITS/3 ML INSULN.PEN SQ ×4 (09:07→12:02)
[2017-11-24 11:28] LABS: POC GLUCOSE 210 mg/dL (70-99)
[2017-11-24] MEDS: oxyCODONE IR 5 MG TABLET PO (12:11)
== END 2017-11-24 13:08 | disposition short-term general hospital (02) | DRG 438 ==
LOC: 5 NORTH 11-22 03:25 → ER 09:37 → 5 NORTH 12:10
DX: K85.90 Acute pancreatitis without necrosis or infection, unspecified (principal); G93.40 Encephalopathy, unspecified; E11.65 Type 2 diabetes mellitus with hyperglycemia; F20.9 Schizophrenia, unspecified; E87.1 Hypo-osmolality and hyponatremia; F10.10 Alcohol abuse, uncomplicated; F17.210 Nicotine dependence, cigarettes, uncomplicated; F32.9 Major depressive disorder, single episode, unspecified; F41.9 Anxiety disorder, unspecified; I10 Essential (primary) hypertension; K21.9 Gastro-esophageal reflux disease without esophagitis; K86.1 Other chronic pancreatitis; Z88.0 Allergy status to penicillin; Z79.4 Long term (current) use of insulin; Z91.5 Personal history of self-harm; Z82.49 Family history of ischemic heart disease and other diseases of the circulatory system
CPT/HCPCS: 36415; 74177; 80048; 80053; 80076; 80307; 81001; 82962; 83036; 83690; 85025; 85610; 96361; 96374; 96375; 96376; 99285-25; J0780; J1200; J1815; J2060; J2270; J2405; J3010; J7030; J7042; Q0163; Q9967; S0028

== ENCOUNTER 2017-12-16 20:23 | Emergency (ER) | payer OTHER ==
[2017-12-16] MEDS ORDERED: MORPHINE SULFATE 4 MG/ML DISP.SYRIN. IV (21:30)
[2017-12-16] MEDS ORDERED: IV NORMAL SALINE 1000ML BAG 1,000 ML IV (21:30)
[2017-12-16 21:31] LABS: ADD MAN DIFF? NO
[2017-12-16 21:33] LABS: BASO # 0.1 x10^3/uL (0.0-0.2); BASO % 1 % (0-3); EOS # 0.5 x10^3/uL (0.0-0.7); EOS % 5 % (0-3); HEMATOCRIT 47.8 % (39.0-53.0); HEMOGLOBIN 15.8 g/dL (13.0-17.5); LYMPH % 26 % (24-48); MEAN CORPUSCULAR HEMOGLOBIN 29 pg (25-35); MEAN CORPUSCULAR HGB CONC 33 g/dL (31-37); MEAN CORPUSCULAR VOLUME 87 fL (79-100); MONO # 0.9 x10^3/uL (0.0-1.1); MONO % 8 % (0-9); NEUT # 7.1 x10^3uL (1.8-7.7); NEUT % 61 % (31-73); PLATELET COUNT 300 x10^3/uL (140-400); RED BLOOD COUNT 5.49 x10^6/uL (4.30-5.70); RED CELL DISTRIBUTION WIDTH 15.6 % (11.5-14.5); WHITE BLOOD COUNT 11.6 x10^3/uL (4.0-11.0)
[2017-12-16] MEDS: ONDANSETRON PF 4 MG/2 ML VIAL. IV (21:36)
[2017-12-16] MEDS: KETOROLAC 30 MG/ML INJ. IV (21:36)
[2017-12-16] MEDS: IV NORMAL SALINE 1000ML BAG 1,000 ML IV (21:36)
[2017-12-16 21:46] LABS: ANION GAP 8 (6-14); BLOOD UREA NITROGEN 13 mg/dL (8-26); BUN/CREATININE RATIO 13 (6-20); CALCIUM 9.1 mg/dL (8.5-10.1); CARBON DIOXIDE 31 mmol/L (21-32); CHLORIDE 101 mmol/L (98-107); GFR 87.2; GLUCOSE 137 mg/dL (70-99); POTASSIUM 3.8 mmol/L (3.5-5.1); SODIUM 140 mmol/L (136-145)
[2017-12-16 21:52] LABS: ALBUMIN/GLOBULIN RATIO 1.1 (1.0-1.7); ALK PHOS 128 U/L (46-116); ALT (SGPT) 37 U/L (16-63); AST (SGOT) 25 U/L (15-37); LIPASE 702 U/L (73-393); TOTAL BILIRUBIN 0.3 mg/dL (0.2-1.0); TOTAL PROTEIN 7.6 g/dL (6.4-8.2)
[2017-12-16] MEDS: IOHEXOL 300 MG/ML 100ML VIAL. IV (22:05)
[2017-12-16 22:10] LABS: BILIRUBIN,URINE NEGATIVE (NEG); CLARITY,URINE CLEAR; COLOR,URINE YELLOW; GLUCOSE,URINE NEGATIVE (NEG); NITRITE,URINE NEGATIVE (NEG); PROTEIN,URINE NEGATIVE (NEG-TRACE); UROBILINOGEN,URINE 0.2 mg/dL (0.2 mg/dL)
[2017-12-16] MEDS ORDERED: CONTRAST GIVEN MC (22:15)
[2017-12-16 22:21] LABS: BACTERIA,URINE 0 /HPF (0-FEW); RBC,URINE 0 /HPF (0-2); SQUAMOUS EPITHELIAL CELL,UR OCC /LPF; WBC,URINE 0 /HPF (0-4)
== END 2017-12-16 23:55 | disposition home or self-care (01) ==
LOC: ER 23:55
DX: K85.90 Acute pancreatitis without necrosis or infection, unspecified (principal); I10 Essential (primary) hypertension; F20.9 Schizophrenia, unspecified; E10.9 Type 1 diabetes mellitus without complications; F10.10 Alcohol abuse, uncomplicated
CPT/HCPCS: 36415; 74177; 80053; 81001; 83690; 85025; 96361; 96374; 96375; 99285-25; J1885; J2405; J7030; Q9967

== ENCOUNTER 2018-02-05 11:05 | Inpatient (IN) | payer OTHER ==
[2018-02-05 11:23] LABS: POC GLUCOSE 394 mg/dL (70-99)
[2018-02-05] MEDS: IV NORMAL SALINE 1000ML BAG 1,000 ML IV ×4 (11:30→15:12)
[2018-02-05 12:20] LABS: BASO # 0.1 x10^3/uL (0.0-0.2); BASO % 0 % (0-3); EOS % 0 % (0-3); HEMATOCRIT 48.8 % (39.0-53.0); HEMOGLOBIN 16.4 g/dL (13.0-17.5); LYMPH # 1.3 x10^3/uL (1.0-4.8); LYMPH % 5 % (24-48); MEAN CORPUSCULAR HEMOGLOBIN 31 pg (25-35); MEAN CORPUSCULAR HGB CONC 34 g/dL (31-37); MEAN CORPUSCULAR VOLUME 92 fL (79-100); MONO # 1.7 x10^3/uL (0.0-1.1); MONO % 7 % (0-9); NEUT # 23.4 x10^3uL (1.8-7.7); NEUT % 88 % (31-73); PLATELET COUNT 250 x10^3/uL (140-400); RED BLOOD COUNT 5.28 x10^6/uL (4.30-5.70); RED CELL DISTRIBUTION WIDTH 15.8 % (11.5-14.5); WHITE BLOOD COUNT 26.5 x10^3/uL (4.0-11.0)
[2018-02-05 12:21] LABS: ADD MAN DIFF? YES
[2018-02-05 12:36] LABS: ANION GAP 28 (6-14); BLOOD UREA NITROGEN 67 mg/dL (8-26); CALCIUM 9.7 mg/dL (8.5-10.1); CARBON DIOXIDE 17 mmol/L (21-32); CHLORIDE 89 mmol/L (98-107); CREATININE 2.5 mg/dL (0.7-1.3); GFR 30.3; GLUCOSE 424 mg/dL (70-99); MAGNESIUM 2.6 mg/dL (1.8-2.4); PHOSPHORUS 6.1 mg/dL (2.6-4.7); SODIUM 134 mmol/L (136-145)
[2018-02-05 12:40] LABS: CREATINE KINASE 116 U/L (39-308)
[2018-02-05 12:41] LABS: POTASSIUM 2.9 mmol/L (3.5-5.1)
[2018-02-05 12:46] LABS: ALBUMIN 4.5 g/dL (3.4-5.0); ALK PHOS 126 U/L (46-116); ALT (SGPT) 385 U/L (16-63); AST (SGOT) 475 U/L (15-37); LIPASE 290 U/L (73-393); TOTAL BILIRUBIN 2.5 mg/dL (0.2-1.0); TOTAL PROTEIN 7.5 g/dL (6.4-8.2)
[2018-02-05 12:56] LABS: % BANDS 5 % (0-9); % LYMPHS 2 % (24-48); % MONOS 5 % (0-10); % SEGS 88 % (35-66); PLT ESTIMATE ADEQUATE (ADEQUATE)
[2018-02-05 13:06] LABS: LACTIC ACID 7.2 mmol/L (0.4-2.0)
[2018-02-05] MEDS ORDERED: ONDANSETRON PF 4 MG/2 ML VIAL. IV (13:15)
[2018-02-05 13:32] LABS: BASE EXCESS ABG -10 mmol/L (-3-3); FIO2 ABG 21; HCO3 ABG 14 mmol/L (21-28); PCO2 ABG 26 mmHg (35-46); PH ABG 7.35 (7.35-7.45); PO2 ABG 96 mmHg (85-108); SAT O2 ABG 96 % (92-99)
[2018-02-05] MEDS: ONDANSETRON PF 4 MG/2 ML VIAL. IV ×2 (13:33→21:05)
[2018-02-05] MEDS: POTASSIUM CHLORIDE 40 MEQ in IV 1/2 NORMAL SALINE 500 ML IV ×2 (13:36→16:39)
[2018-02-05] MEDS: PANTOPRAZOLE IV PUSH 40 MG VIAL. IVP (13:58)
[2018-02-05] MEDS ORDERED: DOCUSATE SODIUM 100 MG CAPSULE. PO (14:00)
[2018-02-05] MEDS ORDERED: hydrALAZINE 20 MG/ML VIAL. IVP (14:00)
[2018-02-05] MEDS: PANTOPRAZOLE SODIUM IV DRIP 80 MG in IV NORMAL SALINE 100ML 100 ML IV ×2 (14:25→21:40)
[2018-02-05] MEDS: THIAMINE 100 MG TABLET. PO (15:00)
[2018-02-05] MEDS: FOLIC ACID 1 MG TABLET. PO (15:00)
[2018-02-05 16:03] LABS: ADD MAN DIFF? NO
[2018-02-05 16:07] LABS: BASO # 0.1 x10^3/uL (0.0-0.2); BASO % 0 % (0-3); EOS % 0 % (0-3); HEMATOCRIT 37.9 % (39.0-53.0); HEMOGLOBIN 12.6 g/dL (13.0-17.5); LYMPH # 0.8 x10^3/uL (1.0-4.8); LYMPH % 3 % (24-48); MEAN CORPUSCULAR HEMOGLOBIN 31 pg (25-35); MEAN CORPUSCULAR HGB CONC 33 g/dL (31-37); MEAN CORPUSCULAR VOLUME 92 fL (79-100); MONO # 1.9 x10^3/uL (0.0-1.1); MONO % 8 % (0-9); NEUT # 20.1 x10^3uL (1.8-7.7); NEUT % 88 % (31-73); PLATELET COUNT 203 x10^3/uL (140-400); RED CELL DISTRIBUTION WIDTH 15.5 % (11.5-14.5); WHITE BLOOD COUNT 22.8 x10^3/uL (4.0-11.0)
[2018-02-05 16:24] LABS: ANION GAP 19 (6-14); BLOOD UREA NITROGEN 60 mg/dL (8-26); CALCIUM 7.3 mg/dL (8.5-10.1); CARBON DIOXIDE 19 mmol/L (21-32); CHLORIDE 99 mmol/L (98-107); CREATININE 1.7 mg/dL (0.7-1.3); GFR 47.2; GLUCOSE 368 mg/dL (70-99); SODIUM 137 mmol/L (136-145)
[2018-02-05 16:35] LABS: POC GLUCOSE 358 mg/dL (70-99)
[2018-02-05 16:35] LABS: POC GLUCOSE 387 mg/dL (70-99)
[2018-02-05] MEDS: INSULIN REGULAR VIAL 150 UNIT in 0.9 % SODIUM CHLORIDE 150ML 150 ML IV (17:06)
[2018-02-05 17:32] LABS: PHOSPHORUS 2.5 mg/dL (2.6-4.7)
[2018-02-05 18:12] LABS: POC GLUCOSE 291 mg/dL (70-99)
[2018-02-05 18:29] LABS: BILIRUBIN,URINE SMALL (NEG); CLARITY,URINE CLOUDY; COLOR,URINE YELLOW; GLUCOSE,URINE >=1000 mg/dL (NEG); NITRITE,URINE NEGATIVE (NEG); PH,URINE 5.5; PROTEIN,URINE NEGATIVE (NEG-TRACE)
[2018-02-05 18:36] LABS: AMORPHOUS SEDIMENT,UR PRESENT /HPF; BACTERIA,URINE 0 /HPF (0-FEW); RBC,URINE RARE /HPF (0-2); SQUAMOUS EPITHELIAL CELL,UR FEW /LPF; WBC,URINE RARE /HPF (0-4)
[2018-02-05 19:15] LABS: POC GLUCOSE 204 mg/dL (70-99)
[2018-02-05 19:16] LABS: BARBITURATES NEG (NEG); BENZODIAZEPINES NEG (NEG); CANNABINOIDS NEG (NEG); COCAINE NEG (NEG); METHADONE NEG (NEG); OPIATES POS (NEG); PHENCYCLIDINE POS (NEG)
[2018-02-05 19:17] LABS: AMPHETAMINE/METHAMPHETAMINE NEG (NEG); ETHANOL, URINE NEG (NEG)
[2018-02-05] MEDS: IV DEXTROSE 5% - 0.9 % NACL 1,000 ML IV (19:30)
[2018-02-05 20:18] LABS: POC GLUCOSE 155 mg/dL (70-99)
[2018-02-05 20:46] LABS: ANION GAP 12 (6-14); BLOOD UREA NITROGEN 45 mg/dL (8-26); CALCIUM 7.5 mg/dL (8.5-10.1); CARBON DIOXIDE 21 mmol/L (21-32); CHLORIDE 105 mmol/L (98-107); CREATININE 1.3 mg/dL (0.7-1.3); GFR 64.4; GLUCOSE 152 mg/dL (70-99); MAGNESIUM 1.8 mg/dL (1.8-2.4); PHOSPHORUS 1.7 mg/dL (2.6-4.7); POTASSIUM 3.3 mmol/L (3.5-5.1); SODIUM 138 mmol/L (136-145)
[2018-02-05 21:11] LABS: MRSA BY PCR Negative (Negative)
[2018-02-05 21:18] LABS: POC GLUCOSE 181 mg/dL (70-99)
[2018-02-05] MEDS: traZODone 50 MG TABLET. PO (21:39)
[2018-02-05] MEDS: HALOPERIDOL 5 MG TABLET. PO (21:39)
[2018-02-05] MEDS: MIRTAZAPINE 15 MG TABLET PO (21:39)
[2018-02-05] MEDS: INSULIN GLARGINE 300 UNITS/3 ML INSULN.PEN. SQ (21:40)
[2018-02-05] MEDS: MORPHINE SULFATE 2 MG/ML DISP.SYRIN. IV (23:19)
[2018-02-05 23:29] LABS: POC GLUCOSE 129 mg/dL (70-99)
[2018-02-06] MEDS: NICOTINE 21MG PATCH. TD (00:32)
[2018-02-06 05:16] LABS: ADD MAN DIFF? NO
[2018-02-06 05:50] LABS: ANION GAP 11 (6-14); BLOOD UREA NITROGEN 31 mg/dL (8-26); CALCIUM 7.5 mg/dL (8.5-10.1); CARBON DIOXIDE 22 mmol/L (21-32); CHLORIDE 106 mmol/L (98-107); CREATININE 1.1 mg/dL (0.7-1.3); GFR 78.1; GLUCOSE 160 mg/dL (70-99); SODIUM 139 mmol/L (136-145)
[2018-02-06 05:57] LABS: POTASSIUM 2.9 mmol/L (3.5-5.1)
[2018-02-06 06:11] LABS: BASO # 0.1 x10^3/uL (0.0-0.2); BASO % 1 % (0-3); EOS # 0.2 x10^3/uL (0.0-0.7); EOS % 2 % (0-3); HEMATOCRIT 27.7 % (39.0-53.0); HEMOGLOBIN 9.4 g/dL (13.0-17.5); LYMPH # 1.9 x10^3/uL (1.0-4.8); LYMPH % 13 % (24-48); MEAN CORPUSCULAR HEMOGLOBIN 31 pg (25-35); MEAN CORPUSCULAR HGB CONC 34 g/dL (31-37); MEAN CORPUSCULAR VOLUME 91 fL (79-100); MONO # 0.9 x10^3/uL (0.0-1.1); MONO % 6 % (0-9); NEUT # 11.5 x10^3uL (1.8-7.7); NEUT % 79 % (31-73); PLATELET COUNT 156 x10^3/uL (140-400); RED BLOOD COUNT 3.05 x10^6/uL (4.30-5.70); RED CELL DISTRIBUTION WIDTH 15.7 % (11.5-14.5); WHITE BLOOD COUNT 14.7 x10^3/uL (4.0-11.0)
[2018-02-06 06:33] LABS: LACTIC ACID 0.8 mmol/L (0.4-2.0)
[2018-02-06] MEDS ORDERED: POTASSIUM CHLORIDE 20MEQ 50 ML IV (07:00)
[2018-02-06] MEDS: PANTOPRAZOLE SODIUM IV DRIP 80 MG in IV NORMAL SALINE 100ML 100 ML IV ×2 (07:54→16:06)
[2018-02-06] MEDS: IV NORMAL SALINE 1000ML BAG 1,000 ML IV ×3 (07:54→23:09)
[2018-02-06] MEDS: THIAMINE 100 MG TABLET. PO (07:55)
[2018-02-06] MEDS: HALOPERIDOL 5 MG TABLET. PO ×2 (07:55→21:23)
[2018-02-06] MEDS: FOLIC ACID 1 MG TABLET. PO (07:55)
[2018-02-06] MEDS: INSULIN LISPRO 300 UNITS/3 ML INSULN.PEN. SQ ×3 (07:55→16:09)
[2018-02-06] MEDS: POTASSIUM CHLORIDE 10MEQ 100 ML IV ×4 (07:55→09:45)
[2018-02-06 08:07] LABS: POC GLUCOSE 169 mg/dL (70-99)
[2018-02-06 11:45] LABS: POC GLUCOSE 190 mg/dL (70-99)
[2018-02-06 12:18] LABS: EBNA IGG 32.7 U/mL (0.0-17.9)
[2018-02-06 15:17] LABS: POC GLUCOSE 207 mg/dL (70-99)
[2018-02-06 19:49] LABS: POC GLUCOSE 205 mg/dL (70-99)
[2018-02-06] MEDS: traZODone 50 MG TABLET. PO (21:23)
[2018-02-06] MEDS: MIRTAZAPINE 15 MG TABLET PO (21:24)
[2018-02-07 00:54] LABS: POC GLUCOSE 340 mg/dL (70-99)
[2018-02-07 04:43] LABS: ALBUMIN 2.4 g/dL (3.4-5.0); ALBUMIN/GLOBULIN RATIO 1.1 (1.0-1.7); ALK PHOS 67 U/L (46-116); ANION GAP 9 (6-14); AST (SGOT) 800 U/L (15-37); BLOOD UREA NITROGEN 13 mg/dL (8-26); BUN/CREATININE RATIO 16 (6-20); CALCIUM 7.5 mg/dL (8.5-10.1); CARBON DIOXIDE 27 mmol/L (21-32); CHLORIDE 104 mmol/L (98-107); CREATININE 0.8 mg/dL (0.7-1.3); GFR 112.8; GLUCOSE 321 mg/dL (70-99); POTASSIUM 3.1 mmol/L (3.5-5.1); SODIUM 140 mmol/L (136-145); TOTAL PROTEIN 4.6 g/dL (6.4-8.2)
[2018-02-07] MEDS: PANTOPRAZOLE SODIUM IV DRIP 80 MG in IV NORMAL SALINE 100ML 100 ML IV ×3 (04:44→20:36)
[2018-02-07 05:04] LABS: ALT (SGPT) 1198 U/L (16-63)
[2018-02-07 07:41] LABS: POC GLUCOSE 286 mg/dL (70-99)
[2018-02-07] MEDS: HALOPERIDOL 5 MG TABLET. PO ×2 (07:48→20:35)
[2018-02-07] MEDS: THIAMINE 100 MG TABLET. PO (07:48)
[2018-02-07] MEDS: FOLIC ACID 1 MG TABLET. PO (07:48)
[2018-02-07] MEDS: INSULIN LISPRO 300 UNITS/3 ML INSULN.PEN. SQ ×3 (07:51→16:02)
[2018-02-07 11:05] LABS: ADD MAN DIFF? NO
[2018-02-07 11:16] LABS: BASO # 0.1 x10^3/uL (0.0-0.2); BASO % 1 % (0-3); EOS # 0.3 x10^3/uL (0.0-0.7); EOS % 4 % (0-3); HEMATOCRIT 24.6 % (39.0-53.0); HEMOGLOBIN 8.4 g/dL (13.0-17.5); LYMPH # 1.4 x10^3/uL (1.0-4.8); LYMPH % 17 % (24-48); MEAN CORPUSCULAR HEMOGLOBIN 32 pg (25-35); MEAN CORPUSCULAR HGB CONC 34 g/dL (31-37); MEAN CORPUSCULAR VOLUME 93 fL (79-100); MONO # 0.6 x10^3/uL (0.0-1.1); MONO % 7 % (0-9); NEUT # 5.9 x10^3uL (1.8-7.7); NEUT % 71 % (31-73); PLATELET COUNT 145 x10^3/uL (140-400); RED BLOOD COUNT 2.65 x10^6/uL (4.30-5.70); RED CELL DISTRIBUTION WIDTH 16.3 % (11.5-14.5); WHITE BLOOD COUNT 8.3 x10^3/uL (4.0-11.0)
[2018-02-07 11:41] LABS: POC GLUCOSE 246 mg/dL (70-99)
[2018-02-07 12:36] LABS: MAGNESIUM 1.9 mg/dL (1.8-2.4)
[2018-02-07] MEDS: IV NORMAL SALINE 1000ML BAG 1,000 ML IV (13:07)
[2018-02-07] MEDS: POTASSIUM CHLORIDE 20 MEQ TABLET.ER. PO (13:08)
[2018-02-07] MEDS: NICOTINE 21MG PATCH. TD (13:08)
[2018-02-07 15:06] LABS: POC GLUCOSE 281 mg/dL (70-99)
[2018-02-07 15:21] LABS: FECAL OB PT POSITIVE (NEG); NEG OBC FOB NEG; POS OBC FOB POS
[2018-02-07 15:45] LABS: CREATINE KINASE 116 U/L (39-308)
[2018-02-07] MEDS: MIRTAZAPINE 15 MG TABLET PO (20:35)
[2018-02-07] MEDS: traZODone 50 MG TABLET. PO (20:35)
[2018-02-07] MEDS: INSULIN GLARGINE 300 UNITS/3 ML INSULN.PEN. SQ (20:38)
[2018-02-07] MEDS: HYDROcodone/APAP 5/325MG 1 TAB TABLET PO (20:40)
[2018-02-07 20:56] LABS: POC GLUCOSE 241 mg/dL (70-99)
[2018-02-07] MEDS: traMADol 50 MG TABLET PO (21:39)
[2018-02-08 06:31] LABS: ADD MAN DIFF? NO
[2018-02-08 06:38] LABS: BASO # 0.1 x10^3/uL (0.0-0.2); BASO % 1 % (0-3); EOS # 0.2 x10^3/uL (0.0-0.7); EOS % 3 % (0-3); HEMATOCRIT 27.7 % (39.0-53.0); HEMOGLOBIN 9.5 g/dL (13.0-17.5); LYMPH # 1.8 x10^3/uL (1.0-4.8); LYMPH % 33 % (24-48); MEAN CORPUSCULAR HEMOGLOBIN 32 pg (25-35); MEAN CORPUSCULAR HGB CONC 34 g/dL (31-37); MEAN CORPUSCULAR VOLUME 92 fL (79-100); MONO # 0.3 x10^3/uL (0.0-1.1); MONO % 6 % (0-9); NEUT # 3.1 x10^3uL (1.8-7.7); NEUT % 56 % (31-73); PLATELET COUNT 176 x10^3/uL (140-400); RED CELL DISTRIBUTION WIDTH 16.1 % (11.5-14.5); WHITE BLOOD COUNT 5.5 x10^3/uL (4.0-11.0)
[2018-02-08 06:54] LABS: % SAT IRON 11 % (15-34); IRON,SERUM 24 ug/dL (65-175)
[2018-02-08 07:08] LABS: FERRITIN 128 ng/mL (26-388)
[2018-02-08 07:13] LABS: ALBUMIN 2.6 g/dL (3.4-5.0); ALK PHOS 92 U/L (46-116); ALT (SGPT) 837 U/L (16-63); ANION GAP 7 (6-14); AST (SGOT) 172 U/L (15-37); BLOOD UREA NITROGEN 3 mg/dL (8-26); CALCIUM 8.4 mg/dL (8.5-10.1); CARBON DIOXIDE 29 mmol/L (21-32); CHLORIDE 106 mmol/L (98-107); CREATININE 0.7 mg/dL (0.7-1.3); DIRECT BILIRUBIN 0.4 mg/dL (0.0-0.2); GFR 131.5; GLUCOSE 345 mg/dL (70-99); MAGNESIUM 1.8 mg/dL (1.8-2.4); SODIUM 142 mmol/L (136-145); TOTAL BILIRUBIN 0.8 mg/dL (0.2-1.0); TOTAL PROTEIN 5.4 g/dL (6.4-8.2)
[2018-02-08 07:52] LABS: POC GLUCOSE 335 mg/dL (70-99)
[2018-02-08] MEDS: PANTOPRAZOLE SODIUM IV DRIP 80 MG in IV NORMAL SALINE 100ML 100 ML IV (08:10)
[2018-02-08] MEDS: HALOPERIDOL 5 MG TABLET. PO ×2 (08:11→20:32)
[2018-02-08] MEDS: THIAMINE 100 MG TABLET. PO (08:11)
[2018-02-08] MEDS: FOLIC ACID 1 MG TABLET. PO (08:11)
[2018-02-08] MEDS: INSULIN LISPRO 300 UNITS/3 ML INSULN.PEN. SQ ×6 (08:13→20:37)
[2018-02-08] MEDS: NICOTINE 21MG PATCH. TD (08:15)
[2018-02-08] MEDS: IRON SUCROSE COMPLEX 500 MG in IV NORMAL SALINE 250ML 250 ML IV (14:35)
[2018-02-08 14:50] LABS: POC GLUCOSE 213 mg/dL (70-99)
[2018-02-08] MEDS: POTASSIUM CHLORIDE 20 MEQ TABLET.ER. PO (16:13)
[2018-02-08 17:04] LABS: POC GLUCOSE 305 mg/dL (70-99)
[2018-02-08 19:46] LABS: POC GLUCOSE 335 mg/dL (70-99)
[2018-02-08] MEDS: MIRTAZAPINE 15 MG TABLET PO (20:32)
[2018-02-08] MEDS: traZODone 50 MG TABLET. PO (20:32)
[2018-02-08] MEDS: ACETAMINOPHEN 325 MG TABLET. PO (20:32)
[2018-02-08] MEDS: INSULIN GLARGINE 300 UNITS/3 ML INSULN.PEN. SQ (20:38)
[2018-02-08] MEDS: traMADol 50 MG TABLET PO (20:39)
[2018-02-09 04:47] LABS: ADD MAN DIFF? NO
[2018-02-09 04:56] LABS: BASO % 1 % (0-3); EOS # 0.1 x10^3/uL (0.0-0.7); EOS % 1 % (0-3); HEMOGLOBIN 8.6 g/dL (13.0-17.5); LYMPH # 1.8 x10^3/uL (1.0-4.8); LYMPH % 28 % (24-48); MEAN CORPUSCULAR HEMOGLOBIN 32 pg (25-35); MEAN CORPUSCULAR HGB CONC 34 g/dL (31-37); MEAN CORPUSCULAR VOLUME 92 fL (79-100); MONO # 0.6 x10^3/uL (0.0-1.1); MONO % 9 % (0-9); NEUT % 61 % (31-73); PLATELET COUNT 183 x10^3/uL (140-400); RED BLOOD COUNT 2.71 x10^6/uL (4.30-5.70); RED CELL DISTRIBUTION WIDTH 16.2 % (11.5-14.5); WHITE BLOOD COUNT 6.5 x10^3/uL (4.0-11.0)
[2018-02-09 05:25] LABS: ANION GAP 7 (6-14); BLOOD UREA NITROGEN 3 mg/dL (8-26); CALCIUM 7.7 mg/dL (8.5-10.1); CARBON DIOXIDE 31 mmol/L (21-32); CHLORIDE 105 mmol/L (98-107); CREATININE 0.5 mg/dL (0.7-1.3); GFR 193.9; GLUCOSE 217 mg/dL (70-99); SODIUM 143 mmol/L (136-145)
[2018-02-09 05:30] LABS: POTASSIUM 2.8 mmol/L (3.5-5.1)
[2018-02-09] MEDS: POTASSIUM CL 40MEQ IN 0.9%NACL 1,000 ML IV ×2 (05:55→17:09)
[2018-02-09] MEDS: PANTOPRAZOLE 40 MG TABLET.DR. PO ×2 (07:30→17:09)
[2018-02-09 07:31] LABS: POC GLUCOSE 157 mg/dL (70-99)
[2018-02-09] MEDS: INSULIN LISPRO 300 UNITS/3 ML INSULN.PEN. SQ ×6 (07:45→17:11)
[2018-02-09] MEDS: THIAMINE 100 MG TABLET. PO (07:46)
[2018-02-09] MEDS: FOLIC ACID 1 MG TABLET. PO (07:46)
[2018-02-09] MEDS: HALOPERIDOL 5 MG TABLET. PO ×2 (07:46→20:40)
[2018-02-09 08:59] LABS: VITAMIN-B12 1514 pg/mL (247-911)
[2018-02-09 08:59] LABS: FOLATE 11.23 ng/ml (3.2-20.0)
[2018-02-09 11:30] LABS: POC GLUCOSE 60 mg/dL (70-99)
[2018-02-09] MEDS: DEXTROSE 50% 25 GM / 50ML DISP.SYRIN. IV (11:38)
[2018-02-09 12:19] LABS: POC GLUCOSE 102 mg/dL (70-99)
[2018-02-09] MEDS: IV RINGERS,LACTATED 1000ML 1,000 ML IV (13:15)
[2018-02-09] MEDS ORDERED: PROPOFOL 20 ML IV (13:33)
[2018-02-09] MEDS ORDERED: LIDOCAINE 2% PF Vial for OR 5 ML VIAL. (13:33)
[2018-02-09 17:15] LABS: POC GLUCOSE 267 mg/dL (70-99)
[2018-02-09] MEDS: ONDANSETRON PF 4 MG/2 ML VIAL. IV (18:22)
[2018-02-09] MEDS: traZODone 50 MG TABLET. PO (20:40)
[2018-02-09] MEDS: MIRTAZAPINE 15 MG TABLET PO (20:40)
[2018-02-09] MEDS: INSULIN GLARGINE 300 UNITS/3 ML INSULN.PEN. SQ (21:16)
[2018-02-09] MEDS: traMADol 50 MG TABLET PO (22:23)
[2018-02-10 02:17] LABS: HEMOGLOBIN A1C 9.4 % (4.8-5.6)
[2018-02-10 05:06] LABS: POC GLUCOSE 130 mg/dL (70-99)
[2018-02-10] MEDS: INSULIN LISPRO 300 UNITS/3 ML INSULN.PEN. SQ ×6 (07:30→17:16)
[2018-02-10 07:43] LABS: POC GLUCOSE 68 mg/dL (70-99)
[2018-02-10 07:43] LABS: POC GLUCOSE 66 mg/dL (70-99)
[2018-02-10] MEDS: PANTOPRAZOLE 40 MG TABLET.DR. PO ×2 (07:49→17:13)
[2018-02-10] MEDS: HALOPERIDOL 5 MG TABLET. PO (09:03)
[2018-02-10] MEDS: THIAMINE 100 MG TABLET. PO (09:03)
[2018-02-10] MEDS: FOLIC ACID 1 MG TABLET. PO (09:03)
[2018-02-10] MEDS: traMADol 50 MG TABLET PO (09:07)
[2018-02-10 09:20] LABS: POC GLUCOSE 230 mg/dL (70-99)
[2018-02-10 10:50] LABS: POC GLUCOSE 276 mg/dL (70-99)
[2018-02-10 11:50] LABS: POC GLUCOSE 269 mg/dL (70-99)
[2018-02-10] MEDS: IV RINGERS,LACTATED 1000ML 1,000 ML IV (13:15)
[2018-02-10] MEDS: MORPHINE SULFATE 2 MG/ML DISP.SYRIN. IV (14:20)
[2018-02-10 17:10] LABS: POC GLUCOSE 229 mg/dL (70-99)
== END 2018-02-10 19:10 | disposition home or self-care (01) | DRG 380 ==
LOC: 6 SOUTH 02-06 12:28 → ER 11:05 → 1 WEST ICU 13:00
PROVIDERS: Internal Medicine
PROC: 0DB68ZX Excision of Stomach, Via Natural or Artificial Opening Endoscopic, Diagnostic (ICD-10-PCS; principal; 2018-02-09 13:30)
DX: K22.10 Ulcer of esophagus without bleeding (principal); N17.0 Acute kidney failure with tubular necrosis; E10.10 Type 1 diabetes mellitus with ketoacidosis without coma; K26.3 Acute duodenal ulcer without hemorrhage or perforation; F19.20 Other psychoactive substance dependence, uncomplicated; D62 Acute posthemorrhagic anemia; E86.0 Dehydration; E87.6 Hypokalemia; D64.9 Anemia, unspecified; E10.649 Type 1 diabetes mellitus with hypoglycemia without coma; F10.20 Alcohol dependence, uncomplicated; F17.210 Nicotine dependence, cigarettes, uncomplicated; F20.9 Schizophrenia, unspecified; F32.9 Major depressive disorder, single episode, unspecified; F41.9 Anxiety disorder, unspecified; I10 Essential (primary) hypertension; K21.0 Gastro-esophageal reflux disease with esophagitis; W18.30XA Fall on same level, unspecified, initial encounter; R74.0 Nonspecific elevation of levels of transaminase and lactic acid dehydrogenase [LDH]; D72.829 Elevated white blood cell count, unspecified; Z79.899 Other long term (current) drug therapy; Z82.49 Family history of ischemic heart disease and other diseases of the circulatory system; Z91.14 Patient's other noncompliance with medication regimen; Z91.19 Patient's noncompliance with other medical treatment and regimen; Z91.5 Personal history of self-harm; Z87.81 Personal history of (healed) traumatic fracture; Y93.89 Activity, other specified; Y92.481 Parking lot as the place of occurrence of the external cause; Y99.8 Other external cause status
CPT/HCPCS: 36415; 36600; 70450; 71045; 72125; 76705; 80048; 80053; 80076; 80307; 81001; 82274; 82550; 82607; 82728; 82746; 82805; 82962; 83036; 83540; 83550; 83605; 83690; 83735; 84100; 85007; 85025; 86644; 86645; 86663; 86664; 86850; 86900; 86901; 87040; 87641; 88305; 88342; 93005; 96361; 96365; 96375; 99285; 99285-25; C9113; J1756; J1815; J2060; J2270; J2405; J2704; J3480; J7030; J7042; J7050; J7120

== ENCOUNTER 2018-05-17 15:41 | Inpatient (IN) | payer OTHER ==
[~2018-05-17] VITALS: Ht 195.6 cm; Wt 106.8 kg
[~2018-05-17 15:41] MED LIST changes: +BENZ1TAB5 PO; +FOLI1TAB16 PO; +INSU100I11 SQ; +INSU100I13 SQ; +LISI-130 PO; -LISI40TA PO; +MIRT30TA3 PO
[2018-05-17] MEDS ORDERED: IV NORMAL SALINE 1000ML BAG 1,000 ML IV SCH (17:53)
--- NOTE | 2018-05-17 17:58 | PHYS DOC ---
Past Medical History Past Medical History: Diabetes-Type I, Hypertension, Pancreatitis, Seizure, Schizophrenia, Other Additional Past Medical Histor: sepsis, intubation Past Surgical History: Other Additional Past Surgical Histo: ORAL SURGERY, peritonsillar abcess drained Alcohol Use: Heavy Drug Use: Other Adult General Chief Complaint Chief Complaint: ABDOMINAL PAIN HPI HPI Patient is a 32 year old male who presents complaining of abdominal pain that started today and is accompanied by one episode of vomiting blood that happened this morning. He reports, look like coffee grounds. He reports that he also had 2 stools that were black today. He reports he is a daily drinker with his last drink being yesterday when he consumed five 24 ounce beers. He reports he's been drinking more heavily over the past week. He reports a history of diabetes type 1, pancreatitis, schizoaffective disorder. also a daily smoker. Denies any chest pain, shortness of air, palpitations, syncope, or chills. Review of Systems Review of Systems Constitutional: Denies fever or chills Eyes: Denies change in visual acuity, redness, or eye pain HENT: Denies nasal congestion or sore throat Respiratory: Denies cough or shortness of breath Cardiovascular: Denies chest, palpitations or edema. GI: Denies abdominal pain, nausea, vomiting, bloody stools or diarrhea [] : Denies dysuria or hematuria [] Musculoskeletal: Denies back pain or joint pain [] Integument: Denies rash or skin lesions [] Neurologic: Denies headache, focal weakness or sensory changes [] Endocrine: Denies polyuria or polydipsia [] All other systems were reviewed and found to be within normal limits, except as documented in this note. Current Medications Current Medications Current Medications Medications (Trade) Dose Ordered Sig/Jamey Start Time Stop Time Status Last Admin Dose Admin Chlordiazepoxide (Librium) 25 mg PRN Q6HRS PRN 05/17/18 21:15 Clonidine HCl (Catapres) 0.1 mg PRN Q1HR PRN 05/17/18 21:15 Dextrose (Dextrose 50%-Water Syringe) 12.5 gm PRN Q15MIN PRN 05/17/18 21:15 Fentanyl Citrate (Fentanyl 2ml Vial) 50 mcg 1X ONCE 05/17/18 21:00 05/17/18 21:01 DC 05/17/18 20:54 50 MCG Info (CONTRAST GIVEN -- Rx MONITORING) 1 each PRN DAILY PRN 05/17/18 18:45 05/19/18 18:44 Iohexol (Omnipaque 300 Mg/ml) 75 ml 1X ONCE 05/17/18 18:45 05/17/18 18:46 DC 05/17/18 19:10 75 ML Lorazepam (Ativan) 1 mg PRN Q4HRS PRN 05/17/18 20:45 Multivitamins 10 ml/Thiamine HCl 100 mg/Folic Acid 1 mg/Sodium Chloride 1,011.2 ml @ 1,000.088 mls/hr 1X ONCE 05/17/18 20:00 05/17/18 21:00 DC 05/17/18 20:17 1,000.088 MLS/HR Nicotine (Nicoderm Cq 21mg) 1 patch PRN DAILY PRN 05/17/18 21:15 Ondansetron HCl (Zofran Odt) 4 mg PRN Q4HRS PRN 05/17/18 21:15 Ondansetron HCl (Zofran) 4 mg PRN Q6HRS PRN 05/17/18 21:15 Oxycodone/ Acetaminophen (Percocet 5/325) 1 tab PRN Q4HRS PRN 05/17/18 21:15 Pantoprazole Sodium (PROTONIX VIAL for IV PUSH) 40 mg 1X ONCE 05/17/18 18:00 05/17/18 18:01 DC 05/17/18 18:42 40 MG Sodium Chloride 1,000 ml @ 1,000 mls/hr Q1H 05/17/18 17:53 05/17/18 18:52 DC 05/17/18 18:43 1,000 MLS/HR Zolpidem Tartrate (Ambien) 5 mg PRN QHS PRN 05/17/18 21:15 05/17/18 21:15 DC Allergies Allergies Allergies Coded Allergies Type Severity Reaction Last Updated Verified No Known Drug Allergies 02/09/18 No Physical Exam Physical Exam Constitutional: Well developed, well nourished, no acute distress, non-toxic appearance. HENT: Normocephalic, atraumatic, bilateral external ears normal, oropharynx moist, no oral exudates, nose normal. Eyes: PERRLA, EOMI, conjunctiva normal, no discharge. Neck: Normal range of motion, no midline tenderness, supple, no stridor. Cardiovascular: Sinus tachycardia, no murmur Lungs & Thorax: Bilateral breath sounds clear to auscultation Abdomen: Bowel sounds normal, soft, no rebound, no masses, no pulsatile masses. Diffuse tenderness Rectum: No hemorrhoids, fissures, masses. No obvious blood on exam. Normal rectal tone. Skin: Warm, dry, no erythema, no rash. Back: No tenderness, no CVA tenderness. Extremities: No tenderness, no cyanosis, no clubbing, ROM intact, no edema. Neurologic: Alert and oriented X 3, normal motor function, normal sensory function, no focal deficits noted. Psychologic: Affect normal, judgement normal, mood normal. [] Current Patient Data Vital Signs Vital Signs Date Time Temp Pulse Resp B/P (MAP) Pulse Ox O2 Delivery O2 Flow Rate FiO2 05/17/18 21:23 113 18 117/73 (88) 97 Room Air 05/17/18 18:00 98.9 98.9 Lab Values Laboratory Tests Test 05/17/18 17:55 05/17/18 18:01 05/17/18 18:30 Urine Collection Type Unknown Urine Color Baylee Urine Clarity Clear Urine pH 5.5 Urine Specific [place] >=1.030 Urine Protein Negative mg/dL (NEG-TRACE) Urine Glucose (UA) Negative mg/dL (NEG) Urine Ketones (Stick) >=80 mg/dL (NEG) Urine Blood Negative (NEG) Urine Nitrite Negative (NEG) Urine Bilirubin Small (NEG) Urine Urobilinogen Dipstick 0.2 mg/dL (0.2 mg/dL) Urine Leukocyte Esterase Negative (NEG) Urine RBC 0 /HPF (0-2) Urine WBC 0 /HPF (0-4) Urine Bacteria 0 /HPF (0-FEW) Urine Mucus Mod /LPF Urine Opiates Screen Neg (NEG) Urine Methadone Screen Neg (NEG) Urine Barbiturates Neg (NEG) Urine Phencyclidine Screen Neg (NEG) Urine Amphetamine/Methamphetamine Neg (NEG) Urine Benzodiazepines Screen Neg (NEG) Urine Cocaine Screen Neg (NEG) Urine Cannabinoids Screen Neg (NEG) Urine Ethyl Alcohol Neg (NEG) Stool Occult Blood Positive (NEG) White Blood Count 11.2 x10^3/uL (4.0-11.0) H Red Blood Count 4.77 x10^6/uL (4.30-5.70) Hemoglobin 12.4 g/dL (13.0-17.5) L Hematocrit 37.7 % (39.0-53.0) L Mean Corpuscular Volume 79 fL (79-100) Mean Corpuscular Hemoglobin 26 pg (25-35) Mean Corpuscular Hemoglobin Concent 33 g/dL (31-37) Red Cell Distribution Width 21.0 % (11.5-14.5) H Platelet Count 301 x10^3/uL (140-400) Neutrophils (%) (Auto) 81 % (31-73) H Lymphocytes (%) (Auto) 11 % (24-48) L Monocytes (%) (Auto) 7 % (0-9) Eosinophils (%) (Auto) 0 % (0-3) Basophils (%) (Auto) 1 % (0-3) Neutrophils # (Auto) 9.0 x10^3uL (1.8-7.7) H Lymphocytes # (Auto) 1.2 x10^3/uL (1.0-4.8) Monocytes # (Auto) 0.8 x10^3/uL (0.0-1.1) Eosinophils # (Auto) 0.0 x10^3/uL (0.0-0.7) Basophils # (Auto) 0.1 x10^3/uL (0.0-0.2) Platelet Estimate Adequate (ADEQUATE) Poikilocytosis Slight Anisocytosis Mod Sodium Level 135 mmol/L (136-145) L Potassium Level 4.1 mmol/L (3.5-5.1) Chloride Level 96 mmol/L (98-107) L Carbon Dioxide Level 26 mmol/L (21-32) Anion Gap 13 (6-14) Blood Urea Nitrogen 20 mg/dL (8-26) Creatinine 0.8 mg/dL (0.7-1.3) Estimated GFR (Cockcroft-Gault) 112.8 BUN/Creatinine Ratio 25 (6-20) H Glucose Level 185 mg/dL (70-99) H Lactic Acid Level 1.7 mmol/L (0.4-2.0) Calcium Level 8.9 mg/dL (8.5-10.1) Total Bilirubin 1.4 mg/dL (0.2-1.0) H Aspartate Amino Transferase (AST) 25 U/L (15-37) Alanine Aminotransferase (ALT) 29 U/L (16-63) Alkaline Phosphatase 105 U/L (46-116) Total Protein 7.0 g/dL (6.4-8.2) Albumin 3.6 g/dL (3.4-5.0) Albumin/Globulin Ratio 1.1 (1.0-1.7) Lipase 135 U/L (73-393) Ethyl Alcohol Level < 10 mg/dL (0-10) Laboratory Tests 05/17/18 18:30 Laboratory Tests 05/17/18 18:30 EKG EKG [] Radiology/Procedures Radiology/Procedures PROCEDURE: CT ABD PELV W/ IV CONTRST ONLY CT abdomen and pelvis with contrast: Reason for examination: Abdominal pain. Comparison is made to previous study dated 12/16/2017. Helical images were obtained through the abdomen and pelvis with intravenous administration of 75 cc Omnipaque 300. Reconstruction was performed in sagittal and coronal planes. Exposure: One or more of the following individualized dose reduction techniques were utilized for this examination: 1. Automated exposure control 2. Adjustment of the mA and/or kV according to patient size 3. Use of iterative reconstruction technique. The lung bases are clear. The heart size is normal with no pericardial effusion. No abnormality seen at the liver, spleen, adrenal glands or gallbladder. The pancreas appears atrophic with calcifications but is unchanged. The abdominal aorta and inferior vena cava show no acute abnormalities. The kidneys show no renal masses, renal calculi, hydronephrosis or evidence of obstructive uropathy. No abnormality seen at the stomach or duodenum. The small intestinal tract shows no abnormally dilated loops of bowel or thickened bowel kerns. There is no evidence of diverticulosis or diverticulitis. No abnormality seen at the appendix. No abnormality seen at the bladder, prostate gland or seminal vesicles. No free fluid or free air seen in the abdomen or pelvis. No acute bony abnormalities are seen. There does appear to be some mild compression deformity at the central endplates of the T10 and T11 vertebral bodies. IMPRESSION: Atrophic pancreas with calcification but show no change. Mild compression deformity at the endplates of the T10 and T11 vertebral bodies. No other focal abnormality seen in the abdomen or pelvis. Electronically signed by: Kayla Dick MD (05/17/2018 7:28 PM) [facility] DICTATED and SIGNED BY: KAYLA DICK MD DATE: 05/17/181918 Course & Med Decision Making Course & Med Decision Making Pertinent Labs and Imaging studies reviewed. (See chart for details) Patient arrived with her rate of 130, sinus tachycardia. Was given 1 L of normal saline and 1 L with multivitamin. On recheck heart rate down to 115. Dehydration versus alcohol withdrawal. Patient does have ketones in urine but is not acidotic. Lipase within the within normal range. CT of the abdomen and pelvis reviewed and negative for acute abnormalities. Hemoccult positive. No bleeding since arrival to the emergency department. Hemoglobin is 12. Given Protonix IV. Due to patient's tachycardia and hemoccult positive, will admit for further evaluation and observation. Patient agreeable with this plan. All discussing plan patient asked for something to eat. Patient accepted by Dr Deb Castaneda Disclaimer Leonel Disclaimer This electronic medical record was generated, in whole or in part, using a voice recognition dictation system. Departure Departure Impression: Primary Impression: ETOH abuse Additional Impressions: Abdominal pain GI bleed Disposition: ADMITTED INPATIENT Condition: STABLE Referrals: UNKNOWN PCP NAME (PCP) Problem Qualifiers VARUN MOORE APRN May 17, 2018 17:58
[2018-05-17] MEDS ORDERED: fentaNYL PF VIAL 100 MCG/2 ML VIAL IV ONE ×2 (18:00→21:00)
[2018-05-17] MEDS ORDERED: PANTOPRAZOLE IV PUSH 40 MG VIAL. IVP ONE (18:00)
[2018-05-17] MEDS ORDERED: ONDANSETRON PF 4 MG/2 ML VIAL. IV ONE (18:00)
[2018-05-17 18:05] LABS: BILIRUBIN,URINE SMALL (NEG); CLARITY,URINE CLEAR; COLOR,URINE AMBER; NITRITE,URINE NEGATIVE (NEG); PH,URINE 5.5; PROTEIN,URINE NEGATIVE (NEG-TRACE); UROBILINOGEN,URINE 0.2 mg/dL (0.2 mg/dL)
[2018-05-17 18:11] LABS: AMPHETAMINE/METHAMPHETAMINE NEG (NEG); BARBITURATES NEG (NEG); BENZODIAZEPINES NEG (NEG); CANNABINOIDS NEG (NEG); COCAINE NEG (NEG); METHADONE NEG (NEG); OPIATES NEG (NEG); PHENCYCLIDINE NEG (NEG)
[2018-05-17 18:11] LABS: FECAL OB PT POSITIVE (NEG)
[2018-05-17 18:16] LABS: BACTERIA,URINE 0 /HPF (0-FEW); RBC,URINE 0 /HPF (0-2); WBC,URINE 0 /HPF (0-4)
[2018-05-17 18:41] LABS: BASO # 0.1 x10^3/uL (0.0-0.2); BASO % 1 % (0-3); EOS % 0 % (0-3); HEMATOCRIT 37.7 % (39.0-53.0); HEMOGLOBIN 12.4 g/dL (13.0-17.5); LYMPH # 1.2 x10^3/uL (1.0-4.8); LYMPH % 11 % (24-48); MEAN CORPUSCULAR HEMOGLOBIN 26 pg (25-35); MEAN CORPUSCULAR HGB CONC 33 g/dL (31-37); MEAN CORPUSCULAR VOLUME 79 fL (79-100); MONO # 0.8 x10^3/uL (0.0-1.1); MONO % 7 % (0-9); NEUT % 81 % (31-73); PLATELET COUNT 301 x10^3/uL (140-400); RED BLOOD COUNT 4.77 x10^6/uL (4.30-5.70); WHITE BLOOD COUNT 11.2 x10^3/uL (4.0-11.0)
[2018-05-17] MEDS ORDERED: CONTRAST GIVEN. MC PRN (18:45)
[2018-05-17] MEDS ORDERED: IOHEXOL 300 MG/ML 100ML VIAL. IV ONE (18:45)
[2018-05-17 18:49] LABS: CALCIUM 8.9 mg/dL (8.5-10.1); CREATININE 0.8 mg/dL (0.7-1.3); GFR 112.8; POTASSIUM 4.1 mmol/L (3.5-5.1)
[2018-05-17 19:04] LABS: ALBUMIN 3.6 g/dL (3.4-5.0); ALBUMIN/GLOBULIN RATIO 1.1 (1.0-1.7); TOTAL BILIRUBIN 1.4 mg/dL (0.2-1.0)
[2018-05-17 19:24] LABS: ANISOCYTOSIS MOD; PLT ESTIMATE ADEQUATE (ADEQUATE); POIKILOCYTOSIS SLIGHT
--- NOTE | 2018-05-17 19:31 | RAD ---
CT abdomen and pelvis with contrast: Reason for examination: Abdominal pain. Comparison is made to previous study dated 12/16/2017. Helical images were obtained through the abdomen and pelvis with intravenous administration of 75 cc Omnipaque 300. Reconstruction was performed in sagittal and coronal planes. Exposure: One or more of the following individualized dose reduction techniques were utilized for this examination: 1. Automated exposure control 2. Adjustment of the mA and/or kV according to patient size 3. Use of iterative reconstruction technique. The lung bases are clear. The heart size is normal with no pericardial effusion. No abnormality seen at the liver, spleen, adrenal glands or gallbladder. The pancreas appears atrophic with calcifications but is unchanged. The abdominal aorta and inferior vena cava show no acute abnormalities. The kidneys show no renal masses, renal calculi, hydronephrosis or evidence of obstructive uropathy. No abnormality seen at the stomach or duodenum. The small intestinal tract shows no abnormally dilated loops of bowel or thickened bowel kerns. There is no evidence of diverticulosis or diverticulitis. No abnormality seen at the appendix. No abnormality seen at the bladder, prostate gland or seminal vesicles. No free fluid or free air seen in the abdomen or pelvis. No acute bony abnormalities are seen. There does appear to be some mild compression deformity at the central endplates of the T10 and T11 vertebral bodies. IMPRESSION: Atrophic pancreas with calcification but show no change. Mild compression deformity at the endplates of the T10 and T11 vertebral bodies. No other focal abnormality seen in the abdomen or pelvis. Electronically signed by: Kayla Spain MD (05/17/2018 7:28 PM) [facility]
[2018-05-17] MEDS ORDERED: MULTIVIT INFUSN,ADULT 4,VIT K 10 ML, THIAMINE INJ 100 MG, FOLIC ACID INJ 1 MG in IV NOR... IV ONE (20:00)
[2018-05-17] MEDS ORDERED: fentaNYL PF VIAL 100 MCG/2 ML VIAL IV PRN (20:45)
[2018-05-17] MEDS ORDERED: ONDANSETRON PF 4 MG/2 ML VIAL. IV PRN ×2 (20:45→21:15)
[2018-05-17] MEDS ORDERED: DEXTROSE 50% 25 GM / 50ML DISP.SYRIN. IV PRN (21:15)
[2018-05-17] MEDS ORDERED: cloNIDine HCL 0.1 MG TABLET PO PRN (21:15)
[2018-05-17] MEDS ORDERED: ZOLPIDEM 5 MG TABLET. PO PRN (21:15)
[2018-05-17] MEDS ORDERED: ONDANSETRON ODT 4 MG TAB.RAPDIS. PO PRN (21:15)
[2018-05-17] MEDS ORDERED: chlordiazePOXIDE HCL 25 MG CAPSULE PO PRN (21:15)
--- NOTE | 2018-05-17 22:56 | EKG ---
[facility] [address] [place] [address] Test Date: 2018-05-17 Test Time: 18:31:54 Pat Name: VICENTE MONTGOMERY Department: Room: 248 1 Gender: Male [employer] Hel[employer]: : 1985 Requested By: VARUN MOORE Order Number: [id number] Reading MD: Michael Lala Measurements Intervals Raymond Rate: 130 P: FL: QRS: 55 QRSD: 82 T: 40 QT: 286 QTc: 427 Interpretive Statements SINUS TACHYCARDIA Electronically Signed On 05-18-2018 11:28:54 CDT by Michael Lala
[2018-05-17 23:05] VITALS: BP 105/65
[2018-05-18] VITALS (13 sets, daily range): BP systolic 79–113; BP diastolic 40–75
[2018-05-18 00:18] LABS: BASE EXCESS ABG -1 mmol/L (-3-3); HCO3 ABG 23 mmol/L (21-28); PCO2 ABG 36 mmHg (35-46); PO2 ABG 82 mmHg (85-108); SAT O2 ABG 95 % (92-99)
[2018-05-18] MEDS ORDERED: traZODone 50 MG TABLET. PO ONE (01:00)
[2018-05-18] MEDS ORDERED: MIRTAZAPINE 15 MG TABLET PO ONE (01:00)
[2018-05-18] MEDS: NICOTINE 21MG PATCH. TD PRN (01:03)
[2018-05-18] MEDS: HALOPERIDOL 5 MG TABLET. PO SCH ×3 (01:03→21:00)
[2018-05-18] MEDS ORDERED: DIPH25CA58 PO (04:56)
[2018-05-18] MEDS ORDERED: MELA3TAB2 PO (04:56)
[2018-05-18] MEDS: PANTOPRAZOLE IV PUSH 40 MG VIAL. IVP SCH (06:28)
[2018-05-18] MEDS: INSULIN LISPRO 300 UNITS/3 ML INSULN.PEN. SQ SCH ×6 (07:30→17:22)
--- NOTE | 2018-05-18 08:48 | PDOC2 ---
GI CONSULT Reason For Consult: FOBT positive GI bleed HPI: HPI: 32 y/o male admitted through ER. Drowsy this morning. Says had two episodes of coffee-ground emesis and two episodes of "black" diarrhea yesterday. Associated w/ mid abdominal pain that has now resolved. Not sure re: precipitating events, was feeling well prior to yesterday. H/o recurrent alcoholic pancreatitis, hepatic steatosis w/ elevated LFTs, and severe reflux. EGD on 02/09/18 (performed by Dr. Lyle for hematemesis and anemia) showed severe (Grade D) reflux esophagitis, normal stomach (biopsy negative for H. pylori), extensive ulceration in distal duodenal bulb into proximal second portion. Recommended chronic PPI use. Denies NSAIDs but takes ASA sometimes. Has been out of pantoprazole for about a week. Still drinking heavily. Hepatitis serologies negative in 2014. Hgb 12.4, fecal occult positive, has clear liquid diet and IV PPI ordered. PMH: PMH: alcohol/substance abuse, GERD, pancreatitis, fatty liver, HTN, IDDM, GERD, schizophrenia, anxiety, depression, previous suicide attempt, h/o sepsis w/ seizure, HPV, rib and C7 fractures FH: Family History: No pertinent hx Social History: Smoke: <1 pack per day (e-cig) ALCOHOL: heavy (five 24oz cans of 10.5% beer daily) ROS: Difficult history. GEN: Denies fevers CV: Denies chest pain RESP: Denies shortness of air, cough GI: Per HPI ENDO: Denies weight changes NEURO: Denies dizziness Vitals: Vitals: Vital Signs Date Time Temp Pulse Resp B/P (MAP) Pulse Ox O2 Delivery O2 Flow Rate FiO2 05/18/18 07:35 Room Air 05/18/18 06:40 98.7 91 16 104/59 (74 95 98.7 Labs: Labs: Laboratory Tests Test 05/17/18 17:55 05/17/18 18:01 05/17/18 18:30 05/17/18 19:15 Urine Collection Type Unknown Urine Color Baylee Urine Clarity Clear Urine pH 5.5 Urine Specific [place] >=1.030 Urine Protein Negative mg/dL (NEG-TRACE) Urine Glucose (UA) Negative mg/dL (NEG) Urine Ketones (Stick) >=80 mg/dL (NEG) Urine Blood Negative (NEG) Urine Nitrite Negative (NEG) Urine Bilirubin Small (NEG) Urine Urobilinogen Dipstick 0.2 mg/dL (0.2 mg/dL) Urine Leukocyte Esterase Negative (NEG) Urine RBC 0 /HPF (0-2) Urine WBC 0 /HPF (0-4) Urine Bacteria 0 /HPF (0-FEW) Urine Mucus Mod /LPF Urine Opiates Screen Neg (NEG) Urine Methadone Screen Neg (NEG) Urine Barbiturates Neg (NEG) Urine Phencyclidine Screen Neg (NEG) Urine Amphetamine/Methamphetamine Neg (NEG) Urine Benzodiazepines Screen Neg (NEG) Urine Cocaine Screen Neg (NEG) Urine Cannabinoids Screen Neg (NEG) Urine Ethyl Alcohol Neg (NEG) Stool Occult Blood Positive (NEG) White Blood Count 11.2 x10^3/uL (4.0-11.0) Red Blood Count 4.77 x10^6/uL (4.30-5.70) Hemoglobin 12.4 g/dL (13.0-17.5) Hematocrit 37.7 % (39.0-53.0) Mean Corpuscular Volume 79 fL (79-100) Mean Corpuscular Hemoglobin 26 pg (25-35) Mean Corpuscular Hemoglobin Concent 33 g/dL (31-37) Red Cell Distribution Width 21.0 % (11.5-14.5) Platelet Count 301 x10^3/uL (140-400) Neutrophils (%) (Auto) 81 % (31-73) Lymphocytes (%) (Auto) 11 % (24-48) Monocytes (%) (Auto) 7 % (0-9) Eosinophils (%) (Auto) 0 % (0-3) Basophils (%) (Auto) 1 % (0-3) Neutrophils # (Auto) 9.0 x10^3uL (1.8-7.7) Lymphocytes # (Auto) 1.2 x10^3/uL (1.0-4.8) Monocytes # (Auto) 0.8 x10^3/uL (0.0-1.1) Eosinophils # (Auto) 0.0 x10^3/uL (0.0-0.7) Basophils # (Auto) 0.1 x10^3/uL (0.0-0.2) Platelet Estimate Adequate (ADEQUATE) Poikilocytosis Slight Anisocytosis Mod Sodium Level 135 mmol/L (136-145) Potassium Level 4.1 mmol/L (3.5-5.1) Chloride Level 96 mmol/L (98-107) Carbon Dioxide Level 26 mmol/L (21-32) Anion Gap 13 (6-14) Blood Urea Nitrogen 20 mg/dL (8-26) Creatinine 0.8 mg/dL (0.7-1.3) Estimated GFR (Cockcroft-Gault) 112.8 BUN/Creatinine Ratio 25 (6-20) Glucose Level 185 mg/dL (70-99) Lactic Acid Level 1.7 mmol/L (0.4-2.0) Calcium Level 8.9 mg/dL (8.5-10.1) Total Bilirubin 1.4 mg/dL (0.2-1.0) Aspartate Amino Transf (AST/SGOT) 25 U/L (15-37) Alanine Aminotransferase (ALT/SGPT) 29 U/L (16-63) Alkaline Phosphatase 105 U/L (46-116) Total Protein 7.0 g/dL (6.4-8.2) Albumin 3.6 g/dL (3.4-5.0) Albumin/Globulin Ratio 1.1 (1.0-1.7) Lipase 135 U/L (73-393) Ethyl Alcohol Level < 10 mg/dL (0-10) O2 Saturation 95 % (92-99) Arterial Blood pH 7.43 (7.35-7.45) Arterial Blood pCO2 at Patient Temp 36 mmHg (35-46) Arterial Blood pO2 at Patient Temp 82 mmHg (85-108) Arterial Blood HCO3 23 mmol/L (21-28) Arterial Blood Base Excess -1 mmol/L (-3-3) Test 05/17/18 23:04 05/18/18 03:17 Glucose (Fingerstick) 90 mg/dL (70-99) 165 mg/dL (70-99) Allergies: Coded Allergies: No Known Drug Allergies (Unverified , 02/09/18) Medications: Current Medications Medications (Trade) Dose Ordered Sig/Jamey Route PRN Reason Start Time Stop Time Status Last Admin Dose Admin Sodium Chloride 1,000 ml @ 1,000 mls/hr Q1H IV 05/17/18 17:53 05/17/18 18:52 DC 05/17/18 18:43 Pantoprazole Sodium (PROTONIX VIAL for IV PUSH) 40 mg 1X ONCE IVP 05/17/18 18:00 05/17/18 18:01 DC 05/17/18 18:42 Fentanyl Citrate (Fentanyl 2ml Vial) 50 mcg 1X ONCE IV 05/17/18 18:00 05/17/18 18:01 DC 05/17/18 18:42 Ondansetron HCl (Zofran) 4 mg 1X ONCE IV 05/17/18 18:00 05/17/18 18:01 DC 05/17/18 18:43 Iohexol (Omnipaque 300 Mg/ml) 75 ml 1X ONCE IV 05/17/18 18:45 05/17/18 18:46 DC 05/17/18 19:10 Multivitamins 10 ml/Thiamine HCl 100 mg/Folic Acid 1 mg/Sodium Chloride 1,011.2 ml @ 1,000.088 mls/hr 1X ONCE IV 05/17/18 20:00 05/17/18 21:00 DC 05/17/18 20:17 Lorazepam (Ativan) 1 mg 1X ONCE IV 05/17/18 19:30 05/17/18 19:31 DC 05/17/18 19:34 Lorazepam (Ativan) 1 mg PRN Q4HRS PRN IV WITHDRAWAL IRRITABILITY 05/17/18 20:45 05/18/18 07:07 Fentanyl Citrate (Fentanyl 2ml Vial) 50 mcg 1X ONCE IV 05/17/18 21:00 05/17/18 21:01 DC 05/17/18 20:54 Pantoprazole Sodium (PROTONIX VIAL for IV PUSH) 40 mg DAILYAC IVP 05/18/18 07:30 05/18/18 06:28 Nicotine (Nicoderm Cq 21mg) 1 patch PRN DAILY PRN TD SMOKING CESSATION 05/17/18 21:15 05/18/18 01:03 Haloperidol (Haldol) 10 mg BID PO 05/18/18 01:00 05/18/18 01:03 Trazodone HCl (Desyrel) 50 mg 1X ONCE PO 05/18/18 01:00 05/18/18 01:01 DC 05/18/18 01:01 Mirtazapine (Remeron) 30 mg 1X ONCE PO 05/18/18 01:00 05/18/18 01:01 DC 05/18/18 01:01 Imaging: Imaging: CT A/P w/ IV contrast IMPRESSION: Atrophic pancreas with calcification but show no change. Mild compression deformity at the endplates of the T10 and T11 vertebral bodies. No other focal abnormality seen in the abdomen or pelvis. PE: GEN: NAD HEENT: Atraumatic, keeps eyes closed LUNGS: CTAB HEART: RRR when I saw - note some tachycardia ABD: NABS, S/ND/NT EXTREMITY: No edema SKIN: No rashes, no jaundice NEURO/PSYCH: A & O 3, drowsy A/P: A/P: Coffee-ground emesis, ?melena, +FOBT Alcohol abuse - h/o hepatic steatosis and elevated LFTs Severe GERD - off PPI x 1 week H/o alcoholic pancreatitis - atrophic pancreas w/ calcification on CT -- EGD in January w/ severe reflux and duodenal ulceration. NPO for EGD this afternoon. Agree w/ PPI - can change to PO after EGD. JIMMY CLAY May 18, 2018 08:48
[2018-05-18] MEDS: FOLIC ACID 1 MG TABLET. PO SCH (09:06)
[2018-05-18] MEDS: MULTIVITAMIN with MINERAL TABLET. PO SCH (09:06)
[2018-05-18] MEDS: THIAMINE 100 MG TABLET. PO SCH (09:06)
[2018-05-18 09:20] LABS: HEMATOCRIT 29.6 % (39.0-53.0); HEMOGLOBIN 9.7 g/dL (13.0-17.5)
[2018-05-18] MEDS ORDERED: MIDAZOLAM HCL/PF 2 MG/2 ML VIAL. IV PRN (13:30)
[2018-05-18] MEDS ORDERED: fentaNYL PF VIAL 100 MCG/2 ML VIAL IV PRN ×2 (13:30)
[2018-05-18] MEDS ORDERED: LIDOCAINE 1% PF 2 ML VIAL. ID PRN (13:30)
[2018-05-18] MEDS: IV RINGERS,LACTATED 1000ML 1,000 ML IV SCH ×2 (13:37→22:00)
[2018-05-18] MEDS ORDERED: PROPOFOL 20 ML IV ONE ×2 (14:00→14:02)
[2018-05-18] MEDS ORDERED: LIDOCAINE 2% PF 2ML VIAL. ONE (14:01)
--- NOTE | 2018-05-18 14:26 | PDOC4 ---
PROCEDURE Procedure EGD Indication; hematemesis/melena Meds: per anesthesia Findings: E--Grade D esophagitis 35-40cm with ulceration. No varices, M-W tear seen. G--Small HH. "Bruising" anterior wall, upper body due to vomiting. D--Erythema bulb-->second portion w/o overt ulceration on this occasion. Prosper. well. IMP: Severe reflux HH Duodenal erythema REC: Continue PPI Treat alcohol w/drawal, etc. --some of the anemia may be residual from Emeli's bleed w/o iron supplementation. CLARA COLON MD May 18, 2018 14:26
[2018-05-18] MEDS: MULTIVIT INFUSN,ADULT 4,VIT K 10 ML, THIAMINE INJ 100 MG, FOLIC ACID INJ 1 MG in IV NOR... IV SCH (15:27)
[2018-05-18] MEDS: oxyCODONE/APAP 5/325 1 TAB TABLET PO PRN (15:27)
--- NOTE | 2018-05-18 15:44 | HP ---
ADMIT DATE: 05/17/2018 CHIEF COMPLAINT: Hematemesis and alcohol withdrawal. HISTORY OF PRESENT ILLNESS: The patient is a pleasant 32-year-old male who drinks too much. He presented with abdominal pain and alcohol withdrawal. He had some blood in his emesis this morning. States it looked like coffee ground. He had two black tarry stools as well. I have discussed the case with the ER physician. We are going to admit the patient with alcohol withdrawal protocol and consultation to GI. It should be noted that he did go for an EGD this morning. He has severe reflux, hiatal hernia and duodenal erythema. PAST MEDICAL HISTORY: Alcoholism, diabetes, hypertension, pancreatitis, seizures, schizophrenia, sepsis, history of intubation, oral surgery peritonsillar abscess. ALLERGIES: None. FAMILY HISTORY: Diabetes. SOCIAL HISTORY: Drinks heavily. No smoking or drugs. MEDICATIONS: Reviewed, please refer to the MRAD. REVIEW OF SYSTEMS: GENERAL: No history of weight change, weakness or fevers. SKIN: No bruising, hair changes or rashes. EYES: No blurred, double or loss of vision. NOSE AND THROAT: No history of nosebleeds, hoarseness or sore throat. HEART: No history of palpitations, chest pain or shortness of breath on exertion. LUNGS: Denies cough, hemoptysis, wheezing or shortness of breath. GASTROINTESTINAL: Denies changes in appetite, nausea, vomiting, diarrhea or constipation. GENITOURINARY: No history of frequency, urgency, hesitancy or nocturia. NEUROLOGIC: Denies history of numbness, tingling, tremor or weakness. PSYCHIATRIC: No history of panic, anxiety or depression. ENDOCRINE: No history of heat or cold intolerance, polyuria or polydipsia. EXTREMITIES: Denies muscle weakness, joint pain, pain on walking or stiffness. PHYSICAL EXAMINATION: VITAL SIGNS: Temperature afebrile, pulse 80, respirations 18, blood pressure 144/90. GENERAL: He is alert, weak, flat affect. HEART: Normal S1, S2. LUNGS: Clear. ABDOMEN: Soft . EXTREMITIES: No edema. SKIN: No rashes. ENDOCRINE: No thyromegaly. LYMPHATICS: No cervical nodes. HEMATOPOIETIC: No bruising. Hemoglobin was 12, it went down to 9.7. Electrolytes are pending. ASSESSMENT AND PLAN: Gastrointestinal bleed and alcohol withdrawal. The patient has been admitted where he will be given IV proton pump inhibitors, consult GI. The patient did go for an endoscopy. We will follow his hemoglobin, CIWA protocol for his alcohol withdrawal, home meds. PROGNOSIS: Guarded. JUSTIN REID DO DR: RANDI/shaw JOB#: [id number] / [id number]
[2018-05-18] MEDS: MIRTAZAPINE 15 MG TABLET PO SCH (20:39)
[2018-05-18] MEDS: traZODone 50 MG TABLET. PO SCH (21:00)
[2018-05-18] MEDS ORDERED: INSULIN GLARGINE 300 UNITS/3 ML INSULN.PEN. SQ SCH (21:00)
[2018-05-19] MEDS: oxyCODONE/APAP 5/325 1 TAB TABLET PO PRN ×3 (02:07→20:38)
[2018-05-19 03:15] VITALS: BP 110/69
[2018-05-19] MEDS: PANTOPRAZOLE IV PUSH 40 MG VIAL. IVP SCH (06:15)
[2018-05-19 06:43] LABS: CHOLESTEROL/HDL RATIO 1.8
[2018-05-19 07:00] VITALS: BP 95/56
[2018-05-19 07:13] LABS: FREE T4 0.89 ng/dL (0.76-1.46); THYROID STIM HORMONE (TSH) 2.006 uIU/mL (0.358-3.74)
[2018-05-19] MEDS: INSULIN LISPRO 300 UNITS/3 ML INSULN.PEN. SQ SCH ×6 (08:00→18:03)
[2018-05-19] MEDS: HALOPERIDOL 5 MG TABLET. PO SCH ×2 (08:39→20:37)
[2018-05-19] MEDS: MULTIVITAMIN with MINERAL TABLET. PO SCH (08:40)
[2018-05-19] MEDS: FOLIC ACID 1 MG TABLET. PO SCH (08:40)
[2018-05-19] MEDS: THIAMINE 100 MG TABLET. PO SCH (08:40)
[2018-05-19] MEDS: MULTIVIT INFUSN,ADULT 4,VIT K 10 ML, THIAMINE INJ 100 MG, FOLIC ACID INJ 1 MG in IV NOR... IV SCH (08:42)
[2018-05-19] MEDS: NICOTINE 21MG PATCH. TD PRN (09:40)
[2018-05-19] MEDS ORDERED: LORazepam 1 MG TABLET PO PRN (10:45)
[2018-05-19 11:00] VITALS: BP 106/66
--- NOTE | 2018-05-19 11:25 | PDOC ---
Subjective: Subjective: Denies n/v and abd pain. Tolerating liquids, thinks maybe advancing diet. Objective: Vital Signs: Vital Signs Date Time Temp Pulse Resp B/P (MAP) Pulse Ox O2 Delivery O2 Flow Rate FiO2 05/19/18 08:41 Room Air 05/19/18 07:00 98.8 82 18 95/56 (69) 96 98.8 05/18/18 17:23 3.0 Labs: Laboratory Tests Test 05/18/18 14:07 05/18/18 16:51 05/18/18 20:40 05/18/18 21:25 Glucose (Fingerstick) 114 mg/dL 193 mg/dL 46 mg/dL 129 mg/dL Test 05/19/18 05:43 05/19/18 08:18 Glucose Level 157 mg/dL Triglycerides Level 61 mg/dL Cholesterol Level 106 mg/dL LDL Cholesterol, Calculated 36 mg/dL VLDL Cholesterol, Calculated 12 mg/dL Non-HDL Cholesterol Calculated 48 mg/dL HDL Cholesterol 58 mg/dL Cholesterol/HDL Ratio 1.8 Thyroid Stimulating Hormone (TSH) 2.006 uIU/mL Free Thyroxine 0.89 ng/dL Free Triiodothyronine (T3) pg/mL 2.76 pg/mL Glucose (Fingerstick) 115 mg/dL Imaging: EGD E--Grade D esophagitis 35-40cm with ulceration. No varices, M-W tear seen. G--Small HH. "Bruising" anterior wall, upper body due to vomiting. D--Erythema bulb-->second portion w/o overt ulceration on this occasion. IMP: Severe reflux HH Duodenal erythema PE: GEN: NAD LUNGS: CTAB HEART: RRR ABD: S/ND/NT NEURO/PSYCH: A & O 3 A/P: Severe GERD - on PPI, EGD as above Coffee-ground emesis - no recurrence Anemia - no labs today, Hgb 9.7 yesterday Alcohol abuse w/ h/o pancreatitis and hepatic steatosis -- Better. Plans for full liquids. Change to PO PPI. JIMMY CLAY May 19, 2018 11:25
[2018-05-19] MEDS: BENZOCAINE/MENTHOL LOZENGE. PO PRN ×3 (11:26→18:56)
[2018-05-19] MEDS: LORazepam 1 MG TABLET PO PRN ×2 (11:28→20:37)
--- NOTE | 2018-05-19 13:30 | PDOC ---
PROGRESS NOTES Chief Complaint Chief Complaint hematemesis, melena abd pain with GERD, reflux esophagitis on EGD Alcoholism, diabetes hypertension, h/o seizures, schizophrenia, anxiety plan: fu with GI cont protonix 40mg daily, change to PO advance diet to full liquid cont home meds add ativan po prn decrease insulin to lantus 15u qhs, aspart 5u tid, ssi dc tmr History of Present Illness History of Present Illness ROS: no fever, chills, sob or chest pain hypoglycemia abd pain gone no gib anymore post EGD talks slow as his baseline required ativan for withdrawl, but actually he looks calm wo fingers tremors Vitals Vitals Vital Signs Date Time Temp Pulse Resp B/P (MAP) Pulse Ox O2 Delivery O2 Flow Rate FiO2 05/19/18 12:20 Room Air 05/19/18 11:00 98.3 84 12 106/66 (79) 97 98.3 05/18/18 17:23 3.0 Physical Exam General: Alert, Oriented X3, Cooperative Heart: Regular rate, Normal S1, Normal S2 Lungs: Clear, Other Abdomen: Normal bowel sounds, Soft Extremities: No clubbing, No cyanosis Skin: No rashes Labs LABS Laboratory Tests Test 05/18/18 14:07 05/18/18 16:51 05/18/18 20:40 05/18/18 21:25 Glucose (Fingerstick) 114 mg/dL (70-99) 193 mg/dL (70-99) 46 mg/dL (70-99) 129 mg/dL (70-99) Test 05/19/18 05:43 05/19/18 08:18 05/19/18 11:30 Glucose Level 157 mg/dL (70-99) Triglycerides Level 61 mg/dL (0-150) Cholesterol Level 106 mg/dL (0-200) LDL Cholesterol, Calculated 36 mg/dL (0-100) VLDL Cholesterol, Calculated 12 mg/dL (0-40) Non-HDL Cholesterol Calculated 48 mg/dL (0-129) HDL Cholesterol 58 mg/dL (40-60) Cholesterol/HDL Ratio 1.8 Thyroid Stimulating Hormone (TSH) 2.006 uIU/mL (0.358-3.74) Free Thyroxine 0.89 ng/dL (0.76-1.46) Free Triiodothyronine (T3) pg/mL 2.76 pg/mL (2.18-3.98) Glucose (Fingerstick) 115 mg/dL (70-99) 60 mg/dL (70-99) Assessment and Plan Assessmemt and Plan Problems Medical Problems: (1) Abdominal pain Status: Acute (2) ETOH abuse Status: Acute (3) GI bleed Status: Acute Comment Review of Relevant I have reviewed the following items patricia (where applicable) has been applied. Labs Laboratory Tests Test 05/17/18 17:55 05/17/18 18:01 05/17/18 18:30 05/17/18 19:15 Urine Collection Type Unknown Urine Color [place] Urine Clarity Clear Urine pH 5.5 Urine Specific [place] >=1.030 Urine Protein Negative mg/dL (NEG-TRACE) Urine Glucose (UA) Negative mg/dL (NEG) Urine Ketones (Stick) >=80 mg/dL (NEG) Urine Blood Negative (NEG) Urine Nitrite Negative (NEG) Urine Bilirubin Small (NEG) Urine Urobilinogen Dipstick 0.2 mg/dL (0.2 mg/dL) Urine Leukocyte Esterase Negative (NEG) Urine RBC 0 /HPF (0-2) Urine WBC 0 /HPF (0-4) Urine Bacteria 0 /HPF (0-FEW) Urine Mucus Mod /LPF Urine Opiates Screen Neg (NEG) Urine Methadone Screen Neg (NEG) Urine Barbiturates Neg (NEG) Urine Phencyclidine Screen Neg (NEG) Urine Amphetamine/Methamphetamine Neg (NEG) Urine Benzodiazepines Screen Neg (NEG) Urine Cocaine Screen Neg (NEG) Urine Cannabinoids Screen Neg (NEG) Urine Ethyl Alcohol Neg (NEG) Stool Occult Blood Positive (NEG) White Blood Count 11.2 x10^3/uL (4.0-11.0) Red Blood Count 4.77 x10^6/uL (4.30-5.70) Hemoglobin 12.4 g/dL (13.0-17.5) Hematocrit 37.7 % (39.0-53.0) Mean Corpuscular Volume 79 fL (79-100) Mean Corpuscular Hemoglobin 26 pg (25-35) Mean Corpuscular Hemoglobin Concent 33 g/dL (31-37) Red Cell Distribution Width 21.0 % (11.5-14.5) Platelet Count 301 x10^3/uL (140-400) Neutrophils (%) (Auto) 81 % (31-73) Lymphocytes (%) (Auto) 11 % (24-48) Monocytes (%) (Auto) 7 % (0-9) Eosinophils (%) (Auto) 0 % (0-3) Basophils (%) (Auto) 1 % (0-3) Neutrophils # (Auto) 9.0 x10^3uL (1.8-7.7) Lymphocytes # (Auto) 1.2 x10^3/uL (1.0-4.8) Monocytes # (Auto) 0.8 x10^3/uL (0.0-1.1) Eosinophils # (Auto) 0.0 x10^3/uL (0.0-0.7) Basophils # (Auto) 0.1 x10^3/uL (0.0-0.2) Platelet Estimate Adequate (ADEQUATE) Poikilocytosis Slight Anisocytosis Mod Sodium Level 135 mmol/L (136-145) Potassium Level 4.1 mmol/L (3.5-5.1) Chloride Level 96 mmol/L (98-107) Carbon Dioxide Level 26 mmol/L (21-32) Anion Gap 13 (6-14) Blood Urea Nitrogen 20 mg/dL (8-26) Creatinine 0.8 mg/dL (0.7-1.3) Estimated GFR (Cockcroft-Gault) 112.8 BUN/Creatinine Ratio 25 (6-20) Glucose Level 185 mg/dL (70-99) Lactic Acid Level 1.7 mmol/L (0.4-2.0) Calcium Level 8.9 mg/dL (8.5-10.1) Total Bilirubin 1.4 mg/dL (0.2-1.0) Aspartate Amino Transf (AST/SGOT) 25 U/L (15-37) Alanine Aminotransferase (ALT/SGPT) 29 U/L (16-63) Alkaline Phosphatase 105 U/L (46-116) Total Protein 7.0 g/dL (6.4-8.2) Albumin 3.6 g/dL (3.4-5.0) Albumin/Globulin Ratio 1.1 (1.0-1.7) Lipase 135 U/L (73-393) Ethyl Alcohol Level < 10 mg/dL (0-10) O2 Saturation 95 % (92-99) Arterial Blood pH 7.43 (7.35-7.45) Arterial Blood pCO2 at Patient Temp 36 mmHg (35-46) Arterial Blood pO2 at Patient Temp 82 mmHg (85-108) Arterial Blood HCO3 23 mmol/L (21-28) Arterial Blood Base Excess -1 mmol/L (-3-3) Test 05/17/18 23:04 05/18/18 03:17 05/18/18 08:50 05/18/18 08:57 Glucose (Fingerstick) 90 mg/dL (70-99) 165 mg/dL (70-99) 102 mg/dL (70-99) Hemoglobin 9.7 g/dL (13.0-17.5) Hematocrit 29.6 % (39.0-53.0) Mean Corpuscular Hemoglobin Concent 33 g/dL (31-37) Test 05/18/18 14:07 05/18/18 16:51 05/18/18 20:40 05/18/18 21:25 Glucose (Fingerstick) 114 mg/dL (70-99) 193 mg/dL (70-99) 46 mg/dL (70-99) 129 mg/dL (70-99) Test 05/19/18 05:43 05/19/18 08:18 05/19/18 11:30 Glucose Level 157 mg/dL (70-99) Triglycerides Level 61 mg/dL (0-150) Cholesterol Level 106 mg/dL (0-200) LDL Cholesterol, Calculated 36 mg/dL (0-100) VLDL Cholesterol, Calculated 12 mg/dL (0-40) Non-HDL Cholesterol Calculated 48 mg/dL (0-129) HDL Cholesterol 58 mg/dL (40-60) Cholesterol/HDL Ratio 1.8 Thyroid Stimulating Hormone (TSH) 2.006 uIU/mL (0.358-3.74) Free Thyroxine 0.89 ng/dL (0.76-1.46) Free Triiodothyronine (T3) pg/mL 2.76 pg/mL (2.18-3.98) Glucose (Fingerstick) 115 mg/dL (70-99) 60 mg/dL (70-99) Laboratory Tests Test 05/18/18 14:07 05/18/18 16:51 05/18/18 20:40 05/18/18 21:25 Glucose (Fingerstick) 114 mg/dL (70-99) 193 mg/dL (70-99) 46 mg/dL (70-99) 129 mg/dL (70-99) Test 05/19/18 05:43 05/19/18 08:18 05/19/18 11:30 Glucose Level 157 mg/dL (70-99) Triglycerides Level 61 mg/dL (0-150) Cholesterol Level 106 mg/dL (0-200) LDL Cholesterol, Calculated 36 mg/dL (0-100) VLDL Cholesterol, Calculated 12 mg/dL (0-40) Non-HDL Cholesterol Calculated 48 mg/dL (0-129) HDL Cholesterol 58 mg/dL (40-60) Cholesterol/HDL Ratio 1.8 Thyroid Stimulating Hormone (TSH) 2.006 uIU/mL (0.358-3.74) Free Thyroxine 0.89 ng/dL (0.76-1.46) Free Triiodothyronine (T3) pg/mL 2.76 pg/mL (2.18-3.98) Glucose (Fingerstick) 115 mg/dL (70-99) 60 mg/dL (70-99) Medications Current Medications Sodium Chloride 1,000 ml @ 1,000 mls/hr Q1H IV Last administered on 05/17/18at 18:43; Start 05/17/18 at 17:53; Stop 05/17/18 at 18:52; Status DC Pantoprazole Sodium (PROTONIX VIAL for IV PUSH) 40 mg 1X ONCE IVP Last administered on 05/17/18at 18:42; Start 05/17/18 at 18:00; Stop 05/17/18 at 18:01 ; Status DC Fentanyl Citrate (Fentanyl 2ml Vial) 50 mcg 1X ONCE IV Last administered on at 18:42; Start 05/17/18 at 18:00; Stop 05/17/18 at 18:01; Status DC Ondansetron HCl (Zofran) 4 mg 1X ONCE IV Last administered on 05/17/18at 18:43 ; Start 05/17/18 at 18:00; Stop 05/17/18 at 18:01; Status DC Iohexol (Omnipaque 300 Mg/ml) 75 ml 1X ONCE IV Last administered on 05/17/18at 19:10; Start 05/17/18 at 18:45; Stop 05/17/18 at 18:46; Status DC Info (CONTRAST GIVEN -- Rx MONITORING) 1 each PRN DAILY PRN MC SEE COMMENTS; Start 05/17/18 at 18:45; Stop 05/19/18 at 18:44 Multivitamins 10 ml/Thiamine HCl 100 mg/Folic Acid 1 mg/Sodium Chloride 1,011.2 ml @ 1,000.088 mls/hr 1X ONCE IV Last administered on 05/17/18at 20:17; Start 05/17/18 at 20:00; Stop 05/17/18 at 21:00; Status DC Lorazepam (Ativan) 1 mg 1X ONCE IV Last administered on 05/17/18at 19:34; Start 05/17/18 at 19:30; Stop 05/17/18 at 19:31; Status DC Ondansetron HCl (Zofran) 4 mg PRN Q8HRS PRN IV NAUSEA/VOMITING; Start 05/17/18 at 20:45; Stop 05/17/18 at 21:07; Status DC Fentanyl Citrate (Fentanyl 2ml Vial) 50 mcg PRN Q2HR PRN IV PAIN Last administered on 05/18/18at 14:45; Start 05/17/18 at 20:45; Stop 05/18/18 at 20:44 ; Status DC Lorazepam (Ativan) 1 mg PRN Q4HRS PRN IV WITHDRAWAL IRRITABILITY Last administered on 05/19/18at 04:15; Start 05/17/18 at 20:45; Stop 05/19/18 at 10:40 ; Status DC Fentanyl Citrate (Fentanyl 2ml Vial) 50 mcg 1X ONCE IV Last administered on at 20:54; Start 05/17/18 at 21:00; Stop 05/17/18 at 21:01; Status DC Ondansetron HCl (Zofran) 4 mg PRN Q6HRS PRN IV NAUSEA/VOMITING 1ST CHOICE; Start 05/17/18 at 21:15 Pantoprazole Sodium (PROTONIX VIAL for IV PUSH) 40 mg DAILYAC IVP Last administered on 05/19/18at 06:15; Start 05/18/18 at 07:30; Stop 05/19/18 at 11:26 ; Status DC Chlordiazepoxide (Librium) 25 mg PRN Q6HRS PRN PO ANXIETY / AGITATION; Start at 21:15 Zolpidem Tartrate (Ambien) 5 mg PRN QHS PRN PO INSOMNIA; Start 05/17/18 at 21: 15; Stop 05/17/18 at 21:15; Status DC Nicotine (Nicoderm Cq 21mg) 1 patch PRN DAILY PRN TD SMOKING CESSATION Last administered on 05/19/18at 09:40; Start 05/17/18 at 21:15 Clonidine HCl (Catapres) 0.1 mg PRN Q1HR PRN PO HYPERTENSION, SEE COMMENTS; Start 05/17/18 at 21:15 Oxycodone/ Acetaminophen (Percocet 5/325) 1 tab PRN Q4HRS PRN PO SEVERE PAIN Last administered on 05/19/18at 08:41; Start 05/17/18 at 21:15 Thiamine Mononitrate (Vitamin B-1) 100 mg DAILY PO Last administered on at 08:40; Start 05/18/18 at 09:00 Folic Acid (Folic Acid) 1 mg DAILY PO Last administered on 05/19/18at 08:40; Start 05/18/18 at 09:00 Multivitamins (Thera M Plus) 1 tab DAILY PO Last administered on 05/19/18at 08: 40; Start 05/18/18 at 09:00 Haloperidol (Haldol) 10 mg BID PO Last administered on 05/19/18at 08:39; Start 05/18/18 at 01:00 Insulin Glargine (Lantus) 30 units QHS SQ ; Start 05/18/18 at 21:00 Insulin Human Lispro (HumaLOG) 10 units TIDAC SQ Last administered on at 08:46; Start 05/18/18 at 07:30 Ondansetron HCl (Zofran Odt) 4 mg PRN Q4HRS PRN PO VOMITING 1ST CHOICE; Start 05/17/18 at 21:15 Mirtazapine (Remeron) 30 mg QHS PO Last administered on 05/18/18at 20:39; Start 05/18/18 at 21:00 Trazodone HCl (Desyrel) 50 mg QHS PO Last administered on 05/18/18at 21:00; Start 05/18/18 at 21:00 Insulin Human Lispro (HumaLOG) 0-9 UNITS TIDWMEALS SQ Last administered on 05/18at 17:22; Start 05/18/18 at 08:00 Dextrose (Dextrose 50%-Water Syringe) 12.5 gm PRN Q15MIN PRN IV SEE COMMENTS Last administered on 05/18/18at 20:48; Start 05/17/18 at 21:15 Trazodone HCl (Desyrel) 50 mg 1X ONCE PO Last administered on 05/18/18at 01:01 ; Start 05/18/18 at 01:00; Stop 05/18/18 at 01:01; Status DC Mirtazapine (Remeron) 30 mg 1X ONCE PO Last administered on 05/18/18at 01:01; Start 05/18/18 at 01:00; Stop 05/18/18 at 01:01; Status DC Multivitamins 10 ml/Thiamine HCl 100 mg/Folic Acid 1 mg/Sodium Chloride 1,011.2 ml @ 100 mls/ hr DAILY IV Last administered on 05/19/18at 08:42; Start at 12:00; Stop 05/20/18 at 06:00 Midazolam HCl (Versed) 2 mg PRN 1X PRN IV PRIOR TO PROCEDURE; Start 05/18/18 at 13:30; Stop 05/18/18 at 21:00; Status DC Fentanyl Citrate (Fentanyl 2ml Vial) 25 mcg PRN Q5MIN PRN IV X 2 DOSES FOR PAIN ; Start 05/18/18 at 13:30; Stop 05/18/18 at 21:00; Status DC Fentanyl Citrate (Fentanyl 2ml Vial) 50 mcg PRN Q5MIN PRN IV X 2 DOSES FOR PAIN ; Start 05/18/18 at 13:30; Stop 05/18/18 at 21:00; Status DC Ringer's Solution 1,000 ml @ 125 mls/hr Q8H IV Last administered on 05/18/18at 13:37; Start 05/18/18 at 14:00; Stop 05/18/18 at 23:00; Status DC Lidocaine HCl (Xylocaine-Mpf 1% 2ml Vial) 2 ml 1X PRN PRN ID IV START; Start at 13:30; Stop 05/18/18 at 21:00; Status DC Propofol 20 ml @ As Directed STK-MED ONCE IV ; Start 05/18/18 at 14:00; Stop at 14:02; Status DC Lidocaine HCl (Xylocaine-Mpf 2% Vial) 2 ml STK-MED ONCE .ROUTE ; Start 05/18/18 at 14:01; Stop 05/18/18 at 14:02; Status DC Propofol 20 ml @ As Directed STK-MED ONCE IV ; Start 05/18/18 at 14:02; Stop at 14:03; Status DC Lorazepam (Ativan) 1 mg PRN Q6HRS PRN PO ANXIETY / AGITATION; Start 05/19/18 at 10:45; Stop 05/19/18 at 10:45; Status DC Throat Lozenges (Cepacol Sore Throat Lozenge) 1 lc PRN Q2HRS PRN PO SORE THROAT Last administered on 05/19/18at 11:26; Start 05/19/18 at 10:45 Lorazepam (Ativan) 0.5 mg PRN Q8HRS PRN PO ANXIETY / AGITATION Last administered on 05/19/18at 11:28; Start 05/19/18 at 10:45 Pantoprazole Sodium (Protonix) 40 mg DAILYAC PO ; Start 05/20/18 at 07:30 Active Scripts Active Protonix (Pantoprazole Sodium) 20 Mg Tablet.dr 40 Mg PO DAILY 60 Days Humalog (Insulin Lispro) 100 Unit/1 Ml Insuln.pen 10 Units SQ TIDAC 30 Days Lantus Solostar (Insulin Glargine,Hum.rec.anlog) 100 Unit/1 Ml Insuln.pen 30 Units SQ QHS 30 Days [place] 5-325 Tablet (Acetaminophen/Hydrocodone Bitart) 1 Each Tablet 1 Tab PO Q6HRS PRN Zofran Odt (Ondansetron) 4 Mg Tab.rapdis 1 Tab SL Q4HRS PRN Reported Benadryl (Diphenhydramine Hcl) 25 Mg Capsule 50 Mg PO QHS Melatonin 3 Mg Tablet 1 Tab PO QHS Folic Acid 1 Mg Tablet 1 Tab PO DAILY Mirtazapine 30 Mg Tablet 1 Tab PO QHS Haloperidol 5 Mg Tablet 10 Mg PO BID Trazodone Hcl 150 Mg Tablet 50 Mg PO HS Vitals/I & O Vital Sign - Last 24 Hours 05/18/18 05/18/18 05/18/18 05/18/18 13:33 13:35 14:24 14:40 Temp 97.7 97.8 97.7 97.8 Pulse 94 95 86 Resp 20 18 18 B/P (MAP) 119/81 112/69 Pulse Ox 99 95 95 O2 Delivery Room Air Room Air Room Air O2 Flow Rate 3 05/18/18 05/18/18 05/18/18 05/18/18 14:45 14:53 15:00 15:15 Temp 97.8 97.8 Pulse 101 88 79 Resp 18 B/P (MAP) 102/64 111/75 (87) 109/61 (77) Pulse Ox 95 96 O2 Delivery Room Air Room Air 05/18/18 05/18/18 05/18/18 05/18/18 15:30 15:45 16:00 16:15 Pulse 94 81 90 96 B/P (MAP) 98/68 (78) 103/63 (76) 88/68 (75) 113/74 (87) 05/18/18 05/18/18 05/18/18 05/18/18 17:00 17:20 17:23 19:37 Temp 98.6 98.6 Pulse 80 86 93 B/P (MAP) 79/40 (53) 88/55 (66) 99/54 (69) Pulse Ox 96 96 O2 Delivery Room Air Room Air O2 Flow Rate 3.0 05/18/18 05/18/18 05/19/18 05/19/18 19:55 23:21 02:07 03:15 Temp 99.0 98.8 99.0 98.8 Pulse 93 78 B/P (MAP) 86/51 (63) 110/69 (83) Pulse Ox 97 96 O2 Delivery Room Air Room Air Room Air Room Air 05/19/18 05/19/18 05/19/18 05/19/18 07:00 07:50 08:41 11:00 Temp 98.8 98.3 98.8 98.3 Pulse 82 84 Resp 18 12 B/P (MAP) 95/56 (69) 106/66 (79) Pulse Ox 96 97 O2 Delivery Room Air Room Air Room Air Room Air 05/19/18 12:20 O2 Delivery Room Air Intake and Output 05/18/18 05/18/18 05/19/18 15:00 23:00 07:00 Intake Total 450 ml 1890 ml 480 ml Output Total 500 ml 500 ml 1300 ml Balance -50 ml 1390 ml -820 ml PRAKASH EGAN MD May 19, 2018 13:30
[2018-05-19 14:49] VITALS: BP 92/48
[2018-05-19 19:01] VITALS: BP 104/63
[2018-05-19] MEDS: MIRTAZAPINE 15 MG TABLET PO SCH (20:37)
[2018-05-19] MEDS: traZODone 50 MG TABLET. PO SCH (20:37)
[2018-05-19] MEDS ORDERED: INSULIN GLARGINE 300 UNITS/3 ML INSULN.PEN. SQ SCH (21:00)
[2018-05-19] MEDS ORDERED: diphenhydrAMINE HCL 25 MG CAPSULE PO PRN (22:15)
[2018-05-19] MEDS: NICOTINE POLACRILEX 2MG GUM PACKAGE of 12. BC PRN (22:18)
[2018-05-19 23:16] VITALS: BP 102/60
[2018-05-20] MEDS: NICOTINE POLACRILEX 2MG GUM PACKAGE of 12. BC PRN ×2 (02:35→06:36)
[2018-05-20 02:42] VITALS: BP 118/82
[2018-05-20] MEDS: oxyCODONE/APAP 5/325 1 TAB TABLET PO PRN (02:44)
[2018-05-20] MEDS: LORazepam 1 MG TABLET PO PRN (06:37)
[2018-05-20 07:00] VITALS: BP 117/73
[2018-05-20 07:03] LABS: BASO # 0.1 x10^3/uL (0.0-0.2); BASO % 1 % (0-3); EOS # 0.2 x10^3/uL (0.0-0.7); EOS % 2 % (0-3); LYMPH # 2.3 x10^3/uL (1.0-4.8); LYMPH % 26 % (24-48); MEAN CORPUSCULAR HEMOGLOBIN 27 pg (25-35); MEAN CORPUSCULAR HGB CONC 34 g/dL (31-37); MEAN CORPUSCULAR VOLUME 81 fL (79-100); MONO # 0.7 x10^3/uL (0.0-1.1); MONO % 8 % (0-9); NEUT # 5.5 x10^3uL (1.8-7.7); NEUT % 64 % (31-73); PLATELET COUNT 228 x10^3/uL (140-400); RED BLOOD COUNT 3.35 x10^6/uL (4.30-5.70); RED CELL DISTRIBUTION WIDTH 20.7 % (11.5-14.5); WHITE BLOOD COUNT 8.6 x10^3/uL (4.0-11.0)
[2018-05-20] MEDS ORDERED: PANTOPRAZOLE 40 MG TABLET.DR. PO SCH (07:30)
[2018-05-20] MEDS: THIAMINE 100 MG TABLET. PO SCH (07:44)
[2018-05-20] MEDS: MULTIVITAMIN with MINERAL TABLET. PO SCH (07:44)
[2018-05-20] MEDS: NICOTINE 21MG PATCH. TD PRN (07:44)
[2018-05-20] MEDS: HALOPERIDOL 5 MG TABLET. PO SCH (07:44)
[2018-05-20] MEDS: INSULIN LISPRO 300 UNITS/3 ML INSULN.PEN. SQ SCH ×4 (07:51→12:00)
[2018-05-20] MEDS: FOLIC ACID 1 MG TABLET. PO SCH (07:55)
[2018-05-20 08:00] LABS: CREATININE 0.8 mg/dL (0.7-1.3); GFR 112.8; POTASSIUM 3.7 mmol/L (3.5-5.1)
[2018-05-20] MEDS ORDERED: LORA-434 PO (10:16)
[2018-05-20] MEDS ORDERED: HYDR-971 PO (10:16)
[2018-05-20] MEDS ORDERED: PANT20TA2 PO (10:16)
--- NOTE | 2018-05-20 10:27 | PDOC ---
Subjective: Subjective: Was asleep, says he's confused. Tolerating PO. Objective: Vital Signs: Vital Signs Date Time Temp Pulse Resp B/P (MAP) Pulse Ox O2 Delivery O2 Flow Rate FiO2 05/20/18 08:00 Room Air 05/20/18 07:00 98.9 74 16 117/73 (88) 97 98.9 Labs: Laboratory Tests Test 05/19/18 11:30 05/19/18 16:56 05/19/18 20:35 05/20/18 06:20 Glucose (Fingerstick) 60 mg/dL 155 mg/dL 66 mg/dL White Blood Count 8.6 x10^3/uL Red Blood Count 3.35 x10^6/uL Hemoglobin 9.0 g/dL Hematocrit 27.0 % Mean Corpuscular Volume 81 fL Mean Corpuscular Hemoglobin 27 pg Mean Corpuscular Hemoglobin Concent 34 g/dL Red Cell Distribution Width 20.7 % Platelet Count 228 x10^3/uL Neutrophils (%) (Auto) 64 % Lymphocytes (%) (Auto) 26 % Monocytes (%) (Auto) 8 % Eosinophils (%) (Auto) 2 % Basophils (%) (Auto) 1 % Neutrophils # (Auto) 5.5 x10^3uL Lymphocytes # (Auto) 2.3 x10^3/uL Monocytes # (Auto) 0.7 x10^3/uL Eosinophils # (Auto) 0.2 x10^3/uL Basophils # (Auto) 0.1 x10^3/uL Test 05/20/18 06:22 05/20/18 07:00 Sodium Level 140 mmol/L Potassium Level 3.7 mmol/L Chloride Level 104 mmol/L Carbon Dioxide Level 27 mmol/L Anion Gap 9 Blood Urea Nitrogen 6 mg/dL Creatinine 0.8 mg/dL Estimated GFR (Cockcroft-Gault) 112.8 Glucose Level 197 mg/dL Calcium Level 8.0 mg/dL Glucose (Fingerstick) 168 mg/dL PE: GEN: NAD, was sleeping LUNGS: CTAB HEART: RRR ABD: S/ND/NT NEURO/PSYCH: confused? flat A/P: GERD Anemia - stable Alcohol abuse -- Continue PPI and consider addition of PO iron. DC per primary. JIMMY CLAY May 20, 2018 10:27
[2018-05-20 11:00] VITALS: BP 103/61
--- NOTE | 2018-05-20 14:49 | PDOC3 ---
Discharge Summary [facility] Date of Admission: May 17, 2018 Discharge Date: May 20, 2018 Admitting Diagnosis ematemesis, melena abd pain with GERD, reflux esophagitis on EGD Alcoholism, diabetes hypertension, h/o seizures, schizophrenia, anxiety Final Diagnosis CONSULTS gi Brief Hospital Course Mr. Reyes is a 32 old M, schizo, chronic alcoholism, frequent hosp visitor as alcoholism, or pancreatitis, came in for N/V, with blood, and abd pain. EGD showed reflux esophagitis. pt feels ok , no pain, eats ok. dc home cont protonix. dc time 35min. General: Alert, Oriented X3, Cooperative Heart: Regular rate, Normal S1, Normal S2 Lungs: Clear, Other Abdomen: Normal bowel sounds, Soft Extremities: No clubbing, No cyanosis Skin: No rashes Disposition home CONDITION AT DISCHARGE: Improved, Stable Scheduled Diphenhydramine Hcl (Benadryl), 50 MG PO QHS, (Reported) Folic Acid (Folic Acid), 1 TAB PO DAILY, (Reported) Haloperidol (Haloperidol), 10 MG PO BID, (Reported) Insulin Glargine,Hum.rec.anlog (Lantus Solostar), 30 UNITS SQ QHS Insulin Lispro (Humalog), 10 UNITS SQ TIDAC Melatonin (Melatonin), 1 TAB PO QHS, (Reported) Mirtazapine (Mirtazapine), 1 TAB PO QHS, (Reported) Pantoprazole Sodium (Protonix), 40 MG PO DAILY Trazodone Hcl (Trazodone Hcl), 50 MG PO HS, (Reported) Scheduled PRN Hydrocodone/Apap 5-325 ([place] 5-325 Tablet), 1 TAB PO Q6HRS PRN for PAIN Lorazepam (Ativan), 0.5 MG PO PRN Q8HRS PRN for ANXIETY / AGITATION 1st Choice Ondansetron (Zofran Odt), 1 TAB SL Q4HRS PRN for VOMITING PRAKASH EGAN MD May 20, 2018 14:49
== END 2018-05-20 12:00 | disposition home or self-care (01) | DRG 378 ==
LOC: ER 15:41 → 2 SOUTH 21:35
PROVIDERS: ADMIT Internal Medicine; ATTEND Internal Medicine
PROC: 0DJ08ZZ Inspection of Upper Intestinal Tract, Via Natural or Artificial Opening Endoscopic (ICD-10-PCS; principal; 2018-05-18 14:15)
DX: K92.0 Hematemesis (principal); F10.239 Alcohol dependence with withdrawal, unspecified; K22.10 Ulcer of esophagus without bleeding; K21.0 Gastro-esophageal reflux disease with esophagitis; D64.9 Anemia, unspecified; F25.9 Schizoaffective disorder, unspecified; F32.9 Major depressive disorder, single episode, unspecified; F41.9 Anxiety disorder, unspecified; I10 Essential (primary) hypertension; F19.10 Other psychoactive substance abuse, uncomplicated; K76.0 Fatty (change of) liver, not elsewhere classified; F17.210 Nicotine dependence, cigarettes, uncomplicated; Z79.4 Long term (current) use of insulin; Z79.82 Long term (current) use of aspirin; Z83.3 Family history of diabetes mellitus
CPT/HCPCS: 36415; 36600; 74177; 80048; 80053; 80061; 80307; 81001; 82274; 82805; 82947; 82962; 83605; 83690; 84439; 84443; 84481; 85014; 85018; 85025; 93005; 96361; 96365; 96375; C9113; G0480; J1815; J2001; J2060; J2405; J2704; J3010; J7030; J7042; J7120; Q0163; Q9967; 99285-25; G0479

== ENCOUNTER 2018-09-13 04:01 | Inpatient (IN) | payer OTHER ==
[~2018-09-13] VITALS: Ht 195.6 cm; Wt 106.6 kg
[~2018-09-13 04:01] MED LIST changes: +DIPH25CA58 PO; -HYDR-2758 PO; +HYDR-2761 PO; +HYDR-3164 PO; -HYDR-971 PO; +LORA-434 PO; +MELA3TAB2 PO
[2018-09-13 04:30] LABS: BASO % 0 % (0-3); EOS % 0 % (0-3); HEMATOCRIT 42.1 % (39.0-53.0); HEMOGLOBIN 14.4 g/dL (13.0-17.5); LYMPH # 0.7 x10^3/uL (1.0-4.8); LYMPH % 6 % (24-48); MEAN CORPUSCULAR HEMOGLOBIN 26 pg (25-35); MEAN CORPUSCULAR HGB CONC 34 g/dL (31-37); MEAN CORPUSCULAR VOLUME 76 fL (79-100); MONO # 0.7 x10^3/uL (0.0-1.1); MONO % 6 % (0-9); NEUT # 10.7 x10^3uL (1.8-7.7); NEUT % 88 % (31-73); PLATELET COUNT 260 x10^3/uL (140-400); RED BLOOD COUNT 5.57 x10^6/uL (4.30-5.70); RED CELL DISTRIBUTION WIDTH 22.2 % (11.5-14.5); WHITE BLOOD COUNT 12.2 x10^3/uL (4.0-11.0)
[2018-09-13] MEDS ORDERED: IV NORMAL SALINE 1000ML BAG 1,000 ML IV SCH (04:30)
[2018-09-13] MEDS ORDERED: ONDANSETRON PF 4 MG/2 ML VIAL. IV ONE ×2 (04:30→05:45)
[2018-09-13 04:38] LABS: CALCIUM 10.2 mg/dL (8.5-10.1); CREATININE 1.5 mg/dL (0.7-1.3); GFR 54.2; POTASSIUM 3.1 mmol/L (3.5-5.1)
[2018-09-13 04:43] LABS: ALBUMIN 3.8 g/dL (3.4-5.0); ALBUMIN/GLOBULIN RATIO 1.1 (1.0-1.7); TOTAL BILIRUBIN 3.1 mg/dL (0.2-1.0); TOTAL PROTEIN 7.4 g/dL (6.4-8.2)
[2018-09-13] MEDS: fentaNYL PF VIAL 100 MCG/2 ML VIAL IV PRN ×3 (04:53→05:33)
[2018-09-13 05:31] LABS: % BASOS 1 % (0-3); % LYMPHS 5 % (24-48); % MONOS 2 % (0-10); % SEGS 92 % (35-66); ANISOCYTOSIS MOD; PLT ESTIMATE ADEQUATE (ADEQUATE); TOXIC GRANULATION SLIGHT
--- NOTE | 2018-09-13 05:31 | PHYS DOC ---
Past Medical History Past Medical History: Diabetes-Type I, Diabetes-Type II, Hypertension, Pancreatitis, Seizure, Schizophrenia, Other Additional Past Medical Histor: sepsis, intubation Past Surgical History: Other Additional Past Surgical Histo: ORAL SURGERY, peritonsillar abcess drained Alcohol Use: Heavy Drug Use: None Adult General Chief Complaint Chief Complaint: ABDOMINAL PAIN HPI HPI A chest is a 33-year-old male who presents with complaint of mid to upper abdominal pain that started couple days ago and states that has been progressively worsening. He reports to having nausea and vomiting and is unable to keep anything down. Patient states that he has a history of pancreatitis and believes that he is having an episode of pancreatitis. He does admit to heavy alcohol abuse and states that it has been 3 days since his last drink. Patient does indicate that he is getting very shaky and states that he does have a history of delirium tremens with seizures. Patient states that there are no alleviating factors. He states that symptoms are worsened if he tries to eat or drink anything. Review of Systems Review of Systems Constitutional: Denies fever or chills [] Respiratory: Denies cough or shortness of breath [] Cardiovascular: No additional information not addressed in HPI [] GI: Complains of abdominal pain with nausea and vomiting. Denies diarrhea [] Musculoskeletal: Complains of mid back pain [] Integument: Denies rash or skin lesions [] All other systems were reviewed and found to be within normal limits, except as documented in this note. Current Medications Current Medications Current Medications Medications (Trade) Dose Ordered Sig/Jamey Start Time Stop Time Status Last Admin Dose Admin Fentanyl Citrate (Fentanyl 2ml Vial) 25 mcg 1X ONCE 09/13/18 05:45 09/13/18 05:46 UNV Lorazepam (Ativan) 1 mg 1X ONCE 09/13/18 05:45 09/13/18 05:46 UNV Ondansetron HCl (Zofran) 4 mg 1X ONCE 09/13/18 05:45 09/13/18 05:46 UNV 09/13/18 05:48 4 MG Sodium Chloride 1,000 ml @ 1,000 mls/hr Q1H 09/13/18 04:30 09/13/18 05:29 DC 09/13/18 04:56 1,000 MLS/HR Allergies Allergies Allergies Coded Allergies Type Severity Reaction Last Updated Verified No Known Drug Allergies 05/18/18 No Physical Exam Physical Exam Constitutional: Well developed, well nourished, appears uncomfortable and is tremulous, non-toxic appearance. [] HENT: Normocephalic, atraumatic, bilateral external ears normal, oropharynx dry , no oral exudates, nose normal. [] Eyes: PERRLA, EOMI, conjunctiva normal, no discharge. [] Neck: Normal range of motion, no tenderness, supple. [] Cardiovascular: Tachycardic rate with regular rhythm [] Lungs & Thorax: Bilateral breath sounds clear to auscultation [] Abdomen: Bowel sounds normal, soft, with moderate epigastric tenderness. [] Skin: Warm, dry, no erythema, no rash. [] Extremities: No tenderness, no cyanosis, no clubbing, ROM intact, no edema. [] Neurologic: Alert and oriented X 3, no focal deficits noted. [] Current Patient Data Vital Signs Vital Signs Date Time Temp Pulse Resp B/P (MAP) Pulse Ox O2 Delivery O2 Flow Rate FiO2 09/13/18 05:33 38 100 Room Air 09/13/18 04:14 98.0 112 139/102 (114) 98.0 Lab Values Laboratory Tests Test 09/13/18 04:05 White Blood Count 12.2 x10^3/uL (4.0-11.0) H Red Blood Count 5.57 x10^6/uL (4.30-5.70) Hemoglobin 14.4 g/dL (13.0-17.5) Hematocrit 42.1 % (39.0-53.0) Mean Corpuscular Volume 76 fL (79-100) L Mean Corpuscular Hemoglobin 26 pg (25-35) Mean Corpuscular Hemoglobin Concent 34 g/dL (31-37) Red Cell Distribution Width 22.2 % (11.5-14.5) H Platelet Count 260 x10^3/uL (140-400) Neutrophils (%) (Auto) 88 % (31-73) H Lymphocytes (%) (Auto) 6 % (24-48) L Monocytes (%) (Auto) 6 % (0-9) Eosinophils (%) (Auto) 0 % (0-3) Basophils (%) (Auto) 0 % (0-3) Neutrophils # (Auto) 10.7 x10^3uL (1.8-7.7) H Lymphocytes # (Auto) 0.7 x10^3/uL (1.0-4.8) L Monocytes # (Auto) 0.7 x10^3/uL (0.0-1.1) Eosinophils # (Auto) 0.0 x10^3/uL (0.0-0.7) Basophils # (Auto) 0.0 x10^3/uL (0.0-0.2) Segmented Neutrophils % 92 % (35-66) H Lymphocytes % 5 % (24-48) L Monocytes % 2 % (0-10) Basophils % 1 % (0-3) Toxic Granulation Slight Platelet Estimate Adequate (ADEQUATE) Anisocytosis Mod Sodium Level 129 mmol/L (136-145) L Potassium Level 3.1 mmol/L (3.5-5.1) L Chloride Level 90 mmol/L (98-107) L Carbon Dioxide Level 27 mmol/L (21-32) Anion Gap 12 (6-14) Blood Urea Nitrogen 9 mg/dL (8-26) Creatinine 1.5 mg/dL (0.7-1.3) H Estimated GFR (Cockcroft-Gault) 54.2 BUN/Creatinine Ratio 6 (6-20) Glucose Level 316 mg/dL (70-99) H Calcium Level 10.2 mg/dL (8.5-10.1) H Total Bilirubin 3.1 mg/dL (0.2-1.0) H Aspartate Amino Transferase (AST) 28 U/L (15-37) Alanine Aminotransferase (ALT) 35 U/L (16-63) Alkaline Phosphatase 148 U/L (46-116) H Total Protein 7.4 g/dL (6.4-8.2) Albumin 3.8 g/dL (3.4-5.0) Albumin/Globulin Ratio 1.1 (1.0-1.7) Lipase 1010 U/L (73-393) H Ethyl Alcohol Level < 10 mg/dL (0-10) Laboratory Tests 09/13/18 04:05 Laboratory Tests 09/13/18 04:05 EKG EKG [] Radiology/Procedures Radiology/Procedures [] Course & Med Decision Making Course & Med Decision Making Pertinent Labs and Imaging studies reviewed. (See chart for details) [] Dragon Disclaimer Dragon Disclaimer This electronic medical record was generated, in whole or in part, using a voice recognition dictation system. Departure Departure Impression: Primary Impression: Acute pancreatitis Additional Impression: Alcohol withdrawal Disposition: ADMITTED INPATIENT Admitting Physician: Other Condition: IMPROVED (Obiozor) Referrals: UNKNOWN PCP NAME (PCP) Problem Qualifiers Primary Impression: Acute pancreatitis Pancreatitis type: unspecified pancreatitis type Acute pancreatitis complication: unspecified Qualified Codes: K85.90 - Acute pancreatitis without necrosis or infection, unspecified Additional Impression: Alcohol withdrawal Complication of substance-induced condition: uncomplicated Qualified Codes: F10.230 - Alcohol dependence with withdrawal, uncomplicated CAROLYN DORADO Jr. DO Sep 13, 2018 05:31
[2018-09-13] MEDS ORDERED: fentaNYL PF VIAL 100 MCG/2 ML VIAL IV ONE (06:00)
[2018-09-13] MEDS ORDERED: fentaNYL PF VIAL 100 MCG/2 ML VIAL IV PRN (06:00)
[2018-09-13] MEDS ORDERED: ACETAMINOPHEN 325 MG TABLET. PO PRN (06:00)
--- NOTE | 2018-09-13 06:17 | RAD ---
INDICATION: abd pain; pancreatitis, ALCOHOL WITHDRAWL COMPARISON: May 17, 2018 TECHNIQUE: Axial CT images obtained through the abdomen and pelvis without contrast. Limited assessment of solid organ structures and vasculature secondary to lack of intravenous contrast.. One or more of the following individualized dose reduction techniques were utilized for this examination: 1. Automated exposure control; 2. Adjustment of the mA and/or kV according to patient size; 3. Use of iterative reconstruction technique. FINDINGS: Abdominal aorta is not aneurysmal. No intrahepatic bile duct dilation. Liver appears borderline low attenuation. Nonspecific but can be seen with fatty infiltration. Edema surrounding the pancreas with some calcifications at pancreas. Low-density adjacent to falciform ligament. Common location for focal fat. Spleen unremarkable. No left-sided hydronephrosis. Urinary bladder is partially distended. No right-sided hydronephrosis. No periappendiceal inflammation. No dilated loops of bowel to suggest obstruction. Degenerative changes throughout the spine with some disc protrusions and osteophyte formation. Mild bowing of the superior endplates of some of the vertebral bodies including T10 and T11. Could be Schmorl's nodes or mild compression deformity IMPRESSION: 1. Edema and calcifications at the pancreas which could be secondary to acute on chronic pancreatitis. Electronically signed by: Pradeep Goldman MD (09/13/2018 6:13 AM) [facility]
[2018-09-13 07:00] VITALS: BP 105/85
[2018-09-13] MEDS: IV NORMAL SALINE 1000ML BAG 1,000 ML IV SCH ×3 (07:32→20:22)
--- NOTE | 2018-09-13 07:45 | PDOC1 ---
History and Physical Date of Admission Date of Admission DATE: 09/13/18 TIME: 07:41 Identification/Chief Complaint Chief Complaint Abdominal Pain Source Source: Chart review, Patient History of Present Illness History of Present Illness 33-year-old male w/ PMHx alcohol/substance abuse, GERD, pancreatitis, fatty liver, HTN, IDDM, GERD, schizophrenia, anxiety, depression, previous suicide attempt, h/o sepsis w/ seizure, HPV, rib and C7 fractures who presents with complaint of mid to upper abdominal pain that started couple days ago and states that has been progressively worsening. He reports to having nausea and vomiting and is unable to keep anything down. Patient states that he has a history of pancreatitis and believes that he is having an episode of pancreatitis. He does admit to heavy alcohol abuse and states that it has been 3 days since his last drink. Patient does indicate that he is getting very shaky and states that he does have a history of delirium tremens with seizures. Patient states that there are no alleviating factors. He states that symptoms are worsened if he tries to eat or drink anything. In ED noted with Sodium 129, K 3.1, Cr 1.5, glucose 316, bili 3.1, ALP 148, Lipase 1010, and WBC 12K. H/o recurrent alcoholic pancreatitis, hepatic steatosis w/ elevated LFTs, and severe reflux. EGD on 02/09/18 (performed by Dr. Lyle for hematemesis and anemia) showed severe (Grade D) reflux esophagitis, normal stomach (biopsy negative for H. pylori), extensive ulceration in distal duodenal bulb into proximal second portion. Recommended chronic PPI use. Denies NSAIDs but takes ASA sometimes. Has been out of pantoprazole for about a week. Still drinking heavily. Hepatitis serologies negative in 2014. Past Medical History Cardiovascular: HTN GI: GERD, Other Psych: Anxiety, Addictions, Depression, Schizophrenia Past Surgical History Past Surgical History: No pertinent history Family History Family History: Hypertension Social History Smoke: 1 pack per day ALCOHOL: heavy Drugs: None Current Problem List Problem List Problems Medical Problems: (1) Acute pancreatitis Status: Acute (2) Alcohol withdrawal Status: Acute Current Medications Current Medications Current Medications Fentanyl Citrate (Fentanyl 2ml Vial) 25 mcg PRN Q15MIN PRN IV PAIN GREATER THAN 3/10 Last administered on 09/13/18at 05:33; Start 09/13/18 at 04:30; Stop at 04:29 Sodium Chloride 1,000 ml @ 1,000 mls/hr Q1H IV Last administered on 09/13/18at 04:56; Start 09/13/18 at 04:30; Stop 09/13/18 at 05:29; Status DC Ondansetron HCl (Zofran) 4 mg 1X ONCE IV Last administered on 09/13/18at 04:52 ; Start 09/13/18 at 04:30; Stop 09/13/18 at 04:31; Status DC Lorazepam (Ativan) 1 mg 1X ONCE IV Last administered on 09/13/18at 04:54; Start 09/13/18 at 04:30; Stop 09/13/18 at 04:31; Status DC Ondansetron HCl (Zofran) 4 mg 1X ONCE IV Last administered on 09/13/18at 05:48 ; Start 09/13/18 at 05:45; Stop 09/13/18 at 05:59; Status DC Fentanyl Citrate (Fentanyl 2ml Vial) 25 mcg 1X ONCE IV Last administered on at 06:18; Start 09/13/18 at 06:00; Stop 09/13/18 at 06:01; Status DC Lorazepam (Ativan) 1 mg 1X ONCE IV Last administered on 09/13/18at 06:17; Start 09/13/18 at 06:00; Stop 09/13/18 at 06:01; Status DC Ondansetron HCl (Zofran) 4 mg PRN Q8HRS PRN IV NAUSEA/VOMITING; Start 09/13/18 at 06:00; Stop 09/14/18 at 05:59 Fentanyl Citrate (Fentanyl 2ml Vial) 50 mcg PRN Q2HR PRN IV PAIN; Start at 06:00; Stop 09/14/18 at 05:59 Sodium Chloride 1,000 ml @ 125 mls/hr Q8H IV Last administered on 09/13/18at 07 :32; Start 09/13/18 at 06:00; Stop 09/14/18 at 05:59 Acetaminophen (Tylenol) 650 mg PRN Q4HRS PRN PO FEVER; Start 09/13/18 at 06:00 ; Stop 09/14/18 at 05:59 Active Scripts Active Ativan (Lorazepam) 1 Mg Tablet 0.5 Mg PO PRN Q8HRS PRN Protonix (Pantoprazole Sodium) 20 Mg Tablet.dr 40 Mg PO DAILY 30 Days [place] 5-325 Tablet (Acetaminophen/Hydrocodone Bitart) 1 Each Tablet 1 Tab PO Q6HRS PRN Humalog (Insulin Lispro) 100 Unit/1 Ml Insuln.pen 10 Units SQ TIDAC 30 Days Lantus Solostar (Insulin Glargine,Hum.rec.anlog) 100 Unit/1 Ml Insuln.pen 30 Units SQ QHS 30 Days Zofran Odt (Ondansetron) 4 Mg Tab.rapdis 1 Tab SL Q4HRS PRN Reported Benadryl (Diphenhydramine Hcl) 25 Mg Capsule 50 Mg PO QHS Melatonin 3 Mg Tablet 1 Tab PO QHS Folic Acid 1 Mg Tablet 1 Tab PO DAILY Mirtazapine 30 Mg Tablet 1 Tab PO QHS Haloperidol 5 Mg Tablet 10 Mg PO BID Trazodone Hcl 150 Mg Tablet 50 Mg PO HS Allergies Allergies: Coded Allergies: No Known Drug Allergies (Unverified , 05/18/18) ROS General: YES: Fatigue, Malaise PSYCHOLOGICAL ROS: YES: Anxiety, Behavioral Disorder, Disorientation, Hallucinations; No: Concentration difficultie, Decreased libido, Depression, Hostility, Irritablity, Memory difficulties, Mood Swings, Obsessive thoughts, Physical abuse, Sexual abuse, Sleep disturbances, Suicidal ideation, Other Eyes: No Blurry vision, No Decreased vision, No Double vision, No Dry eyes, No Excessive tearing, No Eye Pain, No Itchy Eyes, No Loss of vision, No Photophobia , No Scotomata, No Uses contacts, No Uses glasses, No Other HEENT: No: Heacaches, Visual Changes, Hearing change, Nasal congestion, Nasal discharge, Oral lesions, Sinus pain, Sore Throat, Epistaxis, Sneezing, Snoring, Tinnitus, Vertigo, Vocal changes, Other ALLERGY AND IMMUNOLOGY: No: Hives, Insect Bite Sensitivity, Itchy/Watery Eyes, Nasal Congestion, Post Nasal Drip, Seasonal Allergies, Other Hematological and Lymphatic: No: Bleeding Problems, Blood Clots, Blood Transfusions, Brusing, Night Sweats, Pallor, Swollen Lymph Nodes, Other ENDOCRINE: No: Breast Changes, Galactorrhea, Hair Pattern Changes, Hot Flashes , Malaise/lethargy, Mood Swings, Palpitations, Polydipsia/polyuria, Skin Changes , Temperature Intolerance, Unexpected Weight Changes, Other Breast: No New/Changing Breast Lumps, No Nipple changes, No Nipple discharge, No Other Respiratory: No: Cough, Hemoptysis, Orthopnea, Pleuritic Pain, Shortness of breath, SOB with excertion, Sputum Changes, Stridor, Tachypnea, Wheezing, Other Cardiovascular: No Chest Pain, No Palpitations, No Orthopnea, No Paroxysmal Noc. Dyspnea, No Edema, No Lt Headedness, No Other Gastrointestinal: Yes Nausea, Yes Vomiting, Yes Abdominal Pain; No Diarrhea, No Constipation, No Melena, No Hematochezia, No Other Genitourinary: No Dysuria, No Frequency, No Incontinence, No Hematuria, No Retention, No Discharge, No Urgency, No Pain, No Flank Pain, No Other, No , No , No , No , No , No , No Musculoskeletal: No Gait Disturbance, No Joint Pain, No Joint Stiffness, No Joint Swelling, No Muscle Pain, No Muscular Weakness, No Pain In:, No Swelling In:, No Other Neurological: No Behavorial Changes, No Bowel/Bladder ControlChng, No Confusion , No Dizziness, No Gait Disturbance, No Headaches, No Impaired Coord/balance, No Memory Loss, No Numbness/Tingling, No Seizures, No Speech Problems, No Tremors, No Visual Changes, No Weakness, No Other Skin: No Dry Skin, No Eczema, No Hair Changes, No Lumps, No Mole Changes, No Mottling, No Nail Changes, No Pruritus, No Rash, No Skin Lesion Changes, No Other, No Acne Physical Exam General: Alert, Cooperative, No acute distress HEENT: Atraumatic, PERRLA, EOMI, Mucous membr. moist/pink Lungs: Clear to auscultation, Normal air movement Heart: S1S2, RRR, no gallops, no murmurs Abdomen: Normal bowel sounds, Soft, No hepatosplenomegaly, No masses, Other ( Diffuse tenderness) Rectal Exam: not examined Extremities: No clubbing, No cyanosis, No edema, Normal pulses, No tenderness/ swelling Skin: No rashes, No breakdown, No significant lesion Neuro: Normal gait, Normal speech, Strength at 5/5 X4 ext, Normal tone, Sensation intact, Cranial nerves 3-12 NL, Reflexes 2+ Psych/Mental Status: Mental status NL, Mood NL Vitals Vitals Vital Signs Date Time Temp Pulse Resp B/P (MAP) Pulse Ox O2 Delivery O2 Flow Rate FiO2 09/13/18 06:18 20 100 Room Air 09/13/18 05:54 112 95/50 (65) 09/13/18 04:14 98.0 98.0 Labs Labs Laboratory Tests Test 09/13/18 04:05 White Blood Count 12.2 x10^3/uL (4.0-11.0) Red Blood Count 5.57 x10^6/uL (4.30-5.70) Hemoglobin 14.4 g/dL (13.0-17.5) Hematocrit 42.1 % (39.0-53.0) Mean Corpuscular Volume 76 fL (79-100) Mean Corpuscular Hemoglobin 26 pg (25-35) Mean Corpuscular Hemoglobin Concent 34 g/dL (31-37) Red Cell Distribution Width 22.2 % (11.5-14.5) Platelet Count 260 x10^3/uL (140-400) Neutrophils (%) (Auto) 88 % (31-73) Lymphocytes (%) (Auto) 6 % (24-48) Monocytes (%) (Auto) 6 % (0-9) Eosinophils (%) (Auto) 0 % (0-3) Basophils (%) (Auto) 0 % (0-3) Neutrophils # (Auto) 10.7 x10^3uL (1.8-7.7) Lymphocytes # (Auto) 0.7 x10^3/uL (1.0-4.8) Monocytes # (Auto) 0.7 x10^3/uL (0.0-1.1) Eosinophils # (Auto) 0.0 x10^3/uL (0.0-0.7) Basophils # (Auto) 0.0 x10^3/uL (0.0-0.2) Segmented Neutrophils % 92 % (35-66) Lymphocytes % 5 % (24-48) Monocytes % 2 % (0-10) Basophils % 1 % (0-3) Toxic Granulation Slight Platelet Estimate Adequate (ADEQUATE) Anisocytosis Mod Sodium Level 129 mmol/L (136-145) Potassium Level 3.1 mmol/L (3.5-5.1) Chloride Level 90 mmol/L (98-107) Carbon Dioxide Level 27 mmol/L (21-32) Anion Gap 12 (6-14) Blood Urea Nitrogen 9 mg/dL (8-26) Creatinine 1.5 mg/dL (0.7-1.3) Estimated GFR (Cockcroft-Gault) 54.2 BUN/Creatinine Ratio 6 (6-20) Glucose Level 316 mg/dL (70-99) Calcium Level 10.2 mg/dL (8.5-10.1) Total Bilirubin 3.1 mg/dL (0.2-1.0) Aspartate Amino Transf (AST/SGOT) 28 U/L (15-37) Alanine Aminotransferase (ALT/SGPT) 35 U/L (16-63) Alkaline Phosphatase 148 U/L (46-116) Total Protein 7.4 g/dL (6.4-8.2) Albumin 3.8 g/dL (3.4-5.0) Albumin/Globulin Ratio 1.1 (1.0-1.7) Lipase 1010 U/L (73-393) Ethyl Alcohol Level < 10 mg/dL (0-10) Laboratory Tests Test 09/13/18 04:05 White Blood Count 12.2 x10^3/uL (4.0-11.0) Red Blood Count 5.57 x10^6/uL (4.30-5.70) Hemoglobin 14.4 g/dL (13.0-17.5) Hematocrit 42.1 % (39.0-53.0) Mean Corpuscular Volume 76 fL (79-100) Mean Corpuscular Hemoglobin 26 pg (25-35) Mean Corpuscular Hemoglobin Concent 34 g/dL (31-37) Red Cell Distribution Width 22.2 % (11.5-14.5) Platelet Count 260 x10^3/uL (140-400) Neutrophils (%) (Auto) 88 % (31-73) Lymphocytes (%) (Auto) 6 % (24-48) Monocytes (%) (Auto) 6 % (0-9) Eosinophils (%) (Auto) 0 % (0-3) Basophils (%) (Auto) 0 % (0-3) Neutrophils # (Auto) 10.7 x10^3uL (1.8-7.7) Lymphocytes # (Auto) 0.7 x10^3/uL (1.0-4.8) Monocytes # (Auto) 0.7 x10^3/uL (0.0-1.1) Eosinophils # (Auto) 0.0 x10^3/uL (0.0-0.7) Basophils # (Auto) 0.0 x10^3/uL (0.0-0.2) Segmented Neutrophils % 92 % (35-66) Lymphocytes % 5 % (24-48) Monocytes % 2 % (0-10) Basophils % 1 % (0-3) Toxic Granulation Slight Platelet Estimate Adequate (ADEQUATE) Anisocytosis Mod Sodium Level 129 mmol/L (136-145) Potassium Level 3.1 mmol/L (3.5-5.1) Chloride Level 90 mmol/L (98-107) Carbon Dioxide Level 27 mmol/L (21-32) Anion Gap 12 (6-14) Blood Urea Nitrogen 9 mg/dL (8-26) Creatinine 1.5 mg/dL (0.7-1.3) Estimated GFR (Cockcroft-Gault) 54.2 BUN/Creatinine Ratio 6 (6-20) Glucose Level 316 mg/dL (70-99) Calcium Level 10.2 mg/dL (8.5-10.1) Total Bilirubin 3.1 mg/dL (0.2-1.0) Aspartate Amino Transf (AST/SGOT) 28 U/L (15-37) Alanine Aminotransferase (ALT/SGPT) 35 U/L (16-63) Alkaline Phosphatase 148 U/L (46-116) Total Protein 7.4 g/dL (6.4-8.2) Albumin 3.8 g/dL (3.4-5.0) Albumin/Globulin Ratio 1.1 (1.0-1.7) Lipase 1010 U/L (73-393) Ethyl Alcohol Level < 10 mg/dL (0-10) Images Images CT Abd/pelv - 1. Edema and calcifications at the pancreas which could be secondary to acute on chronic pancreatitis. VTE Prophylaxis Ordered VTE Prophylaxis Devices: Contraindicated VTE Pharmacological Prophylaxi: Yes Assessment/Plan Assessment/Plan A/P: Abd pain - seems to be acute pancreatitis, lipase 1010, likely alcoholic. NPO, pain control. Unfortunately we will have to be careful with IV pain meds as he grabbed the fentanyl and push it himself today. ANSON - likely vasomotor from dehydration with ETOH abuse and vomiting, Cr 1.5, will give IVF aggressively GERD, reflux esophagitis on EGD - will cont PPI Alcohol abuse - on CIWA, has needed high doses of ativan previously Diabetes - sliding scale q 4 hours Hypertension - cont meds h/o seizures - cont ativan Schizophrenia - will cont home meds Hiccups - add thorazine to his regimen, this may help his psychosis as well Anxiety - likely related to his substance use disorder and schizophrenia - will cont anxiolytics Hyponatremia - 129, will give IVF Hyperglycemia - sliding scale Hypokalemia - IVF replacement FEN - NPO, IVF PPX - ambulatory FULL CODE, though he states he wishes to be DNR his schizophrenia is fairly profound. I will d/w his father. I would need another physician to agree on his mental status to change code status Inpatient for at least 2 midnights for alcoholic pancreatitis with multiple comorbids. His discharge will be challenging given his mental health. Consult YONATAN TRAN MD Sep 13, 2018 07:45
[2018-09-13] MEDS: ONDANSETRON PF 4 MG/2 ML VIAL. IV PRN (07:56)
[2018-09-13] MEDS ORDERED: cloNIDine HCL 0.1 MG TABLET PO PRN (08:00)
[2018-09-13] MEDS ORDERED: LORazepam 1 MG TABLET PO PRN (08:00)
[2018-09-13] MEDS ORDERED: DEXTROSE 50% 25 GM / 50ML DISP.SYRIN. IV PRN (08:00)
[2018-09-13] MEDS: INSULIN LISPRO 300 UNITS/3 ML INSULN.PEN. SQ SCH ×7 (08:00→23:39)
[2018-09-13] MEDS ORDERED: PANTOPRAZOLE 40 MG TABLET.DR. PO SCH (08:30)
[2018-09-13] MEDS: POTASSIUM CL 20MEQ-0.45% NACL 1,000 ML IV SCH ×4 (08:30→23:38)
[2018-09-13] MEDS: HALOPERIDOL 5 MG TABLET. PO SCH ×2 (09:00→20:48)
[2018-09-13] MEDS: MULTIVIT INFUSN,ADULT 4,VIT K 10 ML, THIAMINE INJ 100 MG, FOLIC ACID INJ 1 MG in IV NOR... IV SCH (09:13)
[2018-09-13] MEDS ORDERED: diphenhydrAMINE HCL 25 MG CAPSULE PO PRN (09:15)
[2018-09-13] MEDS ORDERED: METOPROLOL TARTRATE 5 MG/5 ML VIAL. IVP ONE (10:15)
[2018-09-13] MEDS ORDERED: LABETALOL 20 MG/4 ML DISP.SYRIN. IVP ONE (10:15)
[2018-09-13 11:00] VITALS: BP 129/95
[2018-09-13] MEDS: NICOTINE 21MG PATCH. TD SCH (12:01)
[2018-09-13] MEDS: HYDROcodone/APAP 5/325MG 1 TAB TABLET PO PRN ×2 (12:04→23:48)
[2018-09-13] MEDS: HEPARIN for SUB-Q USE 5,000 UNIT/ML VIAL. SQ SCH ×2 (13:27→20:50)
--- NOTE | 2018-09-13 13:27 | PDOC2 ---
GI CONSULT Reason For Consult: Pancreatitis HPI: HPI: 33 y/o male known to us. Presented this occasion with few days abdominal pain, N, V. Poor historian this afternoon; seemed quite interested in the sanitary hand wipes. Known h/o alcohol abuse with prior pancreatitis. H/o withdrawal problems as well. No h/o alcoholic liver disease above steatosis clinically; prior HBV and HCV serologies negative.. Had not drank for couple of days before presentation (undetectable ethanol on testing). No hematemesis. Seen 05/2018 for UGI bleeding. At EGD, severe reflux esophagitis and extensive duodenal ulceration. Recommended PPI daily then; compliance unclear. Biopsies were negative for H.pylori then. No complaints of ongoing diarrhea, constipation, overt bleeding this time. PMH: PMH: Alcohol/substance abuse, HTN, DM, schizophrenia, anxiety, depression, prior suicide attempt, "sepsis" with seizure, HPV, rib and C7 fractures. No surgeries I am aware of. FH: Family History: No pertinent hx Social History: Smoke: 1 pack per day ALCOHOL: heavy Drugs: None ROS: Confused, not reliable. Vitals: Vitals: Vital Signs Date Time Temp Pulse Resp B/P (MAP) Pulse Ox O2 Delivery O2 Flow Rate FiO2 09/13/18 12:04 Room Air 09/13/18 11:00 97.6 91 16 129/95 (106) 100 97.6 Labs: Labs: Laboratory Tests Test 09/13/18 04:05 09/13/18 08:04 09/13/18 11:45 White Blood Count 12.2 x10^3/uL (4.0-11.0) Red Blood Count 5.57 x10^6/uL (4.30-5.70) Hemoglobin 14.4 g/dL (13.0-17.5) Hematocrit 42.1 % (39.0-53.0) Mean Corpuscular Volume 76 fL (79-100) Mean Corpuscular Hemoglobin 26 pg (25-35) Mean Corpuscular Hemoglobin Concent 34 g/dL (31-37) Red Cell Distribution Width 22.2 % (11.5-14.5) Platelet Count 260 x10^3/uL (140-400) Neutrophils (%) (Auto) 88 % (31-73) Lymphocytes (%) (Auto) 6 % (24-48) Monocytes (%) (Auto) 6 % (0-9) Eosinophils (%) (Auto) 0 % (0-3) Basophils (%) (Auto) 0 % (0-3) Neutrophils # (Auto) 10.7 x10^3uL (1.8-7.7) Lymphocytes # (Auto) 0.7 x10^3/uL (1.0-4.8) Monocytes # (Auto) 0.7 x10^3/uL (0.0-1.1) Eosinophils # (Auto) 0.0 x10^3/uL (0.0-0.7) Basophils # (Auto) 0.0 x10^3/uL (0.0-0.2) Segmented Neutrophils % 92 % (35-66) Lymphocytes % 5 % (24-48) Monocytes % 2 % (0-10) Basophils % 1 % (0-3) Toxic Granulation Slight Platelet Estimate Adequate (ADEQUATE) Anisocytosis Mod Activated Partial Thromboplast Time 30 SEC (24-38) Sodium Level 129 mmol/L (136-145) Potassium Level 3.1 mmol/L (3.5-5.1) Chloride Level 90 mmol/L (98-107) Carbon Dioxide Level 27 mmol/L (21-32) Anion Gap 12 (6-14) Blood Urea Nitrogen 9 mg/dL (8-26) Creatinine 1.5 mg/dL (0.7-1.3) Estimated GFR (Cockcroft-Gault) 54.2 BUN/Creatinine Ratio 6 (6-20) Glucose Level 316 mg/dL (70-99) Calcium Level 10.2 mg/dL (8.5-10.1) Total Bilirubin 3.1 mg/dL (0.2-1.0) Aspartate Amino Transf (AST/SGOT) 28 U/L (15-37) Alanine Aminotransferase (ALT/SGPT) 35 U/L (16-63) Alkaline Phosphatase 148 U/L (46-116) Total Protein 7.4 g/dL (6.4-8.2) Albumin 3.8 g/dL (3.4-5.0) Albumin/Globulin Ratio 1.1 (1.0-1.7) Lipase 1010 U/L (73-393) Ethyl Alcohol Level < 10 mg/dL (0-10) Glucose (Fingerstick) 112 mg/dL (70-99) 111 mg/dL (70-99) Lipase bordering on 3x normal. Allergies: Coded Allergies: No Known Drug Allergies (Unverified , 05/18/18) Medications: Current Medications Medications (Trade) Dose Ordered Sig/Jamey Route PRN Reason Start Time Stop Time Status Last Admin Dose Admin Fentanyl Citrate (Fentanyl 2ml Vial) 25 mcg PRN Q15MIN PRN IV PAIN GREATER THAN 3/10 09/13/18 04:30 09/14/18 04:29 09/13/18 05:33 Sodium Chloride 1,000 ml @ 1,000 mls/hr Q1H IV 09/13/18 04:30 09/13/18 05:29 DC 09/13/18 04:56 Ondansetron HCl (Zofran) 4 mg 1X ONCE IV 09/13/18 04:30 09/13/18 04:31 DC 09/13/18 04:52 Lorazepam (Ativan) 1 mg 1X ONCE IV 09/13/18 04:30 09/13/18 04:31 DC 09/13/18 04:54 Ondansetron HCl (Zofran) 4 mg 1X ONCE IV 09/13/18 05:45 09/13/18 05:59 DC 09/13/18 05:48 Fentanyl Citrate (Fentanyl 2ml Vial) 25 mcg 1X ONCE IV 09/13/18 06:00 09/13/18 06:01 DC 09/13/18 06:18 Lorazepam (Ativan) 1 mg 1X ONCE IV 09/13/18 06:00 09/13/18 06:01 DC 09/13/18 06:17 Ondansetron HCl (Zofran) 4 mg PRN Q8HRS PRN IV NAUSEA/VOMITING 09/13/18 06:00 09/14/18 05:59 09/13/18 07:56 Fentanyl Citrate (Fentanyl 2ml Vial) 50 mcg PRN Q2HR PRN IV PAIN 09/13/18 06:00 09/14/18 05:59 09/13/18 09:14 Sodium Chloride 1,000 ml @ 125 mls/hr Q8H IV 09/13/18 06:00 09/14/18 05:59 09/13/18 07:32 Multivitamins 10 ml/Thiamine HCl 100 mg/Folic Acid 1 mg/Sodium Chloride 1,011.2 ml @ 100 mls/ hr DAILY IV 09/13/18 09:00 09/17/18 19:07 09/13/18 09:13 Lorazepam (Ativan) 2 mg PRN Q1HR PRN IV For CIWA 8-14 09/13/18 08:00 09/13/18 10:15 Acetaminophen/ Hydrocodone Bitart (Lortab 5/325) 1 tab Q6HRS PRN PO PAIN MILD 09/13/18 08:00 09/13/18 12:04 Labetalol HCl (Normodyne Iv Push) 10 mg 1X ONCE IVP 09/13/18 10:15 09/13/18 10:16 DC 09/13/18 10:15 Chlorpromazine HCl (Thorazine) 10 mg PRN Q6HRS PRN PO HICCUPS 09/13/18 11:15 09/13/18 12:01 Nicotine (Nicoderm Cq 21mg) 1 patch DAILY TD 09/13/18 13:00 09/13/18 12:01 Lorazepam (Ativan) 4 mg PRN Q3HRS PRN IV ANXIETY / AGITATION 09/13/18 11:15 09/13/18 12:02 Imaging: Imaging: On CT: FINDINGS: Abdominal aorta is not aneurysmal. No intrahepatic bile duct dilation. Liver appears borderline low attenuation. Nonspecific but can be seen with fatty infiltration. Edema surrounding the pancreas with some calcifications at pancreas. Low-density adjacent to falciform ligament. Common location for focal fat. Spleen unremarkable. No left-sided hydronephrosis. Urinary bladder is partially distended. No right-sided hydronephrosis. No periappendiceal inflammation. No dilated loops of bowel to suggest obstruction. Degenerative changes throughout the spine with some disc protrusions and osteophyte formation. Mild bowing of the superior endplates of some of the vertebral bodies including T10 and T11. Could be Schmorl's nodes or mild compression deformity IMPRESSION: 1. Edema and calcifications at the pancreas which could be secondary to acute on chronic pancreatitis. PE: GEN: NAD, confused HEENT: Atraumatic, PERRLA LUNGS: CTAB HEART: RRR, no murmurs ABD: NABS, S/ND, tender LUQ tending inferiorly, no masses EXTREMITY: No edema SKIN: No rashes, no jaundice NEURO/PSYCH: Confabulating? A/P: A/P: IMP: Relapse of chronic alcoholic pancreatitis. H/o GERD, ulcer--on therapy? Hepatic steatosis from alcohol. REC: NPO for now, IVF's, MVI, thiamine. Beware withdrawal. PPI, IV for now. Monitor labs, clinically. If pain improves, diet. Obviously, stop drinking. Have advised before. If clinically worsens, repeat CT re: acute pseudocyst. --other pending. Thanks. CLARA COLON MD Sep 13, 2018 13:27
[2018-09-13] MEDS: PANTOPRAZOLE IV PUSH 40 MG VIAL. IVP SCH (13:52)
[2018-09-13] MEDS: NICOTINE POLACRILEX 2MG GUM PACKAGE of 12. BC PRN (14:24)
[2018-09-13] MEDS ORDERED: chlorproMAZINE 25 MG TABLET PO PRN (14:57)
[2018-09-13 15:00] VITALS: BP 129/96
[2018-09-13] MEDS: chlordiazePOXIDE HCL 25 MG CAPSULE PO PRN ×2 (15:06→23:47)
[2018-09-13 19:00] VITALS: BP 127/89
[2018-09-13] MEDS: INSULIN GLARGINE 300 UNITS/3 ML INSULN.PEN. SQ SCH (20:49)
[2018-09-13] MEDS: diphenhydrAMINE HCL 25 MG CAPSULE PO SCH (20:49)
[2018-09-13] MEDS: traZODone 50 MG TABLET. PO SCH (20:49)
[2018-09-13] MEDS ORDERED: MIRTAZAPINE 15 MG TABLET PO PRN (21:00)
[2018-09-13] MEDS ORDERED: NON FORMULARY ITEM (Melatonin 1 TAB) PO SCH (21:00)
[2018-09-13 23:11] VITALS: BP 134/87
[2018-09-14] MEDS: ONDANSETRON PF 4 MG/2 ML VIAL. IV PRN (02:35)
[2018-09-14 02:43] VITALS: BP 133/92
[2018-09-14] MEDS: INSULIN LISPRO 300 UNITS/3 ML INSULN.PEN. SQ SCH ×8 (04:00→20:00)
[2018-09-14 05:13] LABS: BILIRUBIN,URINE NEGATIVE (NEG); CLARITY,URINE CLEAR; COLOR,URINE AMBER; NITRITE,URINE NEGATIVE (NEG); PH,URINE 5.5; PROTEIN,URINE NEGATIVE (NEG-TRACE); UROBILINOGEN,URINE 0.2 mg/dL (0.2 mg/dL)
[2018-09-14 05:21] LABS: BARBITURATES NEG (NEG); BENZODIAZEPINES NEG (NEG); CANNABINOIDS NEG (NEG); COCAINE NEG (NEG); METHADONE NEG (NEG); OPIATES POS (NEG); PHENCYCLIDINE NEG (NEG)
[2018-09-14 05:24] LABS: AMPHETAMINE/METHAMPHETAMINE NEG (NEG)
[2018-09-14 05:26] LABS: BACTERIA,URINE 0 /HPF (0-FEW); RBC,URINE OCC /HPF (0-2); SQUAMOUS EPITHELIAL CELL,UR OCC /LPF; WBC,URINE 0 /HPF (0-4)
[2018-09-14] MEDS: HEPARIN for SUB-Q USE 5,000 UNIT/ML VIAL. SQ SCH ×3 (06:00→20:53)
[2018-09-14 06:47] LABS: BASO % 1 % (0-3); EOS # 0.1 x10^3/uL (0.0-0.7); EOS % 1 % (0-3); HEMATOCRIT 36.7 % (39.0-53.0); HEMOGLOBIN 12.1 g/dL (13.0-17.5); LYMPH # 1.6 x10^3/uL (1.0-4.8); LYMPH % 18 % (24-48); MEAN CORPUSCULAR HEMOGLOBIN 25 pg (25-35); MEAN CORPUSCULAR HGB CONC 33 g/dL (31-37); MEAN CORPUSCULAR VOLUME 77 fL (79-100); MONO # 0.9 x10^3/uL (0.0-1.1); MONO % 10 % (0-9); NEUT # 6.2 x10^3uL (1.8-7.7); NEUT % 70 % (31-73); PLATELET COUNT 175 x10^3/uL (140-400); RED BLOOD COUNT 4.75 x10^6/uL (4.30-5.70); RED CELL DISTRIBUTION WIDTH 21.7 % (11.5-14.5); WHITE BLOOD COUNT 8.9 x10^3/uL (4.0-11.0)
[2018-09-14 07:14] LABS: CALCIUM 8.3 mg/dL (8.5-10.1); GFR 86.6
[2018-09-14 07:17] LABS: POTASSIUM 2.4 mmol/L (3.5-5.1)
[2018-09-14] MEDS: HALOPERIDOL 5 MG TABLET. PO SCH ×2 (07:42→20:51)
[2018-09-14] MEDS: PANTOPRAZOLE IV PUSH 40 MG VIAL. IVP SCH (07:42)
[2018-09-14] MEDS: HYDROcodone/APAP 5/325MG 1 TAB TABLET PO PRN ×2 (07:43→17:23)
[2018-09-14] MEDS: NICOTINE 21MG PATCH. TD SCH (07:44)
[2018-09-14 07:48] VITALS: BP 124/88
[2018-09-14] MEDS: NICOTINE POLACRILEX 2MG GUM PACKAGE of 12. BC PRN (08:02)
[2018-09-14] MEDS: ONDANSETRON ODT 4 MG TAB.RAPDIS. PO PRN ×2 (08:02→12:09)
[2018-09-14] MEDS: POTASSIUM CL 20MEQ-0.45% NACL 1,000 ML IV SCH ×3 (08:37→17:24)
[2018-09-14] MEDS ORDERED: NICOTINE 21MG PATCH. TD SCH (09:00)
--- NOTE | 2018-09-14 09:15 | NUR ---
SW consulted for dc needs. Chart reviewed. Pt lives at home with family and per RN, pt is detoxing from ETOH and is 1:1. Pt is sleepy and is not appropriate for PAT team evaluation today. SW will call the PAT team tomorrow to assess needs when pt is more awake. SW will continue to follow.
[2018-09-14] MEDS ORDERED: POTASSIUM CHLORIDE 20 MEQ TABLET.ER. PO ONE (11:15)
[2018-09-14 11:30] VITALS: BP 115/36
--- NOTE | 2018-09-14 11:42 | PDOC ---
PROGRESS NOTES Chief Complaint Chief Complaint CC: Abdominal pain History of Present Illness History of Present Illness Patient was seen and examined this morning. Patient was cooperative and conversational. Patient stated that he was still painful and is requesting more medication for the pain. Vitals Vitals Vital Signs Date Time Temp Pulse Resp B/P (MAP) Pulse Ox O2 Delivery O2 Flow Rate FiO2 09/14/18 07:48 98.3 88 16 124/88 (100) 97 Room Air 98.3 Physical Exam General: Alert, Oriented X3, Cooperative, No acute distress Heart: Regular rate, Normal S1, Normal S2 Lungs: Clear Abdomen: Normal bowel sounds, Soft, No hepatosplenomegaly, No masses Extremities: No clubbing, No cyanosis, No edema, Normal pulses, No tenderness/ swelling Skin: No rashes, No breakdown, No significant lesion Labs LABS Laboratory Tests Test 09/13/18 11:45 09/13/18 16:54 09/13/18 20:42 09/13/18 23:35 Glucose (Fingerstick) 111 mg/dL (70-99) 104 mg/dL (70-99) 79 mg/dL (70-99) 95 mg/dL (70-99) Test 09/14/18 03:34 09/14/18 05:00 09/14/18 05:15 09/14/18 07:40 Glucose (Fingerstick) 111 mg/dL (70-99) 95 mg/dL (70-99) Urine Collection Type Unknown Urine Color Baylee Urine Clarity Clear Urine pH 5.5 Urine Specific [place] 1.015 Urine Protein Negative mg/dL (NEG-TRACE) Urine Glucose (UA) Negative mg/dL (NEG) Urine Ketones (Stick) Negative mg/dL (NEG) Urine Blood Negative (NEG) Urine Nitrite Negative (NEG) Urine Bilirubin Negative (NEG) Urine Urobilinogen Dipstick 0.2 mg/dL (0.2 mg/dL) Urine Leukocyte Esterase Negative (NEG) Urine RBC Occ /HPF (0-2) Urine WBC 0 /HPF (0-4) Urine Squamous Epithelial Cells Occ /LPF Urine Bacteria 0 /HPF (0-FEW) Urine Mucus Slight /LPF Urine Opiates Screen Pos (NEG) Urine Methadone Screen Neg (NEG) Urine Barbiturates Neg (NEG) Urine Phencyclidine Screen Neg (NEG) Urine Amphetamine/Methamphetamine Neg (NEG) Urine Benzodiazepines Screen Neg (NEG) Urine Cocaine Screen Neg (NEG) Urine Cannabinoids Screen Neg (NEG) Urine Ethyl Alcohol Neg (NEG) White Blood Count 8.9 x10^3/uL (4.0-11.0) Red Blood Count 4.75 x10^6/uL (4.30-5.70) Hemoglobin 12.1 g/dL (13.0-17.5) Hematocrit 36.7 % (39.0-53.0) Mean Corpuscular Volume 77 fL (79-100) Mean Corpuscular Hemoglobin 25 pg (25-35) Mean Corpuscular Hemoglobin Concent 33 g/dL (31-37) Red Cell Distribution Width 21.7 % (11.5-14.5) Platelet Count 175 x10^3/uL (140-400) Neutrophils (%) (Auto) 70 % (31-73) Lymphocytes (%) (Auto) 18 % (24-48) Monocytes (%) (Auto) 10 % (0-9) Eosinophils (%) (Auto) 1 % (0-3) Basophils (%) (Auto) 1 % (0-3) Neutrophils # (Auto) 6.2 x10^3uL (1.8-7.7) Lymphocytes # (Auto) 1.6 x10^3/uL (1.0-4.8) Monocytes # (Auto) 0.9 x10^3/uL (0.0-1.1) Eosinophils # (Auto) 0.1 x10^3/uL (0.0-0.7) Basophils # (Auto) 0.0 x10^3/uL (0.0-0.2) Prothrombin Time 14.0 SEC (11.7-14.0) Prothromb Time International Ratio 1.1 (0.8-1.1) Sodium Level 137 mmol/L (136-145) Potassium Level 2.4 mmol/L (3.5-5.1) Chloride Level 98 mmol/L (98-107) Carbon Dioxide Level 30 mmol/L (21-32) Anion Gap 9 (6-14) Blood Urea Nitrogen 7 mg/dL (8-26) Creatinine 1.0 mg/dL (0.7-1.3) Estimated GFR (Cockcroft-Gault) 86.6 Glucose Level 103 mg/dL (70-99) Calcium Level 8.3 mg/dL (8.5-10.1) Lipase 148 U/L (73-393) Review of Systems Review of Systems Heart: denies chest pain Lung: denies soa Integument: denies rash Assessment and Plan Assessmemt and Plan Assesment 1. Alcohol Withdrawal 2. Acute pancreatitis Plan 1. Alcohol withdrawal protocol 2. Banana bag for electrolyte replacement 3. Clear liquid diet 4. PT/OT 5. Discontinue 1-to-1 on the room 6. Home meds 7. Labs Comment Review of Relevant I have reviewed the following items patricia (where applicable) has been applied. Labs Laboratory Tests Test 09/13/18 04:05 09/13/18 08:04 09/13/18 11:45 09/13/18 16:54 White Blood Count 12.2 x10^3/uL (4.0-11.0) Red Blood Count 5.57 x10^6/uL (4.30-5.70) Hemoglobin 14.4 g/dL (13.0-17.5) Hematocrit 42.1 % (39.0-53.0) Mean Corpuscular Volume 76 fL (79-100) Mean Corpuscular Hemoglobin 26 pg (25-35) Mean Corpuscular Hemoglobin Concent 34 g/dL (31-37) Red Cell Distribution Width 22.2 % (11.5-14.5) Platelet Count 260 x10^3/uL (140-400) Neutrophils (%) (Auto) 88 % (31-73) Lymphocytes (%) (Auto) 6 % (24-48) Monocytes (%) (Auto) 6 % (0-9) Eosinophils (%) (Auto) 0 % (0-3) Basophils (%) (Auto) 0 % (0-3) Neutrophils # (Auto) 10.7 x10^3uL (1.8-7.7) Lymphocytes # (Auto) 0.7 x10^3/uL (1.0-4.8) Monocytes # (Auto) 0.7 x10^3/uL (0.0-1.1) Eosinophils # (Auto) 0.0 x10^3/uL (0.0-0.7) Basophils # (Auto) 0.0 x10^3/uL (0.0-0.2) Segmented Neutrophils % 92 % (35-66) Lymphocytes % 5 % (24-48) Monocytes % 2 % (0-10) Basophils % 1 % (0-3) Toxic Granulation Slight Platelet Estimate Adequate (ADEQUATE) Anisocytosis Mod Activated Partial Thromboplast Time 30 SEC (24-38) Sodium Level 129 mmol/L (136-145) Potassium Level 3.1 mmol/L (3.5-5.1) Chloride Level 90 mmol/L (98-107) Carbon Dioxide Level 27 mmol/L (21-32) Anion Gap 12 (6-14) Blood Urea Nitrogen 9 mg/dL (8-26) Creatinine 1.5 mg/dL (0.7-1.3) Estimated GFR (Cockcroft-Gault) 54.2 BUN/Creatinine Ratio 6 (6-20) Glucose Level 316 mg/dL (70-99) Calcium Level 10.2 mg/dL (8.5-10.1) Total Bilirubin 3.1 mg/dL (0.2-1.0) Aspartate Amino Transf (AST/SGOT) 28 U/L (15-37) Alanine Aminotransferase (ALT/SGPT) 35 U/L (16-63) Alkaline Phosphatase 148 U/L (46-116) Total Protein 7.4 g/dL (6.4-8.2) Albumin 3.8 g/dL (3.4-5.0) Albumin/Globulin Ratio 1.1 (1.0-1.7) Lipase 1010 U/L (73-393) Ethyl Alcohol Level < 10 mg/dL (0-10) Glucose (Fingerstick) 112 mg/dL (70-99) 111 mg/dL (70-99) 104 mg/dL (70-99) Test 09/13/18 20:42 09/13/18 23:35 09/14/18 03:34 09/14/18 05:00 Glucose (Fingerstick) 79 mg/dL (70-99) 95 mg/dL (70-99) 111 mg/dL (70-99) Urine Collection Type Unknown Urine Color Baylee Urine Clarity Clear Urine pH 5.5 Urine Specific [place] 1.015 Urine Protein Negative mg/dL (NEG-TRACE) Urine Glucose (UA) Negative mg/dL (NEG) Urine Ketones (Stick) Negative mg/dL (NEG) Urine Blood Negative (NEG) Urine Nitrite Negative (NEG) Urine Bilirubin Negative (NEG) Urine Urobilinogen Dipstick 0.2 mg/dL (0.2 mg/dL) Urine Leukocyte Esterase Negative (NEG) Urine RBC Occ /HPF (0-2) Urine WBC 0 /HPF (0-4) Urine Squamous Epithelial Cells Occ /LPF Urine Bacteria 0 /HPF (0-FEW) Urine Mucus Slight /LPF Urine Opiates Screen Pos (NEG) Urine Methadone Screen Neg (NEG) Urine Barbiturates Neg (NEG) Urine Phencyclidine Screen Neg (NEG) Urine Amphetamine/Methamphetamine Neg (NEG) Urine Benzodiazepines Screen Neg (NEG) Urine Cocaine Screen Neg (NEG) Urine Cannabinoids Screen Neg (NEG) Urine Ethyl Alcohol Neg (NEG) Test 09/14/18 05:15 09/14/18 07:40 White Blood Count 8.9 x10^3/uL (4.0-11.0) Red Blood Count 4.75 x10^6/uL (4.30-5.70) Hemoglobin 12.1 g/dL (13.0-17.5) Hematocrit 36.7 % (39.0-53.0) Mean Corpuscular Volume 77 fL (79-100) Mean Corpuscular Hemoglobin 25 pg (25-35) Mean Corpuscular Hemoglobin Concent 33 g/dL (31-37) Red Cell Distribution Width 21.7 % (11.5-14.5) Platelet Count 175 x10^3/uL (140-400) Neutrophils (%) (Auto) 70 % (31-73) Lymphocytes (%) (Auto) 18 % (24-48) Monocytes (%) (Auto) 10 % (0-9) Eosinophils (%) (Auto) 1 % (0-3) Basophils (%) (Auto) 1 % (0-3) Neutrophils # (Auto) 6.2 x10^3uL (1.8-7.7) Lymphocytes # (Auto) 1.6 x10^3/uL (1.0-4.8) Monocytes # (Auto) 0.9 x10^3/uL (0.0-1.1) Eosinophils # (Auto) 0.1 x10^3/uL (0.0-0.7) Basophils # (Auto) 0.0 x10^3/uL (0.0-0.2) Prothrombin Time 14.0 SEC (11.7-14.0) Prothromb Time International Ratio 1.1 (0.8-1.1) Sodium Level 137 mmol/L (136-145) Potassium Level 2.4 mmol/L (3.5-5.1) Chloride Level 98 mmol/L (98-107) Carbon Dioxide Level 30 mmol/L (21-32) Anion Gap 9 (6-14) Blood Urea Nitrogen 7 mg/dL (8-26) Creatinine 1.0 mg/dL (0.7-1.3) Estimated GFR (Cockcroft-Gault) 86.6 Glucose Level 103 mg/dL (70-99) Calcium Level 8.3 mg/dL (8.5-10.1) Lipase 148 U/L (73-393) Glucose (Fingerstick) 95 mg/dL (70-99) Laboratory Tests Test 09/13/18 11:45 09/13/18 16:54 09/13/18 20:42 09/13/18 23:35 Glucose (Fingerstick) 111 mg/dL (70-99) 104 mg/dL (70-99) 79 mg/dL (70-99) 95 mg/dL (70-99) Test 09/14/18 03:34 09/14/18 05:00 09/14/18 05:15 09/14/18 07:40 Glucose (Fingerstick) 111 mg/dL (70-99) 95 mg/dL (70-99) Urine Collection Type Unknown Urine Color [place]lee Urine Clarity Clear Urine pH 5.5 Urine Specific [place] 1.015 Urine Protein Negative mg/dL (NEG-TRACE) Urine Glucose (UA) Negative mg/dL (NEG) Urine Ketones (Stick) Negative mg/dL (NEG) Urine Blood Negative (NEG) Urine Nitrite Negative (NEG) Urine Bilirubin Negative (NEG) Urine Urobilinogen Dipstick 0.2 mg/dL (0.2 mg/dL) Urine Leukocyte Esterase Negative (NEG) Urine RBC Occ /HPF (0-2) Urine WBC 0 /HPF (0-4) Urine Squamous Epithelial Cells Occ /LPF Urine Bacteria 0 /HPF (0-FEW) Urine Mucus Slight /LPF Urine Opiates Screen Pos (NEG) Urine Methadone Screen Neg (NEG) Urine Barbiturates Neg (NEG) Urine Phencyclidine Screen Neg (NEG) Urine Amphetamine/Methamphetamine Neg (NEG) Urine Benzodiazepines Screen Neg (NEG) Urine Cocaine Screen Neg (NEG) Urine Cannabinoids Screen Neg (NEG) Urine Ethyl Alcohol Neg (NEG) White Blood Count 8.9 x10^3/uL (4.0-11.0) Red Blood Count 4.75 x10^6/uL (4.30-5.70) Hemoglobin 12.1 g/dL (13.0-17.5) Hematocrit 36.7 % (39.0-53.0) Mean Corpuscular Volume 77 fL (79-100) Mean Corpuscular Hemoglobin 25 pg (25-35) Mean Corpuscular Hemoglobin Concent 33 g/dL (31-37) Red Cell Distribution Width 21.7 % (11.5-14.5) Platelet Count 175 x10^3/uL (140-400) Neutrophils (%) (Auto) 70 % (31-73) Lymphocytes (%) (Auto) 18 % (24-48) Monocytes (%) (Auto) 10 % (0-9) Eosinophils (%) (Auto) 1 % (0-3) Basophils (%) (Auto) 1 % (0-3) Neutrophils # (Auto) 6.2 x10^3uL (1.8-7.7) Lymphocytes # (Auto) 1.6 x10^3/uL (1.0-4.8) Monocytes # (Auto) 0.9 x10^3/uL (0.0-1.1) Eosinophils # (Auto) 0.1 x10^3/uL (0.0-0.7) Basophils # (Auto) 0.0 x10^3/uL (0.0-0.2) Prothrombin Time 14.0 SEC (11.7-14.0) Prothromb Time International Ratio 1.1 (0.8-1.1) Sodium Level 137 mmol/L (136-145) Potassium Level 2.4 mmol/L (3.5-5.1) Chloride Level 98 mmol/L (98-107) Carbon Dioxide Level 30 mmol/L (21-32) Anion Gap 9 (6-14) Blood Urea Nitrogen 7 mg/dL (8-26) Creatinine 1.0 mg/dL (0.7-1.3) Estimated GFR (Cockcroft-Gault) 86.6 Glucose Level 103 mg/dL (70-99) Calcium Level 8.3 mg/dL (8.5-10.1) Lipase 148 U/L (73-393) Medications Current Medications Fentanyl Citrate (Fentanyl 2ml Vial) 25 mcg PRN Q15MIN PRN IV PAIN GREATER THAN 3/10 Last administered on 09/13/18at 05:33; Start 09/13/18 at 04:30; Stop at 20:38; Status DC Sodium Chloride 1,000 ml @ 1,000 mls/hr Q1H IV Last administered on 09/13/18at 04:56; Start 09/13/18 at 04:30; Stop 09/13/18 at 05:29; Status DC Ondansetron HCl (Zofran) 4 mg 1X ONCE IV Last administered on 09/13/18at 04:52 ; Start 09/13/18 at 04:30; Stop 09/13/18 at 04:31; Status DC Lorazepam (Ativan) 1 mg 1X ONCE IV Last administered on 09/13/18at 04:54; Start 09/13/18 at 04:30; Stop 09/13/18 at 04:31; Status DC Ondansetron HCl (Zofran) 4 mg 1X ONCE IV Last administered on 09/13/18at 05:48 ; Start 09/13/18 at 05:45; Stop 09/13/18 at 05:59; Status DC Fentanyl Citrate (Fentanyl 2ml Vial) 25 mcg 1X ONCE IV Last administered on at 06:18; Start 09/13/18 at 06:00; Stop 09/13/18 at 06:01; Status DC Lorazepam (Ativan) 1 mg 1X ONCE IV Last administered on 09/13/18at 06:17; Start 09/13/18 at 06:00; Stop 09/13/18 at 06:01; Status DC Ondansetron HCl (Zofran) 4 mg PRN Q8HRS PRN IV NAUSEA/VOMITING Last administered on 09/14/18at 02:35; Start 09/13/18 at 06:00; Stop 09/14/18 at 05:59 ; Status DC Fentanyl Citrate (Fentanyl 2ml Vial) 50 mcg PRN Q2HR PRN IV PAIN Last administered on 09/13/18at 09:14; Start 09/13/18 at 06:00; Stop 09/13/18 at 20:35 ; Status DC Sodium Chloride 1,000 ml @ 125 mls/hr Q8H IV Last administered on 09/13/18at 07 :32; Start 09/13/18 at 06:00; Stop 09/14/18 at 05:59; Status DC Acetaminophen (Tylenol) 650 mg PRN Q4HRS PRN PO FEVER; Start 09/13/18 at 06:00 ; Stop 09/14/18 at 05:59; Status DC Potassium Chloride/Sodium Chloride 1,000 ml @ 175 mls/hr Q5H43M IV Last administered on 09/14/18at 08:37; Start 09/13/18 at 08:30 Heparin Sodium (Porcine) (Heparin Sodium) 5,000 unit Q8HRS SQ ; Start 09/13/18 at 14:00 Insulin Human Lispro (HumaLOG) 0-9 UNITS Q4HRS SQ ; Start 09/13/18 at 08:00 Dextrose (Dextrose 50%-Water Syringe) 12.5 gm PRN Q15MIN PRN IV SEE COMMENTS; Start 09/13/18 at 08:00 Multivitamins 10 ml/Thiamine HCl 100 mg/Folic Acid 1 mg/Sodium Chloride 1,011.2 ml @ 100 mls/ hr DAILY IV Last administered on 09/13/18at 09:13; Start at 09:00; Stop 09/17/18 at 19:07 Lorazepam (Ativan) 2 mg PRN Q1HR PRN IV For CIWA 8-14 Last administered on 09/14at 07:43; Start 09/13/18 at 08:00 Clonidine HCl (Catapres) 0.1 mg PRN Q1HR PRN PO SBP > 180 or DBP > 100, MRX3; Start 09/13/18 at 08:00 Diphenhydramine HCl (Benadryl) 50 mg QHS PO Last administered on 09/13/18at 20: 49; Start 09/13/18 at 21:00 Folic Acid (Folic Acid) 1 mg DAILY PO ; Start 09/18/18 at 09:00 Haloperidol (Haldol) 10 mg BID PO Last administered on 09/14/18at 07:42; Start 09/13/18 at 09:00 Acetaminophen/ Hydrocodone Bitart (Lortab 5/325) 1 tab Q6HRS PRN PO PAIN MILD Last administered on 09/14/18at 07:43; Start 09/13/18 at 08:00 Insulin Glargine (Lantus) 30 units QHS SQ ; Start 09/13/18 at 21:00 Insulin Human Lispro (HumaLOG) 10 units TIDAC SQ ; Start 09/13/18 at 11:30 Lorazepam (Ativan) 0.5 mg PRN Q8HRS PRN PO ANXIETY / AGITATION 1st Choice; Start 09/13/18 at 08:00 Ondansetron HCl (Zofran Odt) 4 mg PRN Q4HRS PRN PO VOMITING; Start 09/13/18 at 08:00 Non-Formulary Medication (Melatonin ) 1 tab QHS PO ; Start 09/13/18 at 21:00; Status UNV Mirtazapine (Remeron) 15 mg PRN QHS PRN PO INSOMNIA Last administered on at 23:47; Start 09/13/18 at 21:00 Pantoprazole Sodium (Protonix) 40 mg DAILYAC PO ; Start 09/13/18 at 08:30; Stop 09/13/18 at 13:30; Status DC Trazodone HCl (Desyrel) 50 mg QHS PO Last administered on 09/13/18at 20:49; Start 09/13/18 at 21:00 Diphenhydramine HCl (Benadryl) 25 mg PRN Q6HRS PRN PO ITCHING Last administered on 09/14/18at 02:35; Start 09/13/18 at 09:15 Metoprolol Tartrate (Lopressor Vial) 5 mg 1X ONCE IVP ; Start 09/13/18 at 10:15 ; Stop 09/13/18 at 10:15; Status DC Labetalol HCl (Normodyne Iv Push) 10 mg 1X ONCE IVP Last administered on at 10:15; Start 09/13/18 at 10:15; Stop 09/13/18 at 10:16; Status DC Chlorpromazine HCl (Thorazine) 10 mg PRN Q6HRS PRN PO HICCUPS Last administered on 09/13/18at 12:01; Start 09/13/18 at 11:15; Stop 09/13/18 at 14:57 ; Status DC Nicotine (Nicoderm Cq 21mg) 1 patch DAILY TD Last administered on 09/14/18at 07: 44; Start 09/13/18 at 13:00 Lorazepam (Ativan) 4 mg PRN Q3HRS PRN IV ANXIETY / AGITATION Last administered on 09/13/18at 15:07; Start 09/13/18 at 11:15 Nicotine Polacrilex (Nicorette Gum) 1 each PRN Q1HR PRN BC SMOKING CESSATION Last administered on 09/13/18at 14:24; Start 09/13/18 at 11:15 Nicotine (Nicoderm Cq 21mg) 1 patch DAILY TD ; Start 09/14/18 at 09:00; Status UNV Thiamine HCl 100 mg/Dextrose 51 ml @ 102 mls/hr DAILY IV ; Start 09/18/18 at 09 :00 Pantoprazole Sodium (PROTONIX VIAL for IV PUSH) 40 mg DAILYAC IVP Last administered on 09/14/18at 07:42; Start 09/13/18 at 14:00 Chlordiazepoxide (Librium) 25 mg PRN Q6HRS PRN PO ANXIETY / AGITATION Last administered on 09/13/18at 23:47; Start 09/13/18 at 15:00 Chlorpromazine HCl (Thorazine) 25 mg PRN Q6HRS PRN PO HICCUPS/AGITATION Last administered on 09/13/18at 15:06; Start 09/13/18 at 14:57 Potassium Chloride (Klor-Con) 40 meq 1X ONCE PO ; Start 09/14/18 at 11:15; Stop 09/14/18 at 11:16; Status DC Active Scripts Active Ativan (Lorazepam) 1 Mg Tablet 0.5 Mg PO PRN Q8HRS PRN Protonix (Pantoprazole Sodium) 20 Mg Tablet.dr 40 Mg PO DAILY 30 Days [place] 5-325 Tablet (Acetaminophen/Hydrocodone Bitart) 1 Each Tablet 1 Tab PO Q6HRS PRN Humalog (Insulin Lispro) 100 Unit/1 Ml Insuln.pen 10 Units SQ TIDAC 30 Days Lantus Solostar (Insulin Glargine,Hum.rec.anlog) 100 Unit/1 Ml Insuln.pen 30 Units SQ QHS 30 Days Zofran Odt (Ondansetron) 4 Mg Tab.rapdis 1 Tab SL Q4HRS PRN Reported Benadryl (Diphenhydramine Hcl) 25 Mg Capsule 50 Mg PO QHS Melatonin 3 Mg Tablet 1 Tab PO QHS Folic Acid 1 Mg Tablet 1 Tab PO DAILY Mirtazapine 30 Mg Tablet 1 Tab PO QHS Haloperidol 5 Mg Tablet 10 Mg PO BID Trazodone Hcl 150 Mg Tablet 50 Mg PO HS Vitals/I & O Vital Sign - Last 24 Hours 09/13/18 09/13/18 09/13/18 09/13/18 12:04 15:00 19:00 23:11 Temp 98.4 98.2 97.9 98.4 98.2 97.9 Pulse 90 89 90 Resp 14 18 18 B/P (MAP) 129/96 (107) 127/89 (102) 134/87 (103) Pulse Ox 98 98 96 O2 Delivery Room Air Room Air Nasal Cannula Room Air 09/13/18 09/14/18 09/14/18 09/14/18 23:48 01:02 02:43 07:43 Temp 98.4 98.4 Pulse 93 Resp 18 18 18 B/P (MAP) 133/92 (106) Pulse Ox 96 96 98 O2 Delivery Room Air Room Air Room Air 09/14/18 07:48 Temp 98.3 98.3 Pulse 88 Resp 16 B/P (MAP) 124/88 (100) Pulse Ox 97 O2 Delivery Room Air Intake and Output 09/13/18 09/13/18 09/14/18 15:01 23:01 07:01 Intake Total 0 ml 220 ml Output Total 100 ml Balance 0 ml 220 ml -100 ml JUSTIN REID [id number] Sep 14, 2018 11:42
[2018-09-14] MEDS: chlordiazePOXIDE HCL 25 MG CAPSULE PO PRN (12:09)
[2018-09-14] MEDS: MULTIVIT INFUSN,ADULT 4,VIT K 10 ML, THIAMINE INJ 100 MG, FOLIC ACID INJ 1 MG in IV NOR... IV SCH (12:10)
--- NOTE | 2018-09-14 12:48 | PDOC ---
Subjective: Subjective: Middle abdominal pain sometimes. No vomiting. Objective: Objective: Per RN - no longer agitated, stopped 1:1, no vomiting. Vital Signs: Vital Signs Date Time Temp Pulse Resp B/P (MAP) Pulse Ox O2 Delivery O2 Flow Rate FiO2 09/14/18 11:30 98.0 103 16 115/36 (62) 99 Room Air 98.0 Labs: Laboratory Tests Test 09/13/18 16:54 09/13/18 20:42 09/13/18 23:35 09/14/18 03:34 Glucose (Fingerstick) 104 mg/dL 79 mg/dL 95 mg/dL 111 mg/dL Test 09/14/18 05:00 09/14/18 05:15 09/14/18 07:40 09/14/18 11:26 Urine Collection Type Unknown Urine Color Baylee Urine Clarity Clear Urine pH 5.5 Urine Specific [place] 1.015 Urine Protein Negative mg/dL Urine Glucose (UA) Negative mg/dL Urine Ketones (Stick) Negative mg/dL Urine Blood Negative Urine Nitrite Negative Urine Bilirubin Negative Urine Urobilinogen Dipstick 0.2 mg/dL Urine Leukocyte Esterase Negative Urine RBC Occ /HPF Urine WBC 0 /HPF Urine Squamous Epithelial Cells Occ /LPF Urine Bacteria 0 /HPF Urine Mucus Slight /LPF Urine Opiates Screen Pos Urine Methadone Screen Neg Urine Barbiturates Neg Urine Phencyclidine Screen Neg Urine Amphetamine/Methamphetamine Neg Urine Benzodiazepines Screen Neg Urine Cocaine Screen Neg Urine Cannabinoids Screen Neg Urine Ethyl Alcohol Neg White Blood Count 8.9 x10^3/uL Red Blood Count 4.75 x10^6/uL Hemoglobin 12.1 g/dL Hematocrit 36.7 % Mean Corpuscular Volume 77 fL Mean Corpuscular Hemoglobin 25 pg Mean Corpuscular Hemoglobin Concent 33 g/dL Red Cell Distribution Width 21.7 % Platelet Count 175 x10^3/uL Neutrophils (%) (Auto) 70 % Lymphocytes (%) (Auto) 18 % Monocytes (%) (Auto) 10 % Eosinophils (%) (Auto) 1 % Basophils (%) (Auto) 1 % Neutrophils # (Auto) 6.2 x10^3uL Lymphocytes # (Auto) 1.6 x10^3/uL Monocytes # (Auto) 0.9 x10^3/uL Eosinophils # (Auto) 0.1 x10^3/uL Basophils # (Auto) 0.0 x10^3/uL Prothrombin Time 14.0 SEC Prothromb Time International Ratio 1.1 Sodium Level 137 mmol/L Potassium Level 2.4 mmol/L Chloride Level 98 mmol/L Carbon Dioxide Level 30 mmol/L Anion Gap 9 Blood Urea Nitrogen 7 mg/dL Creatinine 1.0 mg/dL Estimated GFR (Cockcroft-Gault) 86.6 Glucose Level 103 mg/dL Calcium Level 8.3 mg/dL Lipase 148 U/L Glucose (Fingerstick) 95 mg/dL 98 mg/dL PE: GEN: NAD, was asleep completely under blankets LUNGS: CTAB HEART: RRR ABD: vague periumbilical tenderness, soft NEURO/PSYCH: A & O �3, mild tremor A/P: Chronic alcoholic pancreatitis Hypokalemia -- Apparently tolerating clears, agitation better. Continue support, will change to PO PPI. JIMMY CLAY Sep 14, 2018 12:48
[2018-09-14 15:00] VITALS: BP 112/77
[2018-09-14 19:00] VITALS: BP 109/70
[2018-09-14] MEDS: traZODone 50 MG TABLET. PO SCH (20:51)
[2018-09-14] MEDS: INSULIN GLARGINE 300 UNITS/3 ML INSULN.PEN. SQ SCH (20:52)
[2018-09-14] MEDS: diphenhydrAMINE HCL 25 MG CAPSULE PO SCH (20:52)
[2018-09-14 23:00] VITALS: BP 96/63
[2018-09-15] MEDS: POTASSIUM CL 20MEQ-0.45% NACL 1,000 ML IV SCH ×3 (01:11→10:38)
[2018-09-15] MEDS: HYDROcodone/APAP 5/325MG 1 TAB TABLET PO PRN ×2 (01:12→08:20)
[2018-09-15 03:02] VITALS: BP 109/77
[2018-09-15] MEDS: INSULIN LISPRO 300 UNITS/3 ML INSULN.PEN. SQ SCH ×6 (03:47→12:00)
[2018-09-15 04:47] LABS: CALCIUM 7.3 mg/dL (8.5-10.1); CREATININE 0.8 mg/dL (0.7-1.3); POTASSIUM 3.5 mmol/L (3.5-5.1)
[2018-09-15] MEDS: HEPARIN for SUB-Q USE 5,000 UNIT/ML VIAL. SQ SCH (05:03)
[2018-09-15 07:00] VITALS: BP 110/82
[2018-09-15] MEDS ORDERED: PANTOPRAZOLE 40 MG TABLET.DR. PO SCH (07:30)
--- NOTE | 2018-09-15 08:18 | NUR ---
SW phoned the PAT team for assessment and evaluation. Trev will come in to see pt today.
[2018-09-15] MEDS: NICOTINE 21MG PATCH. TD SCH (08:22)
[2018-09-15] MEDS: chlordiazePOXIDE HCL 25 MG CAPSULE PO PRN (08:43)
[2018-09-15] MEDS: HALOPERIDOL 5 MG TABLET. PO SCH (08:43)
[2018-09-15] MEDS: MULTIVIT INFUSN,ADULT 4,VIT K 10 ML, THIAMINE INJ 100 MG, FOLIC ACID INJ 1 MG in IV NOR... IV SCH (08:44)
[2018-09-15 10:57] VITALS: BP 123/77
--- NOTE | 2018-09-15 11:00 | NUR ---
Pt evaluated by PAT team. Pt agreeable to set up an intake with [facility] for OP services. Pt also gets services at the guidance center. Pt denies hallucinations and voices. RN notified.
--- NOTE | 2018-09-15 11:28 | PDOC ---
PROGRESS NOTES Chief Complaint Chief Complaint CC: Abdominal pain History of Present Illness History of Present Illness Patient was seen and examined this morning. Patient was cooperative and conversational, also eating well. He says he is still painful but attributes that to being hungrier. Patient requested ativan upon discharge for withdrawal symptoms and zofran for nausea. Pt is interested in an intensive outpatient rehab program. Vitals Vitals Vital Signs Date Time Temp Pulse Resp B/P (MAP) Pulse Ox O2 Delivery O2 Flow Rate FiO2 09/15/18 10:57 98.9 81 18 123/77 (92) 96 Room Air 98.9 Physical Exam General: Alert, Oriented X3, Cooperative, No acute distress Heart: Regular rate, Normal S1, Normal S2 Lungs: Clear Abdomen: Normal bowel sounds, Soft, No hepatosplenomegaly, No masses Extremities: No clubbing, No cyanosis, No edema, Normal pulses, No tenderness/ swelling Skin: No rashes, No breakdown, No significant lesion Labs LABS Laboratory Tests Test 09/14/18 11:26 09/14/18 16:40 09/14/18 20:10 09/15/18 01:11 Glucose (Fingerstick) 98 mg/dL (70-99) 94 mg/dL (70-99) 111 mg/dL (70-99) 124 mg/dL (70-99) Test 09/15/18 03:05 09/15/18 03:45 09/15/18 07:17 09/15/18 10:20 Sodium Level 140 mmol/L (136-145) Potassium Level 3.5 mmol/L (3.5-5.1) Chloride Level 105 mmol/L (98-107) Carbon Dioxide Level 30 mmol/L (21-32) Anion Gap 5 (6-14) Blood Urea Nitrogen 3 mg/dL (8-26) Creatinine 0.8 mg/dL (0.7-1.3) Estimated GFR (Cockcroft-Gault) 112.0 Glucose Level 170 mg/dL (70-99) Calcium Level 7.3 mg/dL (8.5-10.1) Glucose (Fingerstick) 145 mg/dL (70-99) 113 mg/dL (70-99) 172 mg/dL (70-99) Review of Systems Review of Systems Heart: denies CP Lungs: Denies SOA Integument: Denies rash Assessment and Plan Assessmemt and Plan Assesment 1. Acute pancreatitis 2. Alcohol withdrawal Plan: 1. Alcohol withdrawal protocol 2. Prescribe lortab for pain, ativan for withdrawal symptoms, and zofran for nausea 3. Home meds 4. Plan to discharge with patient intending to participate in an intensive outpatient rehab program. Comment Review of Relevant I have reviewed the following items patricia (where applicable) has been applied. Labs Laboratory Tests Test 09/13/18 11:45 09/13/18 16:54 09/13/18 20:42 09/13/18 23:35 Glucose (Fingerstick) 111 mg/dL (70-99) 104 mg/dL (70-99) 79 mg/dL (70-99) 95 mg/dL (70-99) Test 09/14/18 03:34 09/14/18 05:00 09/14/18 05:15 09/14/18 07:40 Glucose (Fingerstick) 111 mg/dL (70-99) 95 mg/dL (70-99) Urine Collection Type Unknown Urine Color Baylee Urine Clarity Clear Urine pH 5.5 Urine Specific [place] 1.015 Urine Protein Negative mg/dL (NEG-TRACE) Urine Glucose (UA) Negative mg/dL (NEG) Urine Ketones (Stick) Negative mg/dL (NEG) Urine Blood Negative (NEG) Urine Nitrite Negative (NEG) Urine Bilirubin Negative (NEG) Urine Urobilinogen Dipstick 0.2 mg/dL (0.2 mg/dL) Urine Leukocyte Esterase Negative (NEG) Urine RBC Occ /HPF (0-2) Urine WBC 0 /HPF (0-4) Urine Squamous Epithelial Cells Occ /LPF Urine Bacteria 0 /HPF (0-FEW) Urine Mucus Slight /LPF Urine Opiates Screen Pos (NEG) Urine Methadone Screen Neg (NEG) Urine Barbiturates Neg (NEG) Urine Phencyclidine Screen Neg (NEG) Urine Amphetamine/Methamphetamine Neg (NEG) Urine Benzodiazepines Screen Neg (NEG) Urine Cocaine Screen Neg (NEG) Urine Cannabinoids Screen Neg (NEG) Urine Ethyl Alcohol Neg (NEG) White Blood Count 8.9 x10^3/uL (4.0-11.0) Red Blood Count 4.75 x10^6/uL (4.30-5.70) Hemoglobin 12.1 g/dL (13.0-17.5) Hematocrit 36.7 % (39.0-53.0) Mean Corpuscular Volume 77 fL (79-100) Mean Corpuscular Hemoglobin 25 pg (25-35) Mean Corpuscular Hemoglobin Concent 33 g/dL (31-37) Red Cell Distribution Width 21.7 % (11.5-14.5) Platelet Count 175 x10^3/uL (140-400) Neutrophils (%) (Auto) 70 % (31-73) Lymphocytes (%) (Auto) 18 % (24-48) Monocytes (%) (Auto) 10 % (0-9) Eosinophils (%) (Auto) 1 % (0-3) Basophils (%) (Auto) 1 % (0-3) Neutrophils # (Auto) 6.2 x10^3uL (1.8-7.7) Lymphocytes # (Auto) 1.6 x10^3/uL (1.0-4.8) Monocytes # (Auto) 0.9 x10^3/uL (0.0-1.1) Eosinophils # (Auto) 0.1 x10^3/uL (0.0-0.7) Basophils # (Auto) 0.0 x10^3/uL (0.0-0.2) Prothrombin Time 14.0 SEC (11.7-14.0) Prothromb Time International Ratio 1.1 (0.8-1.1) Sodium Level 137 mmol/L (136-145) Potassium Level 2.4 mmol/L (3.5-5.1) Chloride Level 98 mmol/L (98-107) Carbon Dioxide Level 30 mmol/L (21-32) Anion Gap 9 (6-14) Blood Urea Nitrogen 7 mg/dL (8-26) Creatinine 1.0 mg/dL (0.7-1.3) Estimated GFR (Cockcroft-Gault) 86.6 Glucose Level 103 mg/dL (70-99) Calcium Level 8.3 mg/dL (8.5-10.1) Lipase 148 U/L (73-393) Test 09/14/18 11:26 09/14/18 16:40 09/14/18 20:10 09/15/18 01:11 Glucose (Fingerstick) 98 mg/dL (70-99) 94 mg/dL (70-99) 111 mg/dL (70-99) 124 mg/dL (70-99) Test 09/15/18 03:05 09/15/18 03:45 09/15/18 07:17 09/15/18 10:20 Sodium Level 140 mmol/L (136-145) Potassium Level 3.5 mmol/L (3.5-5.1) Chloride Level 105 mmol/L (98-107) Carbon Dioxide Level 30 mmol/L (21-32) Anion Gap 5 (6-14) Blood Urea Nitrogen 3 mg/dL (8-26) Creatinine 0.8 mg/dL (0.7-1.3) Estimated GFR (Cockcroft-Gault) 112.0 Glucose Level 170 mg/dL (70-99) Calcium Level 7.3 mg/dL (8.5-10.1) Glucose (Fingerstick) 145 mg/dL (70-99) 113 mg/dL (70-99) 172 mg/dL (70-99) Laboratory Tests Test 09/14/18 11:26 09/14/18 16:40 09/14/18 20:10 09/15/18 01:11 Glucose (Fingerstick) 98 mg/dL (70-99) 94 mg/dL (70-99) 111 mg/dL (70-99) 124 mg/dL (70-99) Test 09/15/18 03:05 09/15/18 03:45 09/15/18 07:17 09/15/18 10:20 Sodium Level 140 mmol/L (136-145) Potassium Level 3.5 mmol/L (3.5-5.1) Chloride Level 105 mmol/L (98-107) Carbon Dioxide Level 30 mmol/L (21-32) Anion Gap 5 (6-14) Blood Urea Nitrogen 3 mg/dL (8-26) Creatinine 0.8 mg/dL (0.7-1.3) Estimated GFR (Cockcroft-Gault) 112.0 Glucose Level 170 mg/dL (70-99) Calcium Level 7.3 mg/dL (8.5-10.1) Glucose (Fingerstick) 145 mg/dL (70-99) 113 mg/dL (70-99) 172 mg/dL (70-99) Medications Current Medications Fentanyl Citrate (Fentanyl 2ml Vial) 25 mcg PRN Q15MIN PRN IV PAIN GREATER THAN 3/10 Last administered on 09/13/18at 05:33; Start 09/13/18 at 04:30; Stop at 20:38; Status DC Sodium Chloride 1,000 ml @ 1,000 mls/hr Q1H IV Last administered on 09/13/18at 04:56; Start 09/13/18 at 04:30; Stop 09/13/18 at 05:29; Status DC Ondansetron HCl (Zofran) 4 mg 1X ONCE IV Last administered on 09/13/18at 04:52 ; Start 09/13/18 at 04:30; Stop 09/13/18 at 04:31; Status DC Lorazepam (Ativan) 1 mg 1X ONCE IV Last administered on 09/13/18at 04:54; Start 09/13/18 at 04:30; Stop 09/13/18 at 04:31; Status DC Ondansetron HCl (Zofran) 4 mg 1X ONCE IV Last administered on 09/13/18at 05:48 ; Start 09/13/18 at 05:45; Stop 09/13/18 at 05:59; Status DC Fentanyl Citrate (Fentanyl 2ml Vial) 25 mcg 1X ONCE IV Last administered on at 06:18; Start 09/13/18 at 06:00; Stop 09/13/18 at 06:01; Status DC Lorazepam (Ativan) 1 mg 1X ONCE IV Last administered on 09/13/18at 06:17; Start 09/13/18 at 06:00; Stop 09/13/18 at 06:01; Status DC Ondansetron HCl (Zofran) 4 mg PRN Q8HRS PRN IV NAUSEA/VOMITING Last administered on 09/14/18at 02:35; Start 09/13/18 at 06:00; Stop 09/14/18 at 05:59 ; Status DC Fentanyl Citrate (Fentanyl 2ml Vial) 50 mcg PRN Q2HR PRN IV PAIN Last administered on 09/13/18at 09:14; Start 09/13/18 at 06:00; Stop 09/13/18 at 20:35 ; Status DC Sodium Chloride 1,000 ml @ 125 mls/hr Q8H IV Last administered on 09/13/18at 07 :32; Start 09/13/18 at 06:00; Stop 09/14/18 at 05:59; Status DC Acetaminophen (Tylenol) 650 mg PRN Q4HRS PRN PO FEVER; Start 09/13/18 at 06:00 ; Stop 09/14/18 at 05:59; Status DC Potassium Chloride/Sodium Chloride 1,000 ml @ 175 mls/hr Q5H43M IV Last administered on 09/15/18at 06:39; Start 09/13/18 at 08:30 Heparin Sodium (Porcine) (Heparin Sodium) 5,000 unit Q8HRS SQ ; Start 09/13/18 at 14:00 Insulin Human Lispro (HumaLOG) 0-9 UNITS Q4HRS SQ ; Start 09/13/18 at 08:00 Dextrose (Dextrose 50%-Water Syringe) 12.5 gm PRN Q15MIN PRN IV SEE COMMENTS; Start 09/13/18 at 08:00 Multivitamins 10 ml/Thiamine HCl 100 mg/Folic Acid 1 mg/Sodium Chloride 1,011.2 ml @ 100 mls/ hr DAILY IV Last administered on 09/15/18at 08:44; Start at 09:00; Stop 09/17/18 at 19:07 Lorazepam (Ativan) 2 mg PRN Q1HR PRN IV For CIWA 8-14 Last administered on 09/14at 17:22; Start 09/13/18 at 08:00 Clonidine HCl (Catapres) 0.1 mg PRN Q1HR PRN PO SBP > 180 or DBP > 100, MRX3; Start 09/13/18 at 08:00 Diphenhydramine HCl (Benadryl) 50 mg QHS PO Last administered on 09/14/18at 20: 52; Start 09/13/18 at 21:00 Folic Acid (Folic Acid) 1 mg DAILY PO ; Start 09/18/18 at 09:00 Haloperidol (Haldol) 10 mg BID PO Last administered on 09/15/18at 08:43; Start 09/13/18 at 09:00 Acetaminophen/ Hydrocodone Bitart (Lortab 5/325) 1 tab Q6HRS PRN PO PAIN MILD Last administered on 09/15/18at 08:20; Start 09/13/18 at 08:00 Insulin Glargine (Lantus) 30 units QHS SQ ; Start 09/13/18 at 21:00 Insulin Human Lispro (HumaLOG) 10 units TIDAC SQ ; Start 09/13/18 at 11:30 Lorazepam (Ativan) 0.5 mg PRN Q8HRS PRN PO ANXIETY / AGITATION 1st Choice Last administered on 09/15/18at 03:57; Start 09/13/18 at 08:00 Ondansetron HCl (Zofran Odt) 4 mg PRN Q4HRS PRN PO VOMITING Last administered on 09/14/18at 12:09; Start 09/13/18 at 08:00 Non-Formulary Medication (Melatonin ) 1 tab QHS PO ; Start 09/13/18 at 21:00; Status UNV Mirtazapine (Remeron) 15 mg PRN QHS PRN PO INSOMNIA Last administered on at 23:47; Start 09/13/18 at 21:00 Pantoprazole Sodium (Protonix) 40 mg DAILYAC PO ; Start 09/13/18 at 08:30; Stop 09/13/18 at 13:30; Status DC Trazodone HCl (Desyrel) 50 mg QHS PO Last administered on 09/14/18at 20:51; Start 09/13/18 at 21:00 Diphenhydramine HCl (Benadryl) 25 mg PRN Q6HRS PRN PO ITCHING Last administered on 09/14/18at 02:35; Start 09/13/18 at 09:15 Metoprolol Tartrate (Lopressor Vial) 5 mg 1X ONCE IVP ; Start 09/13/18 at 10:15 ; Stop 09/13/18 at 10:15; Status DC Labetalol HCl (Normodyne Iv Push) 10 mg 1X ONCE IVP Last administered on at 10:15; Start 09/13/18 at 10:15; Stop 09/13/18 at 10:16; Status DC Chlorpromazine HCl (Thorazine) 10 mg PRN Q6HRS PRN PO HICCUPS Last administered on 09/13/18at 12:01; Start 09/13/18 at 11:15; Stop 09/13/18 at 14:57 ; Status DC Nicotine (Nicoderm Cq 21mg) 1 patch DAILY TD Last administered on 09/15/18at 08: 22; Start 09/13/18 at 13:00 Lorazepam (Ativan) 4 mg PRN Q3HRS PRN IV SEVERE ANXIETY / AGITATION Last administered on 09/13/18at 15:07; Start 09/13/18 at 11:15 Nicotine Polacrilex (Nicorette Gum) 1 each PRN Q1HR PRN BC SMOKING CESSATION Last administered on 09/13/18at 14:24; Start 09/13/18 at 11:15 Nicotine (Nicoderm Cq 21mg) 1 patch DAILY TD ; Start 09/14/18 at 09:00; Status UNV Thiamine HCl 100 mg/Dextrose 51 ml @ 102 mls/hr DAILY IV ; Start 09/18/18 at 09 :00 Pantoprazole Sodium (PROTONIX VIAL for IV PUSH) 40 mg DAILYAC IVP Last administered on 09/14/18at 07:42; Start 09/13/18 at 14:00; Stop 09/14/18 at 12:49 ; Status DC Chlordiazepoxide (Librium) 25 mg PRN Q6HRS PRN PO ANXIETY / AGITATION Last administered on 09/15/18at 08:43; Start 09/13/18 at 15:00 Chlorpromazine HCl (Thorazine) 25 mg PRN Q6HRS PRN PO HICCUPS/AGITATION Last administered on 09/13/18at 15:06; Start 09/13/18 at 14:57 Potassium Chloride (Klor-Con) 40 meq 1X ONCE PO Last administered on at 12:09; Start 09/14/18 at 11:15; Stop 09/14/18 at 11:16; Status DC Pantoprazole Sodium (Protonix) 40 mg DAILYAC PO Last administered on 09/15/18at 08:19; Start 09/15/18 at 07:30 Active Scripts Active Ativan (Lorazepam) 1 Mg Tablet 0.5 Mg PO PRN Q8HRS PRN Protonix (Pantoprazole Sodium) 20 Mg Tablet.dr 40 Mg PO DAILY 30 Days [place] 5-325 Tablet (Acetaminophen/Hydrocodone Bitart) 1 Each Tablet 1 Tab PO Q6HRS PRN Humalog (Insulin Lispro) 100 Unit/1 Ml Insuln.pen 10 Units SQ TIDAC 30 Days Lantus Solostar (Insulin Glargine,Hum.rec.anlog) 100 Unit/1 Ml Insuln.pen 30 Units SQ QHS 30 Days Zofran Odt (Ondansetron) 4 Mg Tab.rapdis 1 Tab SL Q4HRS PRN Reported Benadryl (Diphenhydramine Hcl) 25 Mg Capsule 50 Mg PO QHS Melatonin 3 Mg Tablet 1 Tab PO QHS Folic Acid 1 Mg Tablet 1 Tab PO DAILY Mirtazapine 30 Mg Tablet 1 Tab PO QHS Haloperidol 5 Mg Tablet 10 Mg PO BID Trazodone Hcl 150 Mg Tablet 50 Mg PO HS Vitals/I & O Vital Sign - Last 24 Hours 09/14/18 09/14/18 09/14/18 09/14/18 11:30 15:00 17:23 19:00 Temp 98.0 97.7 97.9 98.0 97.7 97.9 Pulse 103 84 79 Resp 16 16 20 B/P (MAP) 115/36 (62) 112/77 (89) 109/70 (83) Pulse Ox 99 99 96 O2 Delivery Room Air Room Air Room Air Room Air 09/14/18 09/14/18 09/15/18 09/15/18 20:00 23:00 01:12 03:02 Temp 97.9 97.4 97.9 97.4 Pulse 76 85 Resp 20 18 20 B/P (MAP) 96/63 (74) 109/77 (88) Pulse Ox 95 96 98 O2 Delivery Room Air Room Air Room Air Room Air 09/15/18 09/15/18 09/15/18 09/15/18 07:00 08:20 09:20 10:57 Temp 99.3 98.9 99.3 98.9 Pulse 72 81 Resp 18 20 20 18 B/P (MAP) 110/82 (91) 123/77 (92) Pulse Ox 96 96 96 96 O2 Delivery Room Air Room Air Room Air Room Air Intake and Output 09/14/18 09/14/18 09/15/18 15:01 23:01 07:01 Intake Total 900 ml 850 ml 3051.2 ml Balance 900 ml 850 ml 3051.2 ml JUSTIN REID III DO Sep 15, 2018 11:28
--- NOTE | 2018-09-15 11:52 | PDOC ---
Subjective: Subjective: Feels better - says abd pain is less and is tolerating regular food w/o vomiting. Objective: Objective: Has discharge order. Vital Signs: Vital Signs Date Time Temp Pulse Resp B/P (MAP) Pulse Ox O2 Delivery O2 Flow Rate FiO2 09/15/18 10:57 98.9 81 18 123/77 (92) 96 Room Air 98.9 Labs: Laboratory Tests Test 09/14/18 16:40 09/14/18 20:10 09/15/18 01:11 09/15/18 03:45 Glucose (Fingerstick) 94 mg/dL (70-99) 111 mg/dL (70-99) 124 mg/dL (70-99) 145 mg/dL (70-99) Test 09/15/18 07:17 09/15/18 10:20 09/15/18 11:38 Glucose (Fingerstick) 113 mg/dL (70-99) 172 mg/dL (70-99) 135 mg/dL (70-99) PE: GEN: NAD LUNGS: CTAB HEART: RRR ABD: soft, non-tender NEURO/PSYCH: A & O �3 - more awake today A/P: Chronic alcoholic pancreatitis -- Tolerating PO w/ plans to discharge. Encouraged abstinence. Continue PPI. JIMMY CLAY Sep 15, 2018 11:52
[2018-09-15] MEDS ORDERED: LORA-434 PO (11:56)
[2018-09-15] MEDS ORDERED: ONDA4TAB12 PO (11:59)
[2018-09-15] MEDS ORDERED: HYDR-2759 PO (12:02)
--- NOTE | 2018-09-15 13:32 | NUR ---
Discharge teaching provided written and verbal to pt,understanding verbalized. Dismissed to home accompanied by his dad at 1303. Pt's wallet was found in his bed after discharge. Pt's family notified by clerical secretary and they will come back to get it today.
[2018-09-18] MEDS ORDERED: FOLIC ACID 1 MG TABLET. PO SCH (09:00)
[2018-09-18] MEDS ORDERED: THIAMINE INJ 100 MG in IV DEXTROSE 5% 50 ML IV SCH (09:00)
--- NOTE | 2018-10-07 12:27 | DS ---
DATE OF DISCHARGE: 09/15/2018 ADMISSION DIAGNOSES: Pancreatitis, alcohol issues and schizophrenia. DISCHARGE DIAGNOSIS: Resolving pancreatitis. HOSPITAL COURSE: The patient is a pleasant 33-year-old male who has alcohol issues and schizophrenia. He was admitted with pancreatitis. We gave him IV banana bag and alcohol withdrawal protocol, pain meds and antiemetics and consulted GI. Over the next few days, he did better. We discharged with a close outpatient followup. DISPOSITION: Home. ACTIVITY: As tolerated. DIET: Low sodium. MEDICATIONS: Please see the MRAD. TOTAL TIME: 32 minutes. JUSTIN REID DO DR: RANDI/shaw JOB#: [id number] / [id number]
== END 2018-09-15 13:03 | disposition home or self-care (01) | DRG 438 ==
LOC: ER 04:01 → 5 NORTH 05:58
PROVIDERS: ADMIT Hospitalist; ATTEND Hospitalist
DX: K85.90 Acute pancreatitis without necrosis or infection, unspecified (principal); R65.11 Systemic inflammatory response syndrome (SIRS) of non-infectious origin with acute organ dysfunction; N17.9 Acute kidney failure, unspecified; F10.239 Alcohol dependence with withdrawal, unspecified; E87.1 Hypo-osmolality and hyponatremia; K86.0 Alcohol-induced chronic pancreatitis; E86.0 Dehydration; E11.65 Type 2 diabetes mellitus with hyperglycemia; I10 Essential (primary) hypertension; E87.6 Hypokalemia; F41.9 Anxiety disorder, unspecified; R06.6 Hiccough; F32.9 Major depressive disorder, single episode, unspecified; F20.9 Schizophrenia, unspecified; D64.9 Anemia, unspecified; F17.210 Nicotine dependence, cigarettes, uncomplicated; K21.0 Gastro-esophageal reflux disease with esophagitis; K76.0 Fatty (change of) liver, not elsewhere classified; Z66 Do not resuscitate; Z79.4 Long term (current) use of insulin; Z79.82 Long term (current) use of aspirin; Z82.49 Family history of ischemic heart disease and other diseases of the circulatory system; Z91.5 Personal history of self-harm
CPT/HCPCS: 36415; 74176; 80048; 80053; 80307; 81001; 82962; 83690; 85007; 85025; 85610; 85730; 96374; 96375; C9113; G0480; J1815; J2060; J2405; J3010; J3490; J7030; Q0161; Q0162; Q0163; 99285-25; G0378